=== PATIENT | male | born 1995 | race Hispanic/Latino ===

== ENCOUNTER 2019-10-29 19:19 | Observation (INO) | payer OTHER, SELFPAY ==
[~2019-10-29] VITALS: Ht 167.6 cm; Wt 90.4 kg
[2019-10-29] MEDS ORDERED: SODIUM CHLORIDE 0.9% 1000ML 1,000 ML IV ONE ×2 (19:45→22:30)
[2019-10-29] MEDS ORDERED: ACETAMINOPHEN 325 MG TAB PO ONE (19:45)
[2019-10-29] MEDS ORDERED: CEFEPIME 2 GM/NS 0.9% 100 ML 100 ML IV ONE (19:45)
[2019-10-29 20:07] LABS: BASOPHILS % 0.2 % (0.0-1.0); HEMATOCRIT 47.8 % (38.2-49.6); HEMOGLOBIN 16.1 g/dL (14.0-18.0); LYMPHOCYTES # (AUTO) 1.2 (1.0-3.2); MEAN CORPUSCULAR HEMOGLOBIN 27.9 pg (28-32); MEAN CORPUSCULAR HGB CONC 33.7 g/dL (31-35); MEAN CORPUSCULAR VOLUME 82.7 fL (81-99); MONOCYTES # (AUTO) 0.5 (0.2-0.8); MONOCYTES % 10.4 % (4.4-11.3); NEUTROPHILS # (AUTO) 3.2 (2.1-6.9); PLATELET COUNT 190 x10e3/uL (140-360); RED BLOOD COUNT 5.78 x10e6/uL (4.3-5.7); RED CELL DISTRIBUTION WIDTH 12.3 % (11.7-14.4)
[2019-10-29 20:12] LABS: INR 0.96; PROTHROMBIN TIME 13.3 seconds (11.9-14.5)
[2019-10-29 20:13] LABS: PARTIAL THROMBOPLASTIN TIME 28.5 seconds (23.8-35.5)
[2019-10-29 20:18] LABS: CLARITY,URINE SL CLOUDY (CLEAR); COLOR,URINE STRAW (YELLOW); KETONES,URINE NEGATIVE (NEGATIVE); LEUKOCYTE ESTERASE ,URINE NEGATIVE (NEGATIVE); NITRITE,URINE NEGATIVE (NEGATIVE); PROTEIN,URINE DIPSTICK 1+ (NEGATIVE); URINE UROBILINOGEN 1 mg/dL (0.2 - 1)
[2019-10-29 20:19] LABS: BILIRUBIN,URINE SMALL (NEGATIVE)
[2019-10-29 20:20] LABS: ALANINE AMINOTRANSFERASE 76 IU/L (0-55); ALBUMIN 3.9 g/dL (3.5-5.0); ALBUMIN/GLOBULIN RATIO 0.9 (0.8-2.0); ALKALINE PHOSPHATASE 23 IU/L (40-150); ANION GAP 16.6 mmol/L (8-16); BLOOD UREA NITROGEN 10 mg/dL (7-26); BUN/CREATININE RATIO 8 (6-25); CALCIUM 9.4 mg/dL (8.4-10.2); CARBON DIOXIDE 23 mmol/L (22-29); CHLORIDE 103 mmol/L (98-107); CREATININE, SERUM 1.31 mg/dL (0.72-1.25); EST GLOMERULAR FILTRATION RATE > 60 ML/MIN (60-); GLUCOSE 96 mg/dL (74-118); POTASSIUM 3.6 mmol/L (3.5-5.1); SODIUM 139 mmol/L (136-145)
--- NOTE | 2019-10-29 20:25 | Emergency Department Note ---
History of Present Illnes History of Present Illness Chief Complaint: COVID PUI History of Present Illness This is a 24 year old male FEVER, MUSCLE ACHES, CHILLS, SOB AT NIGHT X 1 WEEK WENT TO [facility] YESTERDAY AND SWABBED FOR COVID RESULTS PENDING. Patient also complaining of lower abdominal pain as well for the past several days. He is also had nausea vomiting.. Historian: Patient Arrival Mode: Car Onset (how long ago): day(s) (7) Location: abd, chest Quality: sob,lower abd pain, n/v Radiation: Reports non-radiation Severity: moderate Duration (how long): day(s) (7) Timing of current episode: constant Progression: worsening Context: Denies recent illness, Denies recent surgery Relieving factors: none Exacerbating factors: none Associated symptoms: Reports cough, Reports fever/chills, Reports headaches, Reports loss of appetite, Reports nausea/vomiting, Reports shortness of breath, Reports other (abd pain) Treatments prior to arrival: none Past Medical/Family History Physician Review I have reviewed the patient's past medical and family history. Any updates have been documented here. Past Medical History Recent Fever: Yes Clinical Suspicion of Infectio: Yes New/Unexplained Change in Ment: No Past Medical History: None Past Surgical History: None Social History Smoking Cessation: Never Smoker Alcohol Use: None Any Illegal Drug Use: No Other Last Tetanus: UTD Review of Systems Review of Systems Constitutional: Reports as per HPI EENTM: Reports no symptoms Cardiovascular: Reports no symptoms Respiratory: Reports as per HPI Gastrointestinal: Reports as per HPI Genitourinary: Reports no symptoms Musculoskeletal: Reports no symptoms Integumentary: Reports no symptoms Neurological: Reports no symptoms Psychological: Reports no symptoms Endocrine: Reports no symptoms Hematological/Lymphatic: Reports no symptoms Physical Exam Related Data Allergies: Coded Allergies: No Known Allergies (Unverified , 10/29/19) Triage Vital Signs Vital Signs Date Time Temp Pulse Resp B/P (MAP) Pulse Ox O2 Delivery O2 Flow Rate FiO2 10/29/19 19:42 102.4 118 26 126/91 100 Vital signs reviewed: Yes Physical Exam CONSTITUTIONAL Constitutional: Present well-developed, Present well-nourished HENT HENT: Present normocephalic, Present atraumatic, Present oropharynx clear/moist, Present nose normal HENT L/R: Present left ext ear normal, Present right ext ear normal EYES Eyes: Reports PERRL, Reports conjunctivae normal NECK Neck: Present ROM normal PULMONARY Pulmonary: Present effort normal, Present breath sounds normal CARDIOVASCULAR Cardiovascular: Present regular rhythm, Present heart sounds normal, Present capillary refill normal, Present tachycardia (120) GASTROINTESTINAL Abdominal: Present soft, Present bowel sounds normal, Present tender (moderate tenderness to rlq, suprapubic, and llq) GENITOURINARY Genitourinary: Present exam deferred SKIN Skin: Present warm, Present dry MUSCULOSKELETAL Musculoskeletal: Present ROM normal NEUROLOGICAL Neurological: Present alert, Present oriented x 3, Present no gross motor or sensory deficits PSYCHOLOGICAL Psychological: Present mood/affect normal, Present judgement normal Results Laboratory Result Diagram: 10/29/191948 Laboratory Laboratory Tests Test 10/29/19 19:49 White Blood Count 4.92 x10e3/uL (4.8-10.8) Red Blood Count 5.78 x10e6/uL (4.3-5.7) Hemoglobin 16.1 g/dL (14.0-18.0) Hematocrit 47.8 % (38.2-49.6) Mean Corpuscular Volume 82.7 fL (81-99) Mean Corpuscular Hemoglobin 27.9 pg (28-32) Mean Corpuscular Hemoglobin Concent 33.7 g/dL (31-35) Red Cell Distribution Width 12.3 % (11.7-14.4) Platelet Count 190 x10e3/uL (140-360) Neutrophils (%) (Auto) 65.0 % (38.7-80.0) Lymphocytes (%) (Auto) 24.0 % (18.0-39.1) Monocytes (%) (Auto) 10.4 % (4.4-11.3) Eosinophils (%) (Auto) 0.0 % (0.0-6.0) Basophils (%) (Auto) 0.2 % (0.0-1.0) Neutrophils # (Auto) 3.2 (2.1-6.9) Lymphocytes # (Auto) 1.2 (1.0-3.2) Monocytes # (Auto) 0.5 (0.2-0.8) Eosinophils # (Auto) 0.0 (0.0-0.4) Basophils # (Auto) 0.0 (0.0-0.1) Absolute Immature Granulocyte (auto 0.02 x10e3/uL (0-0.1) Prothrombin Time 13.3 seconds (11.9-14.5) Prothromb Time International Ratio 0.96 Activated Partial Thromboplast Time 28.5 seconds (23.8-35.5) Lactic Acid Level 1.7 mmol/L (0.5-2.0) Lab results reviewed: Yes Imaging Imaging results reviewed: Yes Impressions Procedure: [id number] CT/CT ABDOMEN/PELVIS W Exam Date: Exam Time: REPORT STATUS: Signed EXAM: CT Abdomen and Pelvis WITH contrast INDICATION: Abdominal pain, fever PARISON: None. TECHNIQUE: Abdomen and pelvis were scanned utilizing a multidetector helical scanner from the lung base to the pubic symphysis after administration of IV contrast. Coronal and sagittal reformations were obtained. Routine protocol was performed. Scan was performed when during portal venous phase. IV CONTRAST: 100 mL of Isovue 370 ORAL CONTRAST: None COMPLICATIONS: None RADIATION DOSE: Total DLP: 760 mGy*cm Estimated effective dose: (DLP x 0.015 x size factor) mSv CTDIvol has been reviewed. It is below the limits set by the Radiation Protocol Committee (RPC). Dose modulation, iterative reconstruction, and/or weight based adjustment of the mA/kV was utilized to reduce the radiation dose to as low as reasonably achievable. FINDINGS: LINES and TUBES: None. LOWER THORAX: Multifocal ground glass opacities in the lower lungs. HEPATOBILIARY: No focal hepatic lesions. No biliary ductal dilation. GALLBLADDER: A 2.7 cm calcified gallstone in the gallbladder fundus. No wall thickening or hydrops. SPLEEN: No splenomegaly. PANCREAS: No focal masses or ductal dilatation. ADRENALS: No adrenal nodules KIDNEYS/URETERS: Kidneys enhance symmetrically. No hydronephrosis. No cystic or solid mass lesions. No stones. GI TRACT: No abnormal distention or evidence of bowel obstruction. Small sliding gastric hiatal hernia with mild distal esophageal wall thickening. Appendix is normal. PELVIC ORGANS/BLADDER: Unremarkable. LYMPH NODES: No lymphadenopathy. VESSELS: Unremarkable. PERITONEUM / RETROPERITONEUM: No free air or fluid. BONES: Bilateral L5 inferior pars defects. SOFT TISSUES: Unremarkable. IMPRESSION: 1. Multifocal pneumonia seen in the included lower lungs. 2. Cholelithiasis without evidence of obstructive cholecystitis. 3. Small sliding gastric hiatal hernia with probable mild distal esophagitis. Signed by: Guero Kaminski DO on 10/29/2019 9:47 PM Dictated By: GUERO KAMINSKI DO 46 Transcribed By: DANIELA on 10/29/192146 COPY TO: RENY ALEXANDER MD~ Procedure: [id number] DX/CHEST SINGLE (PORTABLE) Exam Date: 10/29/19 Exam Time: 2117 REPORT STATUS: Signed EXAMINATION: CHEST SINGLE (PORTABLE) INDICATION: Fever, short of breath COMPARISON: Same day abdominal CT FINDINGS: TUBES and LINES: None. LUNGS: Normal lung volumes. Subtle patchy haziness in the lower lungs. PLEURA: No pleural effusion or pneumothorax. HEART AND MEDIASTINUM: The cardiomediastinal silhouette is unremarkable. BONES AND SOFT TISSUES: No acute osseous lesion. Soft tissues are unremarkable. UPPER ABDOMEN: No free air under the diaphragm. IMPRESSION: Subtle patchy haziness in the lower lungs corresponds to multifocal groundglass opacities as seen on concurrent abdominal CT, consistent with multifocal pneumonia. Signed by: Guero Kaminski DO on 10/29/2019 9:51 PM Dictated By: GUERO KAMINSKI DO 50 Transcribed By: DANIELA on 10/29/192150 Procedures 12 Lead ECG Interpretation ECG Interpretation : ECG: ECG 1 Customer Support Agent: Interpreted by ED physician Date: Oct 29, 2019 Time: 19:42 Rhythm: sinus tachycardia Rate: tachycardia BPM: 120 QRS axis: right ST segments normal: Yes T waves normal: Yes Other findings: no other findings Clinical Impression: abnormal ECG Assessment & Plan Medical Decision Making MDM Patient fever chills shortness of breath 1 week also complains of lower abdominal pain with vomiting. SIRS criteria as follows temp greater than 100.9, respiratory rate greater than 20, heart rate greater than 90 CBC, CMP, cardiac enzymes, EKG, chest x-ray, CT abdomen and pelvis, lactic acid, blood cultures,covid 19, urine, urine culture ordered to eval for sepsis, appendicitis, Covid 19, pneumonia, electrolyte abnormality, elevated LFTs, Tylenol on a recent 5 mg by mouth ordered, cefepime 2 g IV ordered, normal saline 1 L IV ordered Patient found to have multifocal pneumonia on imaging. There is very viral in nature. She presumptively Covid 19 at this point. Be admitted to Covid unit. I spoke with Dr. Villalta and Dr. MOOSE Peng also found to have gallstones on imaging. Assessment & Plan Final Impression: (1) Viral pneumonia (2) Fever (3) Gallstones Depart Disposition: ADMITTED Last Vital Signs Date Time Temp Pulse Resp B/P (MAP) Pulse Ox O2 Delivery O2 Flow Rate FiO2 10/29/19 19:42 102.4 118 26 126/91 100 Medications in the ED Acetaminophen 975 mg ONCE ONCE PO Last administered on 10/29/19at 20:09; Admin Dose 975 MG; Start 10/29/19 at 19:45; Stop 10/29/19 at 19:51; Status DC Sodium Chloride 1,000 ml @ 999 mls/hr Q1H1M ONCE IV Last administered on 10/29/19at 20:09; Admin Dose 999 MLS/HR; Start 10/29/19 at 19:45; Stop 10/29/19 at 20:45 Cefepime HCl 100 ml @ 200 mls/hr ONCE ONCE IV Last administered on 10/29/19at 20:09; Admin Dose 200 MLS/HR; Start 10/29/19 at 19:45; Stop 10/29/19 at 20:14; Status DC RENY LAEXANDER MD Oct 29, 2019 20:25
[2019-10-29 20:30] LABS: RBC,URINE 0-5 /HPF (0-5); WBC,URINE (MAN) 0-5 /HPF (0-5)
[2019-10-29 20:31] LABS: BACTERIA,URINE FEW /HPF
[2019-10-29 20:32] LABS: EPITHELIAL CELLS,URINE FEW /LPF
--- NOTE | 2019-10-29 21:50 | Diagnostic Imaging Report ---
EXAM: CT Abdomen and Pelvis WITH contrast INDICATION: Abdominal pain, fever PARISON: None. TECHNIQUE: Abdomen and pelvis were scanned utilizing a multidetector helical scanner from the lung base to the pubic symphysis after administration of IV contrast. Coronal and sagittal reformations were obtained. Routine protocol was performed. Scan was performed when during portal venous phase. IV CONTRAST: 100 mL of Isovue 370 ORAL CONTRAST: None COMPLICATIONS: None RADIATION DOSE: Total DLP: 760 mGy*cm Estimated effective dose: (DLP x 0.015 x size factor) mSv CTDIvol has been reviewed. It is below the limits set by the Radiation Protocol Committee (RPC). Dose modulation, iterative reconstruction, and/or weight based adjustment of the mA/kV was utilized to reduce the radiation dose to as low as reasonably achievable. FINDINGS: LINES and TUBES: None. LOWER THORAX: Multifocal ground glass opacities in the lower lungs. HEPATOBILIARY: No focal hepatic lesions. No biliary ductal dilation. GALLBLADDER: A 2.7 cm calcified gallstone in the gallbladder fundus. No wall thickening or hydrops. SPLEEN: No splenomegaly. PANCREAS: No focal masses or ductal dilatation. ADRENALS: No adrenal nodules KIDNEYS/URETERS: Kidneys enhance symmetrically. No hydronephrosis. No cystic or solid mass lesions. No stones. GI TRACT: No abnormal distention or evidence of bowel obstruction. Small sliding gastric hiatal hernia with mild distal esophageal wall thickening. Appendix is normal. PELVIC ORGANS/BLADDER: Unremarkable. LYMPH NODES: No lymphadenopathy. VESSELS: Unremarkable. PERITONEUM / RETROPERITONEUM: No free air or fluid. BONES: Bilateral L5 inferior pars defects. SOFT TISSUES: Unremarkable. IMPRESSION: 1. Multifocal pneumonia seen in the included lower lungs. 2. Cholelithiasis without evidence of obstructive cholecystitis. 3. Small sliding gastric hiatal hernia with probable mild distal esophagitis. Signed by: Guero Kaminski DO on 10/29/2019 9:47 PM
--- NOTE | 2019-10-29 21:54 | Diagnostic Imaging Report ---
EXAMINATION: CHEST SINGLE (PORTABLE) INDICATION: Fever, short of breath COMPARISON: Same day abdominal CT FINDINGS: TUBES and LINES: None. LUNGS: Normal lung volumes. Subtle patchy haziness in the lower lungs. PLEURA: No pleural effusion or pneumothorax. HEART AND MEDIASTINUM: The cardiomediastinal silhouette is unremarkable. BONES AND SOFT TISSUES: No acute osseous lesion. Soft tissues are unremarkable. UPPER ABDOMEN: No free air under the diaphragm. IMPRESSION: Subtle patchy haziness in the lower lungs corresponds to multifocal groundglass opacities as seen on concurrent abdominal CT, consistent with multifocal pneumonia. Signed by: Guero Kaminski DO on 10/29/2019 9:51 PM
[2019-10-29] MEDS ORDERED: IOPAMIDOL 370 MG/ML 200 ML INFUS..BTL INJ ONE (22:37)
[2019-10-29] MEDS ORDERED: SODIUM CHLORIDE 0.9% 50ML 50 ML ONE (22:37)
[2019-10-29] MEDS ORDERED: AZITHROMYCIN 500MG/SOD CHL 0.9% 250ML BAG IV SCH (22:45)
[2019-10-30] VITALS (9 sets, daily range): BP systolic 102–138; BP diastolic 65–98
[2019-10-30] MEDS: ACETAMINOPHEN 325 MG TAB PO PRN ×2 (01:04→09:00)
--- NOTE | 2019-10-30 01:06 | Progress Note ---
DATE: ADDENDUM: The patient has received 2 L of fluid. He seems improved with this. His heart rate has returned to 80s to 90. His saturation is 100% and he feels improved. The patient is stable for discharge home. He should return to the ER if he has worsening dyspnea. He should follow up with his PCP after he is symptom-free. He should remain in self quarantine. MD JOSE Ivory/JOSE /[id number]
[2019-10-30] MEDS: SODIUM CHLORIDE 0.9% 1000ML 1,000 ML IV SCH ×3 (01:12→14:45)
--- NOTE | 2019-10-30 02:01 | Consultation ---
DATE OF CONSULTATION: Pulmonary Critical Care Consultation CHIEF COMPLAINT: Vomiting, fever, and malaise HISTORY OF PRESENT ILLNESS: The patient is a 24-year-old man. He reports some fevers and malaise for about 2 weeks. He also notes some nausea and vomiting. He reports some mild dyspnea. He went to the [facility] yesterday and received some fluids and was tested for COVID, but has not received his results. He returns today because he is feeling worse. PAST SURGICAL HISTORY: Noncontributory. PAST MEDICAL HISTORY: 1. No prior history of asthma. 2. No prior history of heart disease. 3. No prior history of diabetes. ALLERGIES: NO KNOWN DRUG ALLERGIES. SOCIAL HISTORY: The patient is not a smoker. He is not a drinker. He does not vape. FAMILY HISTORY: Family history is noncontributory. REVIEW OF SYSTEMS: The patient is afebrile. He was febrile earlier. He has some headache. He reports malaise. He has no neck pain. He reports mild dyspnea. He does not complain of cough. There is no chest pain. He has some nausea and vomiting. There is no leg edema. He has no neurological abnormalities. PHYSICAL EXAMINATION: VITAL SIGNS: The blood pressure is 126/91, pulse is 118, and the respiratory rate is 26. Saturation is 100% and his temperature is 102.4. HEENT: Shows no facial swelling or erythema. CARDIAC: Reveals regular rate and rhythm with normal S1, S2. LUNGS: Auscultation of lungs reveals clear breath sounds bilaterally. There is no wheezing. ABDOMEN: Soft and nontender. There is no rebound or guarding. EXTREMITIES: Shows no leg edema or calf tenderness. There is no cyanosis or clubbing. SKIN: Shows no rashes. NEUROLOGICAL: Shows no focal abnormalities. LABORATORY DATA: White blood cell count is 4.9, hemoglobin is 16.1. The platelet count is 190. BUN to creatinine ratio is 10 to 1.31. Potassium is 3.6. AST is 49, ALT is 76. RADIOGRAPHIC DATA: Chest x-ray shows patchy haziness in the lower lungs suggestive of viral pneumonia. CT scan of the abdomen and pelvis shows multifocal pneumonia as well as cholelithiasis. IMPRESSION: 1. Viral pneumonia and COVID-19 infection. 2. Acute kidney injury. 3. Cholelithiasis. PLAN: 1. The patient should receive IV fluids. 2. Zithromax. 3. Tylenol. 4. Oxygen as needed. 5. Observation in hospital until kidney function and tachycardia have improved. MD JOSE Ivory/JOSE /[id number]
[2019-10-30] MEDS ORDERED: CEFEPIME HCL 2 GM/SOD CHL 0.9% 100 ML BAG IV SCH (06:00)
[2019-10-30 06:25] LABS: BASOPHILS % 0.3 % (0.0-1.0); HEMATOCRIT 47.1 % (38.2-49.6); HEMOGLOBIN 15.6 g/dL (14.0-18.0); LYMPHOCYTES # (AUTO) 1.1 (1.0-3.2); LYMPHOCYTES % 28.3 % (18.0-39.1); MEAN CORPUSCULAR HEMOGLOBIN 27.9 pg (28-32); MEAN CORPUSCULAR HGB CONC 33.1 g/dL (31-35); MEAN CORPUSCULAR VOLUME 84.1 fL (81-99); MONOCYTES # (AUTO) 0.4 (0.2-0.8); MONOCYTES % 10.5 % (4.4-11.3); NEUTROPHILS # (AUTO) 2.3 (2.1-6.9); NEUTROPHILS % 60.6 % (38.7-80.0); PLATELET COUNT 162 x10e3/uL (140-360); RED CELL DISTRIBUTION WIDTH 12.3 % (11.7-14.4)
[2019-10-30] MEDS: CEFEPIME 2 GM/NS 0.9% 100 ML 100 ML IV SCH ×2 (06:36→14:02)
[2019-10-30 06:52] LABS: ALANINE AMINOTRANSFERASE 68 IU/L (0-55); ALBUMIN 3.5 g/dL (3.5-5.0); ALBUMIN/GLOBULIN RATIO 0.9 (0.8-2.0); ALKALINE PHOSPHATASE 24 IU/L (40-150); BLOOD UREA NITROGEN 9 mg/dL (7-26); BUN/CREATININE RATIO 9 (6-25); CALCIUM 8.4 mg/dL (8.4-10.2); CARBON DIOXIDE 23 mmol/L (22-29); CHLORIDE 108 mmol/L (98-107); CREATININE, SERUM 0.99 mg/dL (0.72-1.25); EST GLOMERULAR FILTRATION RATE > 60 ML/MIN (60-); GLUCOSE 87 mg/dL (74-118); SODIUM 139 mmol/L (136-145)
[2019-10-30 07:08] LABS: CREATINE KINASE 67 IU/L (30-200)
--- NOTE | 2019-10-30 11:14 | NUR ---
GAVE PACKET OF INFORMATION WITH [facility] [employer] FOR ASSISTANCE WITH LOW TO NO INCOME TO PATIENT. RESOURCES THAT PATIENT MAY BE ABLE TO FOLLOW UP UPON DISCHARGE. PT EDUCATED ON EACH RESOURCE AND UNDERSTANDING HOW TO FOLLOW UP TO SEE IF QUALIFIED FOR EACH RESOURCE.
--- NOTE | 2019-10-30 14:55 | Progress Note ---
DATE: SUBJECTIVE: the patient has received fluids yesterday. He feels better. He has less fever and less tachycardia. PHYSICAL EXAMINATION: VITAL SIGNS: The blood pressure is 102/65, saturation is 100%, and pulse is 87. The patient is afebrile. HEENT: No facial swelling or erythema. CARDIAC: Regular rate and rhythm with normal S1, S2. LUNGS: Auscultation of lungs reveals clear breath sounds bilaterally. There is no wheezing. ABDOMEN: Soft, nontender. There is no rebound or guarding. EXTREMITIES: No leg edema or calf tenderness. There is no cyanosis or clubbing. SKIN: No rashes. NEUROLOGICAL: No focal abnormalities. LABORATORY DATA: BUN to creatinine ratio is 9 to 0.99 and the other electrolytes are within normal limits. AST is 41 and the ALT is 68. White blood cell count is 3.7 and hemoglobin is 15.6. The platelet count is 162. IMPRESSION: 1. Viral pneumonia and coronavirus disease infection. 2. Vague history of asthma. 3. Acute kidney injury. 4. Cholelithiasis. PLAN: 1. The patient is safe for discharge home. He should continue Tylenol and fluids at home. 2. The patient should continue self quarantine until he is symptom-free. MD JOSE Ivory/JOSE /[id number]
[2019-10-30 15:24] LABS: CREATINE KINASE MB 0.4 ng/mL (0-5.0)
--- NOTE | 2019-10-30 18:20 | Consultation ---
DATE OF CONSULTATION: HISTORY OF PRESENT ILLNESS: Mr. Fernandez is 24-year-old male comes in with one day of fever and malaise, not feeling well, sore throat. No shortness of breath. He was tested for COVID-19, but he does not have the result. He came here because he was not feeling well. PAST MEDICAL HISTORY: Denies. PAST SURGICAL HISTORY: Denies. ALLERGIES: NKA. SOCIAL HISTORY: There is no smoking, drug abuse, or alcohol abuse. FAMILY HISTORY: Unremarkable. REVIEW OF SYSTEMS: Mainly sore throat and fever and not feeling well. LABORATORY DATA: White count 3.7, hemoglobin 15, hematocrit 47. His COVID-19 was positive. Sodium 139, potassium 4.0, creatinine 0.99. IMPRESSION: Upper respiratory infection with COVID-19. The patient is clinically stable. Could be discharged home with [facility]. Supportive care. Push p.o. fluid. Tylenol p.r.n. push p.o. fluid. See me in 3 weeks. Follow up with me in 3 weeks. MD JULIA Boswell/JOSE /[id number]
[2019-10-30] MEDS ORDERED: AZITHROMYCIN250 MG PO (20:00)
[2019-10-30] MEDS ORDERED: TYLENOL325 M2 PO (20:02)
--- NOTE | 2019-10-30 22:32 | History and Physical ---
DATE OF DISCHARGE: 10/30/2019. No primary care physician listed. CONSULTING PHYSICIANS: 1. Dr. Yuko Luis. 2. Dr. Jelani Villalta. CHIEF COMPLAINT: Fever. HISTORY OF PRESENT ILLNESS: The patient is a 24-year-old male, admitted via the emergency department with complaints of malaise, sore throat, vomiting, weakness, and shortness of breath, who had a fever of 102.0 on Tuesday. The patient had gone to [facility] and got tested for COVID, but there was no results. At that point, he was seen and evaluated by the emergency department physician. He was admitted to the coronavirus unit of this facility under investigation for COVID. The test did come back positive. PAST MEDICAL HISTORY: He denies any past medical history. PAST SURGICAL HISTORY: Denies. SOCIAL HISTORY: Denies any history of smoking, alcohol, or illicit drug use. FAMILY HISTORY: Unremarkable. ALLERGIES: NO KNOWN ALLERGIES. MEDICATIONS: He does not take any medications at home. REVIEW OF SYSTEMS: As per History of Present Illness upon 14-point review of systems. PHYSICAL EXAMINATION: VITAL SIGNS: Temperature 98.8, heart rate 88, blood pressure 137/85, respirations 18, and oxygen saturation 100% on room air. Weight 199 pounds, BMI 32.11. GENERAL: Supine in bed, awake, alert. LUNG: Sounds clear. No wheezing. HEENT: EOMI. NECK: Supple. CARDIOVASCULAR: Regular rate and rhythm. No murmur. ABDOMEN: Bowel sounds positive. Soft and nontender. EXTREMITIES: No pitting edema. No clubbing, cyanosis, or marked swelling. NEUROLOGICAL: GCS 15. Nonfocal. LABORATORY DATA: On admission, WBC is 4.92, hemoglobin 16.1, hematocrit 47.8, and platelets 190. Sodium 139, potassium 3.6, chloride 103, CO2 23, anion gap 16.6, BUN 10, creatinine 1.31, estimated GFR greater than 60, glucose 96, lactic acid 1.7, and calcium 9.4. Total bilirubin 0.7, AST 49, ALT 76, and alkaline phosphatase 23. Total protein 8.2 and albumin 3.9. The anion gap subsequently closed and was 12 today. LFTs slightly improved. Creatine kinase today was 67 and 77, CK-MB 0.3 and 0.4, troponin I less than 0.001 and then 0.006. Urinalysis showed slightly cloudy urine, specific gravity 1.025, urine protein 1+, small amount of bilirubin, negative for leukocyte esterases, and negative for nitrites. Coronavirus PCR collected on 10/28, was detected. No results on urine culture or blood cultures x2 collected on 10/28. DIAGNOSTIC STUDIES: A 12-lead EKG showed sinus tachycardia with a heart rate of 120 on 10/28. Chest x-ray, subtle patchy haziness in the lower lungs corresponding to multifocal ground-glass opacities, as seen on concurrent abdominal CT consistent with multifocal pneumonia. CT of the abdomen and pelvis showed multifocal pneumonia seen in the included lower lungs, cholelithiasis without evidence of obstructive cholecystitis. Small sliding gastric hiatal hernia with probable mild distal esophagitis. ADMITTING AND DISCHARGE DIAGNOSES: 1. Viral multifocal community-acquired pneumonia due to COVID-19. 2. Acute kidney injury. 3. Cholelithiasis. 4. Transaminitis. The patient can discharge home on a cardiac diet. Activity level as tolerated. He needs to self-quarantine for 3 weeks. Follow up with Dr. Luis after that 3 weeks. Prescription for Z-Silver was written by Dr. Lusi. Advised Tylenol and fluids. Prescription for Tylenol provided. He can follow up with his PCP in 1 to 2 weeks. The patient was given IV azithromycin and cefepime during his stay. Time spent 60 minutes. Billing code [id number]. Dictated by Carlos Zaragoza NP MD PERRI Dill/YAZMINL /[id number]
[2019-10-31] MEDS ORDERED: AZITHROMYCIN 500MG/NS 250 ML 250 ML IV SCH
== END 2019-10-30 21:45 | disposition home or self-care (01) ==
LOC: ER 19:19 → ERHOLD 22:42 → IMCU 10-30 01:30
PROVIDERS: ADMIT Internal Medicine; ATTEND Internal Medicine
DX: U07.1 COVID-19 (principal); J12.89 Other viral pneumonia; N17.9 Acute kidney failure, unspecified; K80.20 Calculus of gallbladder without cholecystitis without obstruction; R74.0 Nonspecific elevation of levels of transaminase and lactic acid dehydrogenase [LDH]; K44.9 Diaphragmatic hernia without obstruction or gangrene
CPT/HCPCS: 36415; 71045; 74177; 80053; 81001; 82550; 82553; 83605; 84484; 85025; 85610; 85730; 87040; 87086; 87635; 93005; 96361; 99284; G0378; J0456; J7030; Q9967

== ENCOUNTER 2019-11-01 04:52 | Emergency (ER) | payer OTHER ==
[~2019-11-01] VITALS: Ht 167.6 cm; Wt 90.3 kg
[~2019-11-01 04:52] MED LIST: AZITHROMYCIN250 MG PO; TYLENOL325 M2 PO
--- NOTE | 2019-11-01 04:55 | Emergency Department Note ---
History of Present Illnes History of Present Illness Chief Complaint: General Medicine Complaints History of Present Illness This is a 24 year old male returns to the ED for dyspnea. Tested positive for COVID-19 infection earlier this week and was discharged from [facility] COVID-19 unit Onset (how long ago): week(s) Severity: moderate Onset quality: sudden Duration (how long): week(s) (1) Progression: worsening Chronicity: recurrent Context: Reports recent illness Relieving factors: none Exacerbating factors: none Associated symptoms: Reports fever/chills, Reports shortness of breath Treatments prior to arrival: none Previous service: medications given Past Medical/Family History Physician Review I have reviewed the patient's past medical and family history. Any updates have been documented here. Past Medical History Clinical Suspicion of Infectio: Yes New/Unexplained Change in Ment: No Past Medical History: None Past Surgical History: None Social History Smoking Cessation: Never Smoker Alcohol Use: None Any Illegal Drug Use: No Other Last Tetanus: UTD Review of Systems Review of Systems Constitutional: Reports fever EENTM: Reports no symptoms Cardiovascular: Reports no symptoms Respiratory: Reports dyspnea Gastrointestinal: Reports no symptoms Genitourinary: Reports no symptoms Musculoskeletal: Reports no symptoms Integumentary: Reports no symptoms Neurological: Reports no symptoms Psychological: Reports no symptoms Endocrine: Reports no symptoms Hematological/Lymphatic: Reports no symptoms Physical Exam Related Data Allergies: Coded Allergies: No Known Allergies (Unverified , 10/29/19) Triage Vital Signs Vital Signs Date Time Temp Pulse Resp B/P (MAP) Pulse Ox O2 Delivery O2 Flow Rate FiO2 11/01/19 04:53 100.8 103 20 129/88 97 Vital signs reviewed: Yes Physical Exam CONSTITUTIONAL Constitutional: Present well-developed, Present well-nourished HENT HENT: Present normocephalic, Present atraumatic, Present oropharynx clear/moist, Present nose normal HENT L/R: Present left ext ear normal, Present right ext ear normal EYES Eyes: Reports PERRL, Reports conjunctivae normal NECK Neck: Present ROM normal PULMONARY Pulmonary: Present breath sounds normal, Present respiratory distress (mild ), Present other (tachypnea) CARDIOVASCULAR Cardiovascular: Present heart sounds normal, Present capillary refill normal, Present normal rate, Present tachycardia GASTROINTESTINAL Abdominal: Present soft, Present nontender, Present bowel sounds normal GENITOURINARY Genitourinary: Present exam deferred SKIN Skin: Present warm, Present dry MUSCULOSKELETAL Musculoskeletal: Present ROM normal NEUROLOGICAL Neurological: Present alert, Present oriented x 3, Present no gross motor or sensory deficits PSYCHOLOGICAL Psychological: Present mood/affect normal, Present judgement normal Results Laboratory Lab results reviewed: Yes Laboratory comments Laboratory Tests Test 11/01/19 05:00 White Blood Count 4.76 x10e3/uL (4.8-10.8) Red Blood Count 5.77 x10e6/uL (4.3-5.7) Hemoglobin 16.0 g/dL (14.0-18.0) Hematocrit 47.1 % (38.2-49.6) Mean Corpuscular Volume 81.6 fL (81-99) Mean Corpuscular Hemoglobin 27.7 pg (28-32) Mean Corpuscular Hemoglobin Concent 34.0 g/dL (31-35) Red Cell Distribution Width 12.0 % (11.7-14.4) Platelet Count 156 x10e3/uL (140-360) Neutrophils (%) (Auto) 73.5 % (38.7-80.0) Lymphocytes (%) (Auto) 20.0 % (18.0-39.1) Monocytes (%) (Auto) 6.1 % (4.4-11.3) Eosinophils (%) (Auto) 0.0 % (0.0-6.0) Basophils (%) (Auto) 0.2 % (0.0-1.0) Neutrophils # (Auto) 3.5 (2.1-6.9) Lymphocytes # (Auto) 1.0 (1.0-3.2) Monocytes # (Auto) 0.3 (0.2-0.8) Eosinophils # (Auto) 0.0 (0.0-0.4) Basophils # (Auto) 0.0 (0.0-0.1) Absolute Immature Granulocyte (auto 0.01 x10e3/uL (0-0.1) Sodium Level 134 mmol/L (136-145) Potassium Level 3.5 mmol/L (3.5-5.1) Chloride Level 102 mmol/L (98-107) Carbon Dioxide Level 19 mmol/L (22-29) Anion Gap 16.5 mmol/L (8-16) Blood Urea Nitrogen 10 mg/dL (7-26) Creatinine 1.07 mg/dL (0.72-1.25) Estimat Glomerular Filtration Rate > 60 ML/MIN (60-) BUN/Creatinine Ratio 9 (6-25) Glucose Level 131 mg/dL (74-118) Calcium Level 8.4 mg/dL (8.4-10.2) Imaging Imaging results reviewed: Yes Impressions [place] [address] Patient Name: MAYO CA MR #: [id number] : 1995 Age/Sex: 24/M Req #: [id number] Adm Physician: Ordered by: BELLA SAMSON DO Report #: [id number] Location: ER Room/Bed: Procedure: [id number] DX/CHEST SINGLE (PORTABLE) Exam Date: 11/01/19 Exam Time: 0515 REPORT STATUS: Signed EXAMINATION: CHEST SINGLE (PORTABLE) INDICATION: Shortness of breath COMPARISON: Chest radiograph 10/29/2019 FINDINGS: LINES/TUBES:EKG leads overlie the chest. LUNGS:The lungs are moderately inflated. Unchanged minimal patchy left basilar opacities. PLEURA:No pleural effusion or pneumothorax. MEDIASTINUM:The cardiomediastinal silhouette appears normal in size and shape. BONES/SOFT TISSUES:No acute osseous injury. ABDOMEN:No free air under the diaphragm. IMPRESSION: No significant interval change. Signed by: Silvino Bernal MD on 11/01/2019 8:33 AM Dictated By: SILVINO BERNAL MD 2 Transcribed By: DANIELA on 11/01/19832 COPY TO: BELLA SAMSON DO~ Assessment & Plan Medical Decision Making MDM patient with respiratory distress . Previously diagnosed with COVID-19. Noted to be having oxygen desaturation on continuous pulse oximetry. Concern for respiratory decompensation. Patient to be transferred to [facility] for admission to COVID-unit Assessment & Plan Final Impression: (1) Upper respiratory tract infection due to COVID-19 virus (2) Hypoxia Depart Disposition: TRANS TO OTHER [facility] Home Meds Active Scripts Acetaminophen (Tylenol) 325 Mg Capsule, 650 MG PO Q6H for 21 Days, #90 CAP 0 Refills Prov:AURELIA LING MOTOR VEHICLE DISPATCHER 10/30/19 Azithromycin (Z-GENNY) 250 Mg Tablet, 250 MG PO UD for 3 Days, #1 UDPKT 0 Refills Z-Pack Prov:AURELIA LING W MOTOR VEHICLE DISPATCHER 10/30/19 Medications in the ED Methylprednisolone Sodium Succinate 125 mg ONCE ONCE IV Last administered on 11/01/19at 05:05; Admin Dose 125 MG; Start 11/01/19 at 05:00; Stop 11/01/19 at 05:01; Status DC Acetaminophen 975 mg ONCE ONCE PO ; Start 11/01/19 at 05:15; Stop 11/01/19 at 05:16; Status DC Ketorolac Tromethamine 30 mg STK-MED ONCE .ROUTE ; Start 11/01/19 at 05:13; Stop 11/01/19 at 05:08; Status DC Albuterol INH RQ4H STAT INH ; Start 11/01/19 at 05:50; Stop 11/01/19 at 05:51; Status DC Sodium Chloride 500 ml @ 0 mls/hr Q0M STAT IV ; Start 11/01/19 at 06:22; Stop 11/01/19 at 06:23; Status DC Ondansetron HCl 4 mg NOW STAT IV ; Start 11/01/19 at 06:22; Stop 11/01/19 at 0 6:40; Status DC Albuterol 2 PUFFS RQ4H INH ; Start 11/01/19 at 08:00; Stop 11/01/19 at 09:20; Status DC BELLA SAMSON DO Nov 01, 2019 04:55
[2019-11-01] MEDS ORDERED: METHYLPREDNISOLONE SOD SUCC 125 MG/2ML VIAL IV ONE (05:00)
[2019-11-01] MEDS ORDERED: KETOROLAC TROMETHAMINE 30 MG/ML VIAL ONE (05:13)
[2019-11-01] MEDS ORDERED: ACETAMINOPHEN 325 MG TAB PO ONE (05:15)
[2019-11-01 05:50] LABS: BASOPHILS % 0.2 % (0.0-1.0); HEMATOCRIT 47.1 % (38.2-49.6); MEAN CORPUSCULAR HEMOGLOBIN 27.7 pg (28-32); MEAN CORPUSCULAR VOLUME 81.6 fL (81-99); MONOCYTES # (AUTO) 0.3 (0.2-0.8); MONOCYTES % 6.1 % (4.4-11.3); NEUTROPHILS # (AUTO) 3.5 (2.1-6.9); NEUTROPHILS % 73.5 % (38.7-80.0); PLATELET COUNT 156 x10e3/uL (140-360); RED BLOOD COUNT 5.77 x10e6/uL (4.3-5.7)
[2019-11-01] MEDS ORDERED: ALBUTEROL SULFATE HFA 8GM INHALATION AEROSOL INH STA (05:50)
[2019-11-01 06:06] LABS: ANION GAP 16.5 mmol/L (8-16); BLOOD UREA NITROGEN 10 mg/dL (7-26); BUN/CREATININE RATIO 9 (6-25); CALCIUM 8.4 mg/dL (8.4-10.2); CARBON DIOXIDE 19 mmol/L (22-29); CHLORIDE 102 mmol/L (98-107); CREATININE, SERUM 1.07 mg/dL (0.72-1.25); EST GLOMERULAR FILTRATION RATE > 60 ML/MIN (60-); GLUCOSE 131 mg/dL (74-118); POTASSIUM 3.5 mmol/L (3.5-5.1); SODIUM 134 mmol/L (136-145)
--- NOTE | 2019-11-01 06:16 | NUR ---
PT UPDATED ON POC BY ED MD AT THIS TIME, INFORMED OF CURRENT BED STATUS PER [facility]; INFORMED OF NEED TO TRANSFER FOR CARE, PT VERBALIZES UNDERSTANDING.
[2019-11-01] MEDS ORDERED: ONDANSETRON HCL INJ 2MG/ML 2ML 2 MG/ML VIAL IV STA (06:22)
[2019-11-01] MEDS ORDERED: SODIUM CHLORIDE 0.9% 500ML 500 ML IV STA (06:22)
--- NOTE | 2019-11-01 06:27 | NUR ---
[facility] STATES ALL FACILITIES CURRENTLY ON SATURATION FOR COVID, PT DENIED AT THIS TIME.
--- NOTE | 2019-11-01 06:36 | NUR ---
CALLED RADIOLOGY FOR DISC
--- NOTE | 2019-11-01 06:46 | NUR ---
ATTEMPTING TRANSFER TO [facility], PENDING RESPONSE.
--- NOTE | 2019-11-01 07:02 | NUR ---
REPORT GIVEN TO SHANNAN HARDING
--- NOTE | 2019-11-01 07:08 | NUR ---
RCD ACCEPTANCE FOR TRANSFER TO [facility]
[2019-11-01] MEDS ORDERED: ALBUTEROL SULFATE HFA 8GM INHALATION AEROSOL INH SCH (08:00)
--- NOTE | 2019-11-01 08:28 | NUR ---
rcd bed assignment for client to [facility] floor 11A 1112, Yareli primary RN calling report to receiving facility at this time. [facility] called for transport.
[2019-11-01 08:30] VITALS: BP 106/62
--- NOTE | 2019-11-01 08:36 | Diagnostic Imaging Report ---
EXAMINATION: CHEST SINGLE (PORTABLE) INDICATION: Shortness of breath COMPARISON: Chest radiograph 10/29/2019 FINDINGS: LINES/TUBES:EKG leads overlie the chest. LUNGS:The lungs are moderately inflated. Unchanged minimal patchy left basilar opacities. PLEURA:No pleural effusion or pneumothorax. MEDIASTINUM:The cardiomediastinal silhouette appears normal in size and shape. BONES/SOFT TISSUES:No acute osseous injury. ABDOMEN:No free air under the diaphragm. IMPRESSION: No significant interval change. Signed by: Amparo Brooke MD on 11/01/2019 8:33 AM
== END 2019-11-01 09:19 | disposition other institution (70) ==
LOC: ER 04:52
DX: R09.02 Hypoxemia (principal); R50.9 Fever, unspecified; U07.1 COVID-19; J98.8 Other specified respiratory disorders
CPT/HCPCS: 36415; 71045; 80048; 85025; 99284; J1885; J2930

== ENCOUNTER 2019-12-11 08:22 | Emergency (ER) | payer SELFPAY ==
[~2019-12-11] VITALS: Ht 167.6 cm; Wt 95.3 kg
[2019-12-11] MEDS ORDERED: ONDANSETRON HCL INJ 2MG/ML 2ML 2 MG/ML VIAL IV STA (08:34)
[2019-12-11] MEDS ORDERED: SODIUM CHLORIDE 0.9% 1000ML 1,000 ML IV STA (08:34)
[2019-12-11] MEDS ORDERED: DICYCLOMINE HCL 20 MG/2 ML VIAL IM ONE (08:45)
[2019-12-11 08:55] LABS: BASOPHILS % 0.5 % (0.0-1.0); EOSINOPHILS # (AUTO) 0.1 (0.0-0.4); EOSINOPHILS % 1.8 % (0.0-6.0); HEMOGLOBIN 14.8 g/dL (14.0-18.0); LYMPHOCYTES # (AUTO) 2.8 (1.0-3.2); LYMPHOCYTES % 35.4 % (18.0-39.1); MEAN CORPUSCULAR HEMOGLOBIN 27.9 pg (28-32); MEAN CORPUSCULAR HGB CONC 32.9 g/dL (31-35); MEAN CORPUSCULAR VOLUME 84.7 fL (81-99); MONOCYTES # (AUTO) 0.5 (0.2-0.8); MONOCYTES % 6.9 % (4.4-11.3); NEUTROPHILS # (AUTO) 4.3 (2.1-6.9); NEUTROPHILS % 54.8 % (38.7-80.0); PLATELET COUNT 297 x10e3/uL (140-360); RED BLOOD COUNT 5.31 x10e6/uL (4.3-5.7); RED CELL DISTRIBUTION WIDTH 13.7 % (11.7-14.4)
[2019-12-11] MEDS ORDERED: PANTOPRAZOLE 40 MG 10ML VIAL IV ONE (09:00)
[2019-12-11 09:06] LABS: AMPHETAMINES SCREEN,URINE NEGATIVE (NEGATIVE); BENZODIAZEPINES SCREEN,URINE NEGATIVE (NEGATIVE); CLARITY,URINE CLEAR (CLEAR); COLOR,URINE YELLOW (YELLOW); PHENCYCLIDINE SCREEN,URINE NEGATIVE (NEGATIVE)
[2019-12-11 09:07] LABS: BILIRUBIN,URINE NEGATIVE (NEGATIVE); KETONES,URINE NEGATIVE (NEGATIVE); LEUKOCYTE ESTERASE ,URINE NEGATIVE (NEGATIVE); NITRITE,URINE NEGATIVE (NEGATIVE); PROTEIN,URINE DIPSTICK NEGATIVE (NEGATIVE); URINE UROBILINOGEN 0.2 mg/dL (0.2 - 1)
[2019-12-11 09:16] LABS: ALANINE AMINOTRANSFERASE 86 IU/L (0-55); ALBUMIN 3.8 g/dL (3.5-5.0); ALKALINE PHOSPHATASE 23 IU/L (40-150); AMYLASE 62 U/L (25-125); ANION GAP 11.7 mmol/L (8-16); BLOOD UREA NITROGEN 15 mg/dL (7-26); BUN/CREATININE RATIO 18 (6-25); CALCIUM 9.1 mg/dL (8.4-10.2); CARBON DIOXIDE 24 mmol/L (22-29); CHLORIDE 107 mmol/L (98-107); CREATININE, SERUM 0.82 mg/dL (0.72-1.25); EST GLOMERULAR FILTRATION RATE > 60 ML/MIN (60-); GLUCOSE 88 mg/dL (74-118); LIPASE 31 U/L (8-78); POTASSIUM 3.7 mmol/L (3.5-5.1); SODIUM 139 mmol/L (136-145)
[2019-12-11 09:20] LABS: BACTERIA,URINE FEW /HPF; EPITHELIAL CELLS,URINE RARE /LPF; WBC,URINE (MAN) 0-5 /HPF (0-5)
[2019-12-11 09:27] LABS: INR 0.87; PROTHROMBIN TIME 12.3 seconds (11.9-14.5)
[2019-12-11 09:28] LABS: PARTIAL THROMBOPLASTIN TIME 26.4 seconds (23.8-35.5)
[2019-12-11 09:40] VITALS: BP 121/83
--- NOTE | 2019-12-11 09:43 | Emergency Department Note ---
History of Present Illnes History of Present Illness Chief Complaint: COVID PUI History of Present Illness This is a 24 year old male STATES UPPER ABD PAIN INTERMITTENTLY X 1 MONTH, WORSE SINCE YESTERDAY, DX'D WITH GALLSTONES BY CT HERE ON 10/29/19. STATES COVID POSITIVE. NO FOLLOW UP SWAB DONE. PT HAS BEEN TO [facility], [facility], [facility], [facility] AND BACK TO [facility] ALL FOR SAME CHIEF COMPLAINT. PT APPEARS COMFORTABLE IN NO ACUTE DISTRESS. PT AAOX4. AMBULATORY. Historian: Patient Arrival Mode: Car Audit Machine Operator Required: No Onset (how long ago): month(s) (1) Location: RUQ Quality: PAIN Radiation: Reports non-radiation Severity: moderate Onset quality: gradual Timing of current episode: intermittent Progression: waxing and waning Chronicity: recurrent Context: Reports recent illness Relieving factors: none Exacerbating factors: eating Associated symptoms: Reports denies other symptoms Treatments prior to arrival: none Past Medical/Family History Physician Review I have reviewed the patient's past medical and family history. Any updates have been documented here. Past Medical History Recent Fever: No Clinical Suspicion of Infectio: No New/Unexplained Change in Ment: No Other Medical History: GALLSTONES Past Surgical History: None Social History Smoking Cessation: Current some day smoker Counseling Performed: No Alcohol Use: Social Any Illegal Drug Use: No TB Exposure/Symptoms: No Physically hurt or threatened: No Family History Family history of heart diseas: No Other Last Tetanus: UTD Any Pre-Existing Lines (PICC,: No Review of Systems Review of Systems Constitutional: Reports no symptoms EENTM: Reports no symptoms Cardiovascular: Reports no symptoms Respiratory: Reports no symptoms Gastrointestinal: Reports as per HPI Genitourinary: Reports no symptoms Musculoskeletal: Reports no symptoms Integumentary: Reports no symptoms Neurological: Reports no symptoms Psychological: Reports no symptoms Endocrine: Reports no symptoms Hematological/Lymphatic: Reports no symptoms Physical Exam Related Data Allergies: Coded Allergies: No Known Allergies (Unverified , 10/29/19) Triage Vital Signs Vital Signs Date Time Temp Pulse Resp B/P (MAP) Pulse Ox O2 Delivery O2 Flow Rate FiO2 12/11/19 08:42 98.1 74 16 124/97 100 Room Air Vital signs reviewed: Yes Physical Exam CONSTITUTIONAL Constitutional: Present well-developed, Present well-nourished HENT HENT: Present normocephalic, Present atraumatic, Present oropharynx clear/moist, Present nose normal HENT L/R: Present left ext ear normal, Present right ext ear normal EYES Eyes: Reports PERRL, Reports conjunctivae normal NECK Neck: Present ROM normal PULMONARY Pulmonary: Present effort normal, Present breath sounds normal CARDIOVASCULAR Cardiovascular: Present regular rhythm, Present heart sounds normal, Present capillary refill normal, Present normal rate GASTROINTESTINAL Abdominal: Present soft, Present bowel sounds normal, Present tender (MILD MALCOLM TENDERNESS WITHOUT R/G); Absent guarding, Absent rebound GENITOURINARY Genitourinary: Present exam deferred SKIN Skin: Present warm, Present dry MUSCULOSKELETAL Musculoskeletal: Present ROM normal NEUROLOGICAL Neurological: Present alert, Present oriented x 3, Present no gross motor or sensory deficits PSYCHOLOGICAL Psychological: Present mood/affect normal, Present judgement normal Results Laboratory Result Diagram: 12/11/19 0837 12/11/19 0837 Laboratory Laboratory Tests Test 12/11/19 08:37 White Blood Count 7.82 x10e3/uL (4.8-10.8) Red Blood Count 5.31 x10e6/uL (4.3-5.7) Hemoglobin 14.8 g/dL (14.0-18.0) Hematocrit 45.0 % (38.2-49.6) Mean Corpuscular Volume 84.7 fL (81-99) Mean Corpuscular Hemoglobin 27.9 pg (28-32) Mean Corpuscular Hemoglobin Concent 32.9 g/dL (31-35) Red Cell Distribution Width 13.7 % (11.7-14.4) Platelet Count 297 x10e3/uL (140-360) Neutrophils (%) (Auto) 54.8 % (38.7-80.0) Lymphocytes (%) (Auto) 35.4 % (18.0-39.1) Monocytes (%) (Auto) 6.9 % (4.4-11.3) Eosinophils (%) (Auto) 1.8 % (0.0-6.0) Basophils (%) (Auto) 0.5 % (0.0-1.0) Neutrophils # (Auto) 4.3 (2.1-6.9) Lymphocytes # (Auto) 2.8 (1.0-3.2) Monocytes # (Auto) 0.5 (0.2-0.8) Eosinophils # (Auto) 0.1 (0.0-0.4) Basophils # (Auto) 0.0 (0.0-0.1) Absolute Immature Granulocyte (auto 0.05 x10e3/uL (0-0.1) Prothrombin Time 12.3 seconds (11.9-14.5) Prothromb Time International Ratio 0.87 Activated Partial Thromboplast Time 26.4 seconds (23.8-35.5) Urine Color Yellow (YELLOW) Urine Clarity Clear (CLEAR) Urine pH 5.5 (5 - 7) Urine Specific [place] >=1.030 (1.010-1.025) Urine Protein Negative (NEGATIVE) Urine Glucose (UA) Negative (NEGATIVE) Urine Ketones Negative (NEGATIVE) Urine Blood Negative (NEGATIVE) Urine Nitrite Negative (NEGATIVE) Urine Bilirubin Negative (NEGATIVE) Urine Urobilinogen 0.2 mg/dL (0.2 - 1) Urine Leukocyte Esterase Negative (NEGATIVE) Urine RBC None /HPF (0-5) Urine WBC 0-5 /HPF (0-5) Urine Epithelial Cells Rare /LPF (NONE) Urine Bacteria Few /HPF (NONE) Sodium Level 139 mmol/L (136-145) Potassium Level 3.7 mmol/L (3.5-5.1) Chloride Level 107 mmol/L (98-107) Carbon Dioxide Level 24 mmol/L (22-29) Anion Gap 11.7 mmol/L (8-16) Blood Urea Nitrogen 15 mg/dL (7-26) Creatinine 0.82 mg/dL (0.72-1.25) Estimat Glomerular Filtration Rate > 60 ML/MIN (60-) BUN/Creatinine Ratio 18 (6-25) Glucose Level 88 mg/dL (74-118) Calcium Level 9.1 mg/dL (8.4-10.2) Total Bilirubin 0.4 mg/dL (0.2-1.2) Aspartate Amino Transf (AST/SGOT) 29 IU/L (5-34) Alanine Aminotransferase (ALT/SGPT) 86 IU/L (0-55) Alkaline Phosphatase 23 IU/L (40-150) Total Protein 7.5 g/dL (6.5-8.1) Albumin 3.8 g/dL (3.5-5.0) Globulin 3.7 g/dL (2.3-3.5) Albumin/Globulin Ratio 1.0 (0.8-2.0) Amylase Level 62 U/L (25-125) Lipase 31 U/L (8-78) Urine Opiates Screen Negative (NEGATIVE) Urine Methadone Screen Negative (NEGATIVE) Urine Barbiturates Screen Negative (NEGATIVE) Urine Phencyclidine Screen Negative (NEGATIVE) Urine Amphetamines Screen Negative (NEGATIVE) Urine Methamphetamines Screen Negative (NEGATIVE) Urine Benzodiazepines Screen Negative (NEGATIVE) Urine Cocaine Screen Negative (NEGATIVE) Urine Cannabinoids Screen Negative (NEGATIVE) Lab results reviewed: Yes Assessment & Plan Medical Decision Making MDM KNOWN GALLSTONES - CHECK CBC, CHEM'S, AMYLASE/LIPASE - R/O EVID OF CHOLECYSTITIS, PANCREATITIS, CHOLEDOCHOLITHIASIS, ELECTROLYTE ABNL Assessment & Plan Final Impression: (1) Gallstones Depart Disposition: HOME, SELF-CARE Last Vital Signs Date Time Temp Pulse Resp B/P (MAP) Pulse Ox O2 Delivery O2 Flow Rate FiO2 12/11/19 08:51 68 16 132/93 100 Room Air 12/11/19 08:42 98.1 Home Meds Active Scripts Acetaminophen (Tylenol) 325 Mg Capsule, 650 MG PO Q6H for 21 Days, #90 CAP 0 Refills Prov:AURELIA LING NP 10/30/19 Azithromycin (Z-GENNY) 250 Mg Tablet, 250 MG PO UD for 3 Days, #1 UDPKT 0 Refills Z-Pack Prov:AURELIA LING NP 10/30/19 Medications in the ED Pantoprazole Sodium 40 mg ONCE ONCE IV Last administered on 12/11/19at 09:13; Admin Dose 40 MG; Start 12/11/19 at 09:00; Stop 12/11/19 at 09:01 Ondansetron HCl 4 mg ONCE STAT IV Last administered on 12/11/19at 09:13; Admin Dose 4 MG; Start 12/11/19 at 08:34; Stop 12/11/19 at 08:35 Sodium Chloride 1,000 ml @ 0 mls/hr Q0M STAT IV Last administered on 12/11/19at 09:13; Admin Dose 1,000 MLS/HR; Start 12/11/19 at 08:34; Stop 12/11/19 at 08:35 Dicyclomine HCl 20 mg ONCE ONCE IM Last administered on 12/11/19at 09:13; Admin Dose 20 MG; Start 12/11/19 at 08:45; Stop 12/11/19 at 08:46 KIM ZAMBRANO MD Dec 11, 2019 09:43
--- OUTSIDE RECORDS SUMMARY | 2019-12-14 19:09 | XMS REPORT | Summary of Care ---
Author Author [facility] - Health Organization [facility] - Health Address Unknown Phone Unavailable Care Team Providers Care Rubber Cutting Machine Tender Name Role Phone Pcp, Patient Does Not Have A PCP [phone] Reason for Visit * Reason Comments Transition Of Care Encounter Details Care Team Description Date Type Department Anju Ortiz [address] [place] [id number] Transition Of Care 11/06/2019 Transition of [facility] Allergies No Known Allergiesdocumented as of this encounter (statuses as of 11/06/2019) Medications End Date Status Medication Sig Dispensed Refills Start Date Active acetaminophen (TYLENOL) Take 650 mg 0 325 mg tablet by mouth every 6 (six) hours as needed. Active albuterol 90 Inhale 2 8.5 g 0 mcg/actuation Puffs every 6 0 inhalerIndications: (six) hours COVID-19 virus infection, as needed for Epigastric pain Wheezing, Shortness of Breath, Bronchospasm or Chest tightness. Active dicyclomine 10 mg Take 1 90 capsule 0 11/03/19 2 capsuleIndications: capsule by 0 COVID-19 virus infection, mouth 3 Epigastric pain (three) times daily with meals. Active benzonatate 100 mg Take 1 30 capsule 0 02 capsuleIndications: capsule by 0 COVID-19 virus infection, mouth 3 Epigastric pain (three) times daily as needed for Cough. documented as of this encounter (statuses as of 11/06/2019) Active Problems Problem Noted Date COVID-19 virus infection 11/01/2019 Epigastric pain 11/01/2019 Nausea 11/01/2019 documented as of this encounter (statuses as of 11/06/2019) Social History Date Tobacco Use Types Packs/Day Years Used Never Smoker Smokeless Tobacco: Never Used Drinks/Week oz/Week Comments Alcohol Use Drinks liquor social ly Yes Financial Resource Strain Answer Date Recorde d How hard is it for you to pay for the very basics Not hard at all 11/01/2019 like food, housing, medical care, and h eating? Food Insecurity Answer Date Recorded Within the past 12 months, you worried that your Never laurel e 11/01/2019 food would run out before you got money to buy more. Within the past 12 months, the food you bought Never true 11/01/2019 just didn't last and you didn't have mo christi to get more. Transportation Needs Answer Date Recorded In the past 12 months, has lack of transportation No 11/01/2019 kept you from medical appointments or f rom getting medications? In the past 12 months, has lack of transportation No 11/01/2019 kept you from meetings, work, or gettin g things needed for daily living? Sex Assigned at Date Recorded Not on file Industry Job Start Date Occupation Not on file Not on file Not on file Travel End Travel History Travel Start No recent travel history available. Date Recorded COVID-19 Exposure Response 11/01/2019 3:10 PM CDT In the last month, have you been in contact with No / Unsure someone who was confirmed or suspected to have Coronavirus / COVID-19? documented as of this encounter Last Filed Vital Signs Not on filedocumented in this encounter Plan of Treatment Health Maintenance Due Date Last Done Comments VARICELLA VACCINES (1 of 1995 2 - 2-dose childhood series) DTaP,Tdap,and Td Vaccines 2005 (1 - Tdap) Depression Screening 2006 INFLUENZA VACCINE (Season 01/15/2020 Ended) HPV VACCINES Aged Out No longer eligible based on patient's age to complete this topic PNEUMOCOCCAL 0-64 YEARS Aged Out No longer elig ible based COMBINED SERIES on patient's age to complete this topic documented as of this encounter Results Not on filedocumented in this encounter Additional Health Concerns Last Indicated Resolved Time Infection Onset Date 11/01/2019 COVID-19 Confirmed 11/01/2019 documented as of this encounter
--- OUTSIDE RECORDS SUMMARY | 2019-12-14 19:09 | XMS REPORT | Summary of Care ---
Author Author [facility] - [facility] Organization [facility] - [facility] Address Unknown Phone Unavailable Care Team Providers Care Cash Applications Specialist Name Role Phone Pcp, Patient Does Not Have A PCP [phone] Reason for Referral * (Routine) Referred By Contact Referred To Contact Status Reason Specialty Diagnoses / Procedures Deniz Hooks, [address] [address] Syst, Referring/Pcp Prov Not In New Request Diagnoses COVID-19 virus infection Epigastric pain P rocedures Discharge Follow-up: PCP REFERRING/PCP PROV NOT IN SYST; 2 Weeks Reason for Visit * Auth/Cert Referred By Contact Referred To Contact Status Reason Specialty Diagnoses / Procedures Miriam [address] [place] [address] Surgery Diagnoses sob; covid+ Encounter Details Care Team Description Date Type Department Deniz Hooks, DO [address] [id number] COVID-19 virus infection 11/01/2019 Hospital Ortho/ Trauma (MIRIAM 11A) - Encounter 712 [facility] 11/03/2019 [place], [place] [id number] Allergies No Known Allergiesdocumented as of this encounter (statuses as of 11/03/2019) Medications End Date Status Medication Sig Dispensed [...] (three) times daily as needed for Cough. 11/03/2019 Discontinued azithromycin 250 mg Take 250 mg 0 tablet by mouth daily. Take 500 mg day 1, then 250 mg days 2 to 5. documented as of this encounter (statuses as of 11/03/2019) Active Problems Problem Noted Date COVID-19 virus infection 11/01/2019 Epigastric pain 11/01/2019 Nausea 11/01/2019 documented as of this encounter (statuses as of 11/03/2019) Social History Date Tobacco Use Types Packs/Day Years Used Never Smoker Smokeless Tobacco: Never Used Tobacco Cessation: Counseling Given: No Drinks/Week oz/Week Comments Alcohol Use Drinks liquor [...] of this encounter Last Filed Vital Signs Reading Time Taken Comments Vital Sign 113/68 11/03/2019 10:02 AM CDT standing up. Blood Pressure 88 11/03/2019 10:02 AM CDT Pulse 36.6 C (97.9 F) 11/03/2019 10:02 AM CDT Temperature 18 11/03/2019 10:02 AM CDT Respiratory Rate 97% 11/03/2019 10:02 AM CDT Oxygen Saturation - - Inhaled Oxygen Concentration 85 kg (187 lb 4.8 oz) 11/01/2019 11:00 AM CDT Weight - - Height - - Body Mass Index documented in this encounter Discharge Instructions * Attachments The following attachments cannot be sent through Care Everywhere.* Albuterol inhalation aerosol (Uruguayan) * Benzonatate capsules (Uruguayan) * Dicyclomine tablets or capsules (Uruguayan) documented in this encounter Progress Notes * Kayla Nova RN - 11/03/2019 2:24 PM CDT Care Management Note For public safety reasons we need to advise your Family/Friends you live with or Person/Service providing transportation of your status COVID+ or PUI. DISCHARGE CHECKLIST FOR PATIENTS WITH CONFIRMED COVID-19 INFECTION Patient Name: Jerzy Fernandez Patient Address: [address] [place] [address] [place] [address] Patient (home) [phone] (work) PCP: No primary care provider on file. Discharge Location to Private Residence Contact number for patient (preferred): [phone] Name and contact number for primary community support person:Melvin Fernandez (da d) [phone] Name and contact for secondary community support person: n/a Does patient have adequate support and resources at home (who are low risk for C OVID): Yes Is there a separate bedroom where the patient can recover without sharing immedi ate space with others? Yes ADL Considerations Can patient manage ADLs independently or with support system in their home? Yes Name and contact for available support system: Melvin Fernandez (celso) Home Health (if applicable): n/a Has HH accepted patient not applicable Name and contact information of HH agency. n/a Date of first scheduled HH visit: n/a Address of alternate housing arrangement, if applicable: n/a Is patient capable of adhering to precautions recommended as part of home care o r isolation? yes Does patient have resources/social support to receive 1-2 weeks of food and othe r necessary supplies while undergoing quarantine? Yes Community resources to assist with food insecurity for 1-2 weeks: n/a DME Needs (consider hospital to provide DME if items are unavailable to be deliv ered): n/a DME delivered to hospital, if applicable: not applicable Discharge Medications If confirmed positive, does patient have at least 14-day supply of medications a t home? yes What is the name and contact information of pharmacy: [facility] Is patients pharmacy able to fill prescription? Yes Does patient have transportation to obtain prescription medication? Yes CM Medication Request completed (if appropriate): not applicable JESE You, RN [email or web address] O: [phone] C: [phone] (not for patient use) * Kayla Nova RN - 11/03/2019 2:12 PM CDT Care Management Discharge Disposition Note (DCDN) 5-2-1 Interventions: Disease specific education;Intensive medication reconciliat ion/management;Teach back;Clear discharge plan;Follow-up appointments 5-2-1 Providers: Physician;Rat Exterminator/Truck Driver;Nurse 5-2-1 Patient Capacity Improvements: Avoidance of adverse events/readmission Discharge Plan for ongoing care and services: Home/Caregiver Home Discharge location(s): Home/Caregiver address: [address] [place] [id number] Discussed with patient/patients family involved in decision making: Yes Patient or family caregiver understands, and agrees with discharge plan. Community resources/referrals made or provided to patient: Yes Resources/Referrals: Transportation: Private Vehicle Melvin Fernandez (community health) [phone] Mental Status: Alert & Oriented to Person,Place & Time Living Arrangement: Apartment Other living arrangement: Address of living arrangement: [address] [place] [address]. [address], [facility] [address] Funding Resources: Self Pay Nursing informed of discharge plan: Yes Name of RN informed: Ruby Expected discharge date: 11/02/2019 Time: 1400 Additional Information: COVID d/c checklist completed and fax[facility] department. PPE supplied. CM/SW Name & Contact number: Kayla Nova RN Ph. [phone] The following information has been provided to the facility noted above: reason for the patient discharge or transfer; patients physical and psychosocial sta tus; summary of care, treatment, services provided to patient; and the patient p rogress toward goals. * Josi Carrasco RN - 11/01/2019 2:48 PM CDT Care Management Social Functional Assessment Patient Name: Jerzy Fernandez Age: [age] year old Sex: male A Previous admit date: N/A Due to the current COVID-19 pandemic this form/assessment was completed telephon ically. Copies of required forms will be emailed or mailed. CM spoke with patient via telephone to complete SFA. Role of Care Management ex plained. Initial CM screening and initial discharge plan established. CM anticip ates patient to discharge to prior living situation and to be provided informati on on after care, medication management, and follow-ups prior to discharge. No discharge barriers identified. Current diagnosis and co-morbidities: sob; covid+ Readmission Questions: Was patient discharged from any acute care hospital within the last 30 days: Yes Were all questions regarding previous illness/diagnosis answered prior to discha rge: Yes Did you have any difficulties with your discharge instructions: No Were you able to go to your follow-up discharge appointments: Yes Any difficulties after discharge with medications: No Any difficulties after discharge with transportation: No Any difficulties after discharge with physical conditions, support, or other barroso itations?: No Did patient refuse services that were recommended on the previous admission: No Was patient non-compliant with the previously recommended treatment: No If admitted from the ED did you call your primary MD or place a sick call/reques t with your provider?: N/A Social Functional Assessment: Primary language spoken/preferred: Uruguayan Mental Status: Alert & Oriented to Person,Place & Time Information given by: Self Patient's support system: Parent Name and number of support system: Melvin Jim (community health) [phone] Primary Corporate Ethics Officer: Self Living Arrangement: Apartment [address] [facility] [address] Persons living in home: Self;Same as support system Barriers to returning home: None Baseline functional status- ambulation: Independent Functional status-baseline personal care: Independent Baseline functional status- driving: Independent Baseline functional status- grocery shopping: Independent Functional status-baseline housekeeping: Independent Functional status-baseline meal prep: Independent Current functional status same as prior: Yes Do you have a PCP?: No Refered to: [facility], [facility], [facility] Health Care Agency: No Provider Services: No DME Company: No Equipment: None Hemodialysis: No Community resources utilized: [facility] [employer] Fact [employer];[facility] Funding Resources: Self Pay Prescription coverage plan: Self Pay Pharmacy where meds are filled: Other Other pharmacy: [facility] Anticipated services prior to disharge: Continue Medical Eval;Lab Values;Reasses s prior to discharge Expected mode of discharge transportation: Personal vehicle;Same as support syst em Additional info required for discharge planning: Pending medical evaluation Recommended discharge plan: Home Any issues or concerns with obtaining/affording your medications at home: no. Are you or your support system able to strip picker medications at discharge: yes. Han forde: dad. HAMMOND Complete: Social Functional Assessment complete: Yes Alcohol Use Screening (AUDIT-C) How often do you have a drink containing alcohol?: 2 to 4 times a month SCORE: 2 How many drinks containing alcohol do you have on a typical day when you are dri nking?: 5 or 6 drinks How often do you have six or more drinks on one occasion?: Monthly Total Score (AUDIT-C): 6 Did patient elect to have resources provided: No Actions taken: Discussed availability of resources Josi Carrasco RN, BSN Small Battery Plate Assembler [facility]-Care Management [email or web address] Office: [phone] (not for patient use) documented in this encounter Plan of Treatment Order Schedule Name Type Priority Associated Diag noses EVERY MORNING AT 0400 for 3 Occurrences starting 11/02/2019 until 11/04/2019, 2 completed CBC WITH DIFF LAB Routine EVERY MORNING AT 0400 for 3 Days startin g 11/02/2019 until 11/04/2019, 2 completed BASIC METABOLIC PANEL LAB Routine (NA, K, CL, CO2, GLUCOSE, BUN, CREATININE, CA) Health Maintenance Due Date Last Done Comments [...] this topic documented as of this encounter Procedures Comments Procedure Name Priority Date/Time Associated Diag nosis CBC WITH DIFFERENTIAL Routine 11/03/2019 4:51 AM CDT CBC WITH DIFFERENTIAL Routine 11/03/2019 4:51 AM CDT BASIC METABOLIC PANEL Routine 11/03/2019 (NA, K, CL, CO2, GLUCOSE, 4:51 AM CDT BUN, CREATININE, CA) CBC WITH DIFFERENTIAL Routine 11/02/2019 4:13 AM CDT CBC WITH DIFFERENTIAL Routine 11/02/2019 4:13 AM CDT BASIC METABOLIC PANEL Routine 11/02/2019 (NA, K, CL, CO2, GLUCOSE, 4:13 AM CDT BUN, CREATININE, CA) COVID-19 (ID NOW RAPID Routine 11/01/2019 TESTING) 3:06 PM CDT PNEUMOCOCCAL ANTIGEN Routine 11/01/2019 3:03 PM CDT LEGIONE[facility]A URINARY Routine 11/01/2019 ANTIGEN TST 3:03 PM CDT URINALYSIS Routine 11/01/2019 3:03 PM CDT CBC WITH DIFFERENTIAL JUDY 11/01/2019 3:02 PM CDT CBC WITH DIFFERENTIAL JUDY 11/01/2019 3:02 PM CDT C-REACTIVE PROTEIN Routine 11/01/2019 3:02 PM CDT PROCALCITONIN Routine 11/01/2019 3:01 PM CDT ACTIVATED PARTIAL JUDY 11/01/2019 THRMPLAS ROMARIO 3:01 PM CDT D-DIMER Routine 11/01/2019 3:01 PM CDT PROTHROMBIN TIME / INR JUDY 11/01/2019 3:01 PM CDT BASIC METABOLIC PANEL JUDY 11/01/2019 (NA, K, CL, CO2, GLUCOSE, 3:01 PM CDT BUN, CREATININE, CA) HEPATIC FUNCTION PANEL JUDY 11/01/2019 ([address]) (ALB,T.PRO,BILI 3:01 PM CDT T,BU/BC,ALT,AST,ALK PHOS) FERRITIN SERUM Routine 11/01/2019 3:01 PM CDT LIPASE Routine 11/01/2019 3:01 PM CDT LACTATE DEHYDROGENASE Routine 11/01/2019 3:01 PM CDT documented in this encounter Results * CBC WITH DIFFERENTIAL (11/03/2019 4:51 AM CDT) WBC 5.00 4.20 - 10.70 [facility] 10*3/L SERVICES RBC 5.13 4.26 - 5.52 10*6/L [facility] HGB 14.6 12.2 - 16.4 g/dL [facility] RY SERVICES HCT 43.1 38.4 - 49.3 % [facility] SERVICES MCV 84.0 81.7 - 95.6 fL [facility] SERVICES MCH 28.5 26.1 - 32.7 pg [facility] SERVICES MCHC 33.9 31.2 - 35.0 g/dL [facility] R[facility] SERVICES RDW-SD 35.8 (L) 38.5 - 51.6 fL [facility] RDW-CV 11.8 (L) 12.1 - 15.4 % [facility] PLT 186 150 - 328 10*3/L [facility] MPV 11.1 9.8 - 13.0 fL [facility] NRBC/100 WBC 0.0 0.0 - 10.0 /100 WBCs [facility] NRBC x10^3 <0.01 10*3/L [facility] GRAN MAT (NEUT) 54.8 % [facility] SERVICES IMM GRAN % 0.40 % [facility] LYMPH % 34.6 % [facility] MONO % 10.0 % [facility] EOS % 0.0 % [facility] BASO % 0.2 % [facility] GRAN MAT 2.74 1.99 - 6.95 10*3/uL [facility] x10^3(ANC) SERVICES IMM GRAN x10^3 <0.03 0.00 - 0.06 10*3/uL [facility] LYMPH x10^3 1.73 1.09 - 3.23 10*3/uL [facility] MONO x10^3 0.50 0.36 - 1.02 10*3/uL [facility] EOS x10^3 <0.03 (L) 0.06 - 0.53 10*3/uL [facility] BASO x10^3 <0.03 0.01 - 0.09 10*3/uL [facility] BANDS Increased (A) [facility] Specimen Blood - ARM, LEFT Performing Organization Address City/State/Zipcode Ph one Number [facility] CLIA: [id number], [address] [place] [address] [facility] * BASIC METABOLIC PANEL (NA, K, CL, CO2, GLUCOSE, BUN, CREATININE, CA) (11/03/2019 4:51 AM CDT) NA 137 135 - 145 mmol/L [facility] K 4.2 3.5 - 5.0 mmol/L [facility] CL 101 98 - 108 mmol/L [facility] CO2 TOTAL 30 23 - 31 mmol/L [facility] AGAP 6 2 - 16 [facility] BUN 15 7 - 23 mg/dL [facility] GLUCOSE 98 70 - 110 mg/dL [facility] CREATININE 0.85 0.60 - 1.25 mg/dL [facility] SERVICES CALCIUM 8.8 8.6 - 10.6 mg/dL [facility] SERVICES eGFR 109.8 mL/min/1.73m2 [facility] Calculation SERVICES (Non-) eGFR 133.1 mL/min/1.73m2 [facility] Calculation SERVICES () Specimen Blood - ARM, LEFT Narrative Performed At Association of Glomerular Filtration Rate (GFR) and S taging of Kidney Disease* [facility] + + +------ + SERVICES | GFR (mL/min/1.73 m2) | With Kidney Damage | Without Kidney Damage + + -------+ + | >90 | S tage one | Normal + + -------+ + | 60-89 | St age two | Decreased GFR + + -------+ + | 30-59 | St age three | Stage three + + -------+ + | 15-29 | St age four | Stage four + + -------+ + | <15 (or dialysis) | Stage fi ve | Stage five + + -------+ + *Each stage assumes the associated GFR level has been in effect for at least three months. Stages 1 to 5, with or without kidney disease, indicate chronic kidney disease. Notes: Determination of stages one and two (with eGFR >59mL/min/1.73 m2) requires estimation of kidney damage fo r at least three months as defined by structural or functional abnormalities of the kidney, manifested by either: Pathological abnormalities or Markers o f kidney damage (including abnormalities in the composition of the blood or urin e or abnormalities in imaging tests). Performing Organization Address City/State/Zipcode Ph one Number [facility] CLIA: [id number], [address] [place] [address] [facility] * CBC WITH DIFFERENTIAL (11/02/2019 4:13 AM CDT) WBC 8.03 4.20 - 10.70 [facility] 10*3/L SERVICES RBC 5.36 4.26 - 5.52 10*6/L [facility] HGB 15.2 12.2 - 16.4 g/dL [facility] HCT 43.9 38.4 - 49.3 % [facility] MCV 81.9 81.7 - 95.6 fL [facility] MCH 28.4 26.1 - 32.7 pg [facility] MCHC 34.6 31.2 - 35.0 g/dL [facility] RDW-SD 35.0 (L) 38.5 - 51.6 fL [facility] RDW-CV 11.8 (L) 12.1 - 15.4 % [facility] PLT 183 150 - 328 10*3/L [facility] MPV 11.0 9.8 - 13.0 fL [facility] NRBC/100 WBC 0.0 0.0 - 10.0 /100 WBCs [facility] NRBC x10^3 <0.01 10*3/L [facility] GRAN MAT (NEUT) 82.3 % [facility] SERVICES IMM GRAN % 0.10 % [facility] LYMPH % 11.1 % [facility] MONO % 6.4 % [facility] EOS % 0.0 % [facility] BASO % 0.1 % [facility] GRAN MAT 6.61 1.99 - 6.95 10*3/uL [facility] x10^3(ANC) SERVICES IMM GRAN x10^3 <0.03 0.00 - 0.06 10*3/uL [facility] LYMPH x10^3 0.89 (L) 1.09 - 3.23 10*3/uL [facility] MONO x10^3 0.51 0.36 - 1.02 10*3/uL [facility] EOS x10^3 <0.03 (L) 0.06 - 0.53 10*3/uL [facility] BASO x10^3 <0.03 0.01 - 0.09 10*3/uL [facility] Specimen Blood - ARM, LEFT Performing Organization Address City/State/Zipcode Ph one Number [facility] CLIA: [id number], [address] [place] [address] [facility] * BASIC METABOLIC PANEL (NA, K, CL, CO2, GLUCOSE, BUN, CREATININE, CA) (11/02/2019 4:13 AM CDT) NA 137 135 - 145 mmol/L [facility] K 4.4 3.5 - 5.0 mmol/L [facility] CL 102 98 - 108 mmol/L [facility] CO2 TOTAL 25 23 - 31 mmol/L [facility] AGAP 10 2 - 16 [facility] BUN 19 7 - 23 mg/dL [facility] GLUCOSE 120 (H) 70 - 110 mg/dL [facility] CREATININE 0.82 0.60 - 1.25 mg/dL [facility] CALCIUM 8.9 8.6 - 10.6 mg/dL [facility] SERVICES eGFR 114.5 mL/min/1.73m2 [facility] Calculation SERVICES (Non-) eGFR 138.7 mL/min/1.73m2 [facility] Calculation SERVICES () Specimen Blood - ARM, LEFT Narrative Performed At Association of Glomerular Filtration Rate (GFR) and S taging of Kidney Disease* [facility] + + +------ + SERVICES | GFR (mL/min/1.73 m2) | With Kidney Damage | Without Kidney Damage + + -------+ + | >90 | S tage one | Normal + + -------+ + | 60-89 | St age two | Decreased GFR + + -------+ + | 30-59 | St age three | Stage three + + -------+ + | 15-29 | St age four | Stage four + + -------+ + | <15 (or dialysis) | Stage fi ve | Stage five + + -------+ + *Each stage assumes the associated GFR level has been in effect for at least three months. Stages 1 to 5, with or without kidney disease, indicate chronic kidney disease. Notes: Determination of stages one and two (with eGFR >59mL/min/1.73 m2) requires estimation of kidney damage fo r at least three months as defined by structural or functional abnormalities of the kidney, manifested by either: Pathological abnormalities or Markers o f kidney damage (including abnormalities in the composition of the blood or urin e or abnormalities in imaging tests). Performing Organization Address City/State/Zipcode Ph one Number [facility] CLIA: [id number], [address] [place] [address] * COVID-19 (ID NOW RAPID TESTING) (11/01/2019 3:06 PM CDT) SARS-CoV-2 Positive (A) Not Detected [facility] Rapid ID NOW SERVICES Specimen Swab - NASOPHARYNGEAL SWAB Narrative Performed At ID NOW COVID-19 Assay is an isothermal nucleic acid amplification test intended [facility] for the qualitative detection of nucleic acid from SA RS-CoV-2 viral RNA in SERVICES nasopharyngeal (MANAGER [employer]) specimens. It is us ed under Emergency Use Authorization (EUA) by FDA. The limit of detection (L OD) of the assay is 125 Genome Equivalents/mL. A positive result is indicative of the presence of SARS-CoV-2 RNA. Clinical correlation with patient history and ot her diagnostic information is necessary to determine patient infection status. A negative (Not Detected) result does n ot preclude SARS-CoV-2 infection. In patients with clinical symptoms and oth er tests that are consistent with SARS-CoV-2 infection, negative results should be treated as presumptive negative and a new specimen should be tested wit h alternative PCR molecular test. Invalid: Please collect a new specimen for repeat patient testing if clinically indicated. Performing Organization Address City/State/Zipcode Ph one Number [facility] CLIA: [id number], [address] [place] [address] [facility] * URINALYSIS (11/01/2019 3:03 PM CDT) APPEARANCE Clear Clear [facility] COLOR Cindi (A) Yellow [facility] PH 5.0 4.8 - 8.0 [facility] SP GRAVITY 1.033 (H) 1.003 - 1.030 [facility] GLU U QUAL Normal Normal [facility] BLOOD NegativeComment: Interference Negative [facility] from ascorbic acid may cause SERVICES false negative results. KETONES 20 mg/dL (A) Negative [facility] PROTEIN 30 mg/dL (A) Negative [facility] UROBILIN 4.0 mg/dL (A) Normal [facility] BILIRUBIN Negative Negative [facility] NITRITE Negative Negative [facility] LEUK ANAND Negative Negative [facility] RBC/HPF 1 0 - 3 HPF [facility] WBC/HPF 3 0 - 5 HPF [facility] BACTERIA Negative Negative [facility] MUCOUS Marked (A) Negative LPF [facility] SQ EPITH <1 <=2 HPF [facility] HYAL CAST 3 (H) <=2 LPF [facility] ASCORBIC ACID 40 mg/dL [facility] SERVICES Specimen Urine - URINE, CLEAN CATCH Performing Organization Address [facility] one Number [facility] CLIA: [id number], [address] [place] [address] [facility] * LEGIONELLA URINARY ANTIGEN TST (11/01/2019 3:03 PM CDT) Legionella Negative Negative [facility] Urinary Antigen SERVICES Specimen Urine - URINE, CLEAN CATCH Narrative Performed At Negative for L. pneumophilia serogroup I antigen in u rine suggesting no recent [facility] or current infection. Infection due to Legionella can not be ruled out since SERVICES other serogroups and species may cause disease. Furthermore, antigens may not be present in urine during early stage of infection, or the level of antigen present in urine may be below the detec tion limit of the test. Performing Organization Address [facility] one Number [facility] CLIA: [id number], [address] [place] [id number] [facility] * PNEUMOCOCCAL ANTIGEN (11/01/2019 3:03 PM CDT) S. pneumoniae Negative Negative [facility] antigen SERVICES Specimen Urine - URINE, CLEAN CATCH Performing Organization Address [facility] [place]/[facility] one Number [facility] CLIA: [id number], [address] [place] [id number] [facility] * CBC WITH DIFFERENTIAL (11/01/2019 3:02 PM CDT) WBC 2.10 (L) 4.20 - 10.70 [facility] 10*3/L SERVICES RBC 5.68 (H) 4.26 - 5.52 10*6/L [facility] HGB 16.2 12.2 - 16.4 g/dL [facility] HCT 46.8 38.4 - 49.3 % [facility] MCV 82.4 81.7 - 95.6 fL [facility] MCH 28.5 26.1 - 32.7 pg [facility] MCHC 34.6 31.2 - 35.0 g/dL [facility] RDW-SD 36.1 (L) 38.5 - 51.6 fL [facility] RDW-CV 11.9 (L) 12.1 - 15.4 % [facility] PLT 162 150 - 328 10*3/L [facility] MPV 10.5 9.8 - 13.0 fL [facility] NRBC/100 WBC 0.0 0.0 - 10.0 /100 WBCs [facility] NRBC x10^3 <0.01 10*3/L [facility] GRAN MAT (NEUT) 75.7 % [facility] SERVICES IMM GRAN % 0.50 % [facility] LYMPH % 21.9 % [facility] MONO % 1.9 % [facility] EOS % 0.0 % [facility] BASO % 0.0 % [facility] GRAN MAT 1.59 (L) 1.99 - 6.95 10*3/uL [facility] x10^3(ANC) SERVICES IMM GRAN x10^3 <0.03 0.00 - 0.06 10*3/uL [facility] LYMPH x10^3 0.46 (L) 1.09 - 3.23 10*3/uL [facility] MONO x10^3 0.04 (L) 0.36 - 1.02 10*3/uL [facility] EOS x10^3 <0.03 (L) 0.06 - 0.53 10*3/uL [facility] BASO x10^3 <0.03 0.01 - 0.09 10*3/uL [facility] BANDS Increased (A) [facility] REACT LYMPHS Rare [facility] Specimen Blood - VENOUS Performing Organization Address City/[facility] [place]/Zipcode Ph one Number [facility] CLIA: [id number], [address] [place] [address] [facility] * C-REACTIVE PROTEIN (11/01/2019 3:02 PM CDT) CRP 2.1 (H) <0.8 mg/dL [facility] Specimen Blood - VENOUS Performing Organization Address City/[facility] [place] CLIA: [id number], [address] [place] [id number] [facility] * LIPASE (11/01/2019 3:01 PM CDT) LIPASE 80 0 - 220 U/L [facility] Specimen Blood - VENOUS Performing Organization Address City/State/[facility] one Number [facility] CLIA: [id number], [address] [place] [address] [facility] * PROCALCITONIN (11/01/2019 3:01 PM CDT) Procalcitonin 0.04 <0.07 ng/mL [facility] Specimen Blood - VENOUS Narrative Performed At INTERPRETATION OF PROCALCITONIN RESULTS IN ADULTS >= 18 YEARS OF AGE [facility] Initiation and discontinuation of antibiotics on chantal ents with suspected or SERVICES confirmed Lower Respiratory Tract Infec tion in Adults >= 18 years of age. + + +------ ---------+ + |Procalcitonin |Interpretation |Antib iotic |Considerations |ng/mL | |recommendation | + + +------ ---------+ + | <0.1 | Bacterial | Strongly | | | infection very | discouraged | Overruling: | | unlikely | | Clinically unstable + + +------ ---------+ High risk for adverse | <0.25 | Bacterial | Discouraged | outcome | | infection | | SEE IMPORTANT NOTE | | unlikely | | + + +------ ---------+ + | >=0.25 | Bacterial | Encouraged | | | infection | | | | likely | | Consider treatment failure + + +------ ---------+ if levels does not decrease | >0.5 | Bacterial | Strongly | appropriately | | infection very | encouraged | | | likely | | + + +------ ---------+ + Discontinuation of antibiotics in high- acuity patients with suspected or confirmed sepsis in Adults >= 18 years of age. + + +------ ---------+ + |Procalcitonin |Interpretation |Antib iotic |Considerations |ng/mL | |recommendation | + + +------ ---------+ + | <0.25 | Bacterial | Strongly | | | infection very | discouraged | Overruling: | | unlikely | | Clinically unstable + + +------ ---------+ High risk for adverse | <0.5 or drop | Bacterial | Disc ouraged | outcome | >80% from | infection | | SEE IMPORTANT NOTE | highest PCT | unlikely | | | level | | | + + +------ ---------+ + | >=0.5 | Bacterial | Encouraged | | | infection | | | | likely | | Consider treatment failure + + +------ ---------+ if levels does not decrease | >1.0 | Bacterial | Strongly | appropriately | | infection very | encouraged | | | likely | | + + +------ ---------+ + Percentage of drop of Procalcitonin juliet culation for Discontinuation of antibiotics in high-acuity patients wit h suspected or confirmed sepsis in Adults >= 18 years of age. Procal citonin highest{}-Procalcitonin current{} Delta Procalcitonin = x100% Procalcitonin current {} IMPORTANT NOTE: Procalcitonin may be el evated without bacterial infection by physiologic stress related to trauma, b urns, chronic dialysis, metastatic cancer, surgery in the past seven days, malaria, some fungal infections, and some forms of vasculitis. The interpret ation algorithm may not apply to patients with immunosuppression (equivalent of > 10 mg of prednisone daily), HIV with CD4 cell count < 350 cells/mm3, active m alignancy on systemic chemotherapy, solid organ transplant or hematopoietic stem cell transplantation, or hospital acquired pneumonia. Additionally, some clinical trials of procalcitonin have excluded patients with shock requiring vasopressor use, acute respiratory failure requiring mechanical ventilatio n, or those with known lung abscess/empyema. For further information please refer to : [email or web address] Performing Organization Address [facility] [place]/[facility] one Number [facility] CLIA: [id number], [address] [place] [address] [facility] * FERRITIN SERUM (11/01/2019 3:01 PM CDT) FERRITIN 409.0 18.0 - 464.0 ng/mL [facility] Specimen Blood - VENOUS Narrative Performed At Biotin has been reported to cause a neg ative bias, interpret results relative to [facility] patient's use of biotin. SERVICES Performing Organization Address [facility] [place]/[facility] one Number [facility] CLIA: [id number], [address] [place] [address] [facility] * LACTATE DEHYDROGENASE (11/01/2019 3:01 PM CDT) LDH 677 (H) 300 - 600 U/L [facility] Specimen Blood - VENOUS Performing Organization Address [facility] [place]/[facility] one Number [facility] CLIA: [id number], [address] [place] [address] [facility] * D-DIMER (11/01/2019 3:01 PM CDT) D-DIMER 0.60 (H) <0.50 g/mL (FEU) [facility] Specimen Blood - VENOUS Narrative Performed At This test may be used in conjunction with a clinical pretest probability (PTP) [facility] assessment model to exclude venous thromboembolism (V TE) in patients suspected SERVICES of deep venous thrombosis (DVT) and pul monary embolism (PE) A D-Dimer value less than 0.50 g/ml ( FEU) has a negative predicative value of 96 to 100% (95% CI)and 97 to 100% (95% CI) as an aid in the diagnosis of deep vein thrombosis (DVT) and pulmonary emb olism when there is low or moderate pretest probability of PE or DVT. D-Dimer values are expressed in initial fibrinogen equivalent units (FEU)" The assay results should be used with o ther information, including the clinical context, in forming a diagnosis. Performing Organization Address [facility] [place]/[facility] one Number [facility] CLIA: [id number], [address] [place] [address] * aPTT (11/01/2019 3:01 PM CDT) APTT Patient 30 26 - 36 Seconds [facility] Specimen Blood - VENOUS Performing Organization Address [facility] one [facility] CLIA: [id number], [address] [place], [place] [address] * Prothrombin Time / INR (11/01/2019 3:01 PM CDT) Pathologist [facility] PROTIME PATIENT 12.0 10.1 - 12.6 Seconds [facility] INR 1.1Comment: Normal INR <1.1; [facility] Warfarin Therapeutic range 2.0 SERVICES to 3.0 or 2.5 to 3.5, depending upon the indications. Specimen Blood - VENOUS Performing Organization Address [facility] CLIA: [id number], [address] [place], [place] [id number] [place] [address] * BASIC METABOLIC PANEL (NA, K, CL, CO2, GLUCOSE, BUN, CREATININE, CA) (11/01/2019 3:01 PM CDT) NA 139 135 - 145 mmol/L [facility] K 4.9 3.5 - 5.0 mmol/L [facility] CL 102 98 - 108 mmol/L [facility] CO2 TOTAL 26 23 - 31 mmol/L [facility] AGAP 11 2 - 16 [facility] BUN 19 7 - 23 mg/dL [facility] GLUCOSE 146 (H) 70 - 110 mg/dL [facility] CREATININE 0.93 0.60 - 1.25 mg/dL [facility] SERVICES CALCIUM 9.2 8.6 - 10.6 mg/dL [facility] eGFR 99.0 mL/min/1.73m2 [facility] Calculation SERVICES (Non-) eGFR 120.0 mL/min/1.73m2 [facility] Calculation SERVICES () Specimen Blood - VENOUS Narrative Performed At [facility] of Glomerular Filtration Rate (GFR) and S taging of Kidney Disease* [facility] + + +------ + SERVICES | GFR (mL/min/1.73 m2) | With Kidney Damage | Without Kidney Damage + + -------+ + | >90 | S tage one | Normal + + -------+ + | 60-89 | St age two | Decreased GFR + + -------+ + | 30-59 | St age three | Stage three + + -------+ + | 15-29 | St age four | Stage four + + -------+ + | <15 (or dialysis) | Stage fi ve | Stage five + + -------+ + *Each stage assumes the associated GFR level has been in effect for at least three months. Stages 1 to 5, with or without kidney disease, indicate chronic kidney disease. Notes: Determination of stages one and two (with eGFR >59mL/min/1.73 m2) requires estimation of kidney damage fo r at least three months as defined by structural or functional abnormalities of the kidney, manifested by either: Pathological abnormalities or Markers o f kidney damage (including abnormalities in the composition of the blood or urin e or abnormalities in imaging tests). Performing Organization Address City/State/Zipcode Ph one Number [facility] CLIA: [id number], [address] [place] [address] [facility] * HEPATIC FUNCTION PANEL (94167) (ALB,T.PRO,BILI T,BU/BC,ALT,AST,ALK PHOS) (11/01/2019 3:01 PM CDT) TOTAL BILI 0.7 0.1 - 1.1 mg/dL [facility] BILI UNCON 0.7 0.1 - 1.1 mg/dL [facility] BILI CONJ 0.0 0.0 - 0.3 mg/dL [facility] T PROTEIN 7.9 6.3 - 8.2 g/dL [facility] ALBUMIN 4.1 3.5 - 5.0 g/dL [facility] ALK PHOS 28 (L) 34 - 122 U/L [facility] ALTv 69 (H) 5 - 50 U/L [facility] AST(SGOT) 60 (H) 13 - 40 U/L [facility] Specimen Blood - VENOUS Performing Organization Address City/State/Zipcode Ph one Number [facility] CLIA: [id number], [address] [place] [address] [facility] documented in this encounter Visit Diagnoses Diagnosis COVID-19 virus infection - Primary Epigastric pain Abdominal pain, epigastric Nausea Nausea alone documented in this encounter Administered Medications Action Date Dose Rate Site Medication Order MAR Action 11/02/2019 8:13 PM CDT 650 mg acetaminophen (TYLENOL) tablet 650 mg Given 650 mg, Oral, Q6HPRN, Starting Tue11/01/19 at 1119, Until Discontinued, Routine, Pain (scale 1-3), Temp > 38.5 C 650 mg Given 11/02/2019 9:21 AM CDT 650 mg Given 11/02/2019 12:01 AM CDT 11/03/2019 1:34 PM CDT 10 mg dicyclomine (BENTYL) capsule 10 mg Given 10 mg, Oral, TID MEALS, First dose on Tue11/02/19 at 1700, Until Discontinued , Routine 10 mg Given 11/03/2019 8:26 AM CDT 10 mg Given 11/02/2019 5:32 PM CDT 11/03/2019 8:26 AM CDT 40 mg Abdomen- SC enoxaparin (LOVENOX) injection 40 mg Given 40 mg, Subcutaneous, DAILY, First dose on Tue11/02/19 at 0900, Until Discontinued, Routine 40 mg Abdomen-SC Given 11/02/2019 9:00 AM CDT 11/03/2019 8:27 AM CDT 20 mg famotidine (PEPCID AC) tablet 20 mg Given 20 mg, Oral, BID, First dose on Tue11/02/19 at 1045, Until Discontinued, Routine 20 mg Given 11/02/2019 8:10 PM CDT 11/02/2019 12:05 AM CDT 2 Puffs ipratropium (ATROVENT HFA) inhaler 2 Given Puff 2 Puff, Inhalation, Q6HPRN, Starting Th u 11/01/19 at 1119, Until Discontinued, Routine, Shortness of Breath, Wheezing, Bronchospasm, Chest tightness, Is this order for a patient with suspected or confirmed COVID-19 infection? Yes maalox:diphenhydrAMINE:lidocaine 2 % viscous 1:1:1 (FIRST-MOUTHWASH BLM) ora l suspension 15 mL 15 mL, Oral, QDAILYPRN, Starting Renea 11/01/19 at 1144, Until Discontinued, Routine, Oral mucositis, GERD ondansetron (ZOFRAN (PF)) injection 4 m g 4 mg, Slow IV Push, Q6HPRN, Starting Th u 11/01/19 at 1124, Until Discontinued, Routine, Nausea and Vomiting (N/V) 11/03/2019 8:26 AM CDT 40 mg pantoprazole (PROTONIX) EC tablet 40 mg Given 40 mg, Oral, DAILY, First dose on Renea 11/01/19 at 1145, Until Discontinued, Routine 40 mg Given 11/02/2019 9:21 AM CDT 40 mg Given 11/01/2019 5:26 PM CDT Action Date Dose Rate Site Medication Order MAR Action 11/02/2019 3:25 PM CDT 500 mL 999 mL/hr lactated ringers IV infusion 500 mL New Bag at 999 mL/hr, 500 mL, IV Infusion, ONCE , 1 dose, Tue11/02/19 at 1400, STAT 11/02/2019 5:32 PM CDT 1 Patch Back lidocaine (LIDODERM) 5 % (700 mg/patch) Given patch 1 Patch 1 Patch, Topical, Administer over 12 Hours, ONCE, 1 dose, Tue11/02/19 at 1545, Routine documented in this encounter Additional Health Concerns Last Indicated Resolved Time Infection Onset Date 11/01/2019 11/01/2019 3:56 PM CDT COVID-19 Rule Out 11/01/2019 11/01/2019 COVID-19 Confirmed 11/01/2019 documented as of this encounter
--- OUTSIDE RECORDS SUMMARY | 2019-12-14 19:09 | XMS REPORT | Summary of Care ---
Author Author [facility] - Health Organization [facility] - Health Address Unknown Phone Unavailable Care Team Providers Care Grid Inspector Name Role Phone Pcp, Patient Does Not Have A PCP [phone] Encounter Details Care Team Description Date Type Department Doctor Unassigned, [place] [address] [place] [id number] 11/21/2019 Orders Only [facility] [address] [place] [address] Allergies No Known Allergiesdocumented as of this encounter (statuses as of 11/21/2019) Medications End Date Status Medication Sig Dispensed [...] 100 mg Take 1 30 capsule 0 11/02/2 02 capsuleIndications: capsule by 0 COVID-19 virus infection, mouth 3 Epigastric pain (three) times daily as needed for Cough. documented as of this encounter (statuses as of 11/21/2019) Active Problems Problem Noted Date COVID-19 virus infection 11/01/2019 Epigastric pain 11/01/2019 Nausea 11/01/2019 documented as of this encounter (statuses as of 11/21/2019) Social History Date Tobacco Use Types Packs/Day [...] Procedure Name Priority Date/Time Associated Diag nosis EXTERNAL PROVIDER RECORDS Routine 11/21/2019 12:01 AM CDT documented in this encounter Results Not on filedocumented in this encounter Additional Health Concerns Last Indicated Resolved Time Infection Onset Date 11/01/2019 COVID-19 Confirmed 11/01/2019 documented as of this encounter
--- OUTSIDE RECORDS SUMMARY | 2019-12-14 19:09 | XMS REPORT | Continuity of Care Document ---
Author Author [facility] t Organization [facility] Address [address] [place] [address] Phone Unavailable Care Team Providers [employer] Sales Associate Name Role Phone NO, PCP PCP Unavailable Doctor Unassigned, Name No Attphys Unavailable Anju Ortiz Attphys Zaki Hooks DO Attphys BELLA SAMSON Attphys Unavailable KALE VIRK Attphys Unavailable Zaki Hooks DO Admphys KALE VIRK Admphys Unavailable Payers Payer Name Policy Type Policy Number Effective Date Expiration Date S ource Problems Condition Name Condition Details Condition Category Status Onset Date Resolution Date Last Treatment Date Treating Clinician Comments Source Viral pneumonia Problem Active [facility] Fever Problem Active [facility] Multiple gallstones Problem Active [facility] Upper respiratory tract infection due to severe acute respiratory syndrome coronavirus 2 (SARS-CoV-2) Problem Active [facility] Hypoxia Problem Active [facility] Allergies, Adverse Reactions, Alerts Allergy Name Allergy Type Status Severity Reaction(s) Onset Date Inacti ve Date Treating Clinician Comments Source No Known Allergies DA Active U 2019-11-10 00:00:00 [facility] No Known Allergies DA Active U 2019-10-28 00:00:00 [facility] Social History Social Habit Start Date Stop Date Quantity Comments Source Sex Assigned At 1995 00:00:00 1995 00:00:[address] [facility] Medications Ordered Medication Name Filled Medication Name Start Date Stop Da te Current Medication? Ordering Clinician Indication Dosage Frequency Signature (SIG) Comments Components Source Acetaminophen (Tylenol) 325 Mg CAPSULE Acetaminophen (Tyleno l) 325 Mg CAPSULE 2019-10-30 20:02:[address] [facility] Azithromycin (Z-Silver) 250 Mg TABLET Azithromycin (Z-Silver) 250 Mg TABLET 2019-10-30 20:00:00 Yes [address] [facility] Vital Signs Vital Name Observation Time Observation Value Comments Source Body Temperature 2019-12-11 09:40:00 97.5 [degF] [facility] Weight 2019-12-11 08:42:00 210 [lb_av] [facility] BMI (Body Mass Index) 2019-12-11 08:42:00 33.9 kg/m2 [facility] Body Temperature 2019-11-01 08:30:00 99.0 [degF] [facility] Weight 2019-11-01 04:53:00 199 [lb_av] [facility] BMI (Body Mass Index) 2019-11-01 04:53:00 32.1 kg/m2 [facility] Body Temperature 2019-10-30 20:00:00 100.9 [degF] [facility] BMI (Body Mass Index) 2019-10-30 05:12:00 32.2 kg/m2 [facility] Weight 2019-10-30 01:30:00 199.25 [lb_av] [facility] Procedures Procedure Date / Time Performed Performing Clinician [facility] e EMERGENCY DEPT VISIT 2019-11-01 00:00:00 [facility] Computed tomography of abdomen and pelvis with contrast 00:00:00 [facility] Plan of Care Planned Activity Planned Date Details Comments Source Instructions Cholelithiasis [facility] Encounters Start Date/Time End Date/Time Encounter Type Admission Type [facility] Care Department Encounter ID Source 2019-12-11 08:27:00 2019-12-11 09:52:00 Departed Emergency Room [facility] [id number] [facility] 2019-11-21 00:00:00 2019-11-21 00:00:00 Orders Only D octor Unassigned, [place] [facility] [id number] 2019-11-06 00:00:00 2019-11-06 00:00:00 Transition of Care Anju Ortiz [id number] 2019-11-01 10:35:00 2019-11-03 16:54:00 Hospital Encounter Deniz Hooks [facility] [id number] 2019-11-01 04:52:00 2019-11-01 09:19:00 Departed Emergency Room 1 BELLA SAMSON [facility] [id number] [facility] 2019-10-29 22:42:00 2019-10-30 21:45:00 Discharged Inpatient (obs) 1 KALE VIRK [facility] [id number] [facility] 2019-08-03 23:33:00 2019-08-03 23:33:00 Emergency E [facility] [id number] [facility] 2018-07-31 21:15:00 2018-07-31 21:15:00 Emergency E [facility] [id number] [facility] 2018-05-05 08:08:00 2018-05-05 08:08:00 Emergency E [facility] [address] [facility] Results Test Description Test Time Test Comments Results Result Comments Source Blood leukocytes automated count (number/volume) 2019-12-11 08:37:00 Test Item White Blood Count (test code = 6690-2) 7.82 4.8-10.8 [facility] erythrocytes automated count (number/volume)2019-12-11 08:37:00* Test Item Value Reference Range Interpretation Comments Red Blood Count (test code = 789-8) 5.31 4.3-5.7 [facility] hemoglobin measurement (moles/volume)2019-12-11 08:37:00* Test Item Value Reference Range Interpretation Comments Hemoglobin (test code = 52539-4) 14.8 14.0-18.0 [facility] HospitalAutom[facility] blood hematocrit (volume fraction)2019-12-11 08:37:00* Test Item Value Reference Range Interpretation Comments Hematocrit (test code = 4544-3) 45.0 38.2-49.6 [facility] HospitalAutom[facility] erythrocyte mean corpuscular kdwerr1596-65-14 08:37:00* Test Item Value Reference Range Interpretation Comments Mean Corpuscular Volume (test code = 787-2) 84.7 81-99 [facility]Autom[facility] erythrocyte mean corpuscular hemoglobin (mass per erythrocyte)2019-12-11 08:37:00* Test Item Value Reference Range Interpretation Comments Mean Corpuscular Hemoglobin (test code = 785-6) 27.9 28-32 [facility] HospitalAutom[facility] erythrocyte mean corpuscular hemoglobin concentration measurement (mass/volume)2019-12-11 08:37:00* Test Item Value Reference Range Interpretation Comments Mean Corpuscular Hemoglobin Concent (test code = 786-4) 32.9 31-35 [facility] HospitalRDW VieWu-Jkh3698-50-28 08:37:00* Test Item Value Reference Range Interpretation Comments Red Cell Distribution Width (test code = 10864-7) 13.7 11.7 -14.4 [facility] HospitalAutom[facility] blood platelet count (count/volume)2019-12-11 08:37:00* Test Item Value Reference Range Interpretation Comments Platelet Count (test code = 777-3) 297 140-360 [facility] HospitalAutom[facility] blood segmented neutrophil count as percentage of total witmaafotz6357-78-76 08:37:00* Test Item Value Reference Range Interpretation Comments Neutrophils (%) (Auto) (test code = 81516-5) 54.8 38.7-80.0 [facility] HospitalAutom[facility] blood lymphocyte count as percentage ot total flmbjfdwpu5589-15-82 08:37:00* Test Item Value Reference Range Interpretation Comments Lymphocytes (%) (Auto) (test code = 736-9) 35.4 18.0-39.1 [facility] HospitalAutom[facility] blood monocyte count as percentage of total bjxdvhykfw6390-49-85 08:37:00* Test Item Value Reference Range Interpretation Comments Monocytes (%) (Auto) (test code = 5905-5) 6.9 4.4-11.3 [facility] HospitalAutomated blood eosinophil count as percentage of total exhvcytmoo8729-11-61 08:37:00* Test Item Value Reference Range Interpretation Comments Eosinophils (%) (Auto) (test code = 713-8) 1.8 0.0-6.0 [facility] HospitalAutomated blood basophil count as percentage of total mwysjpbdbr3131-64-62 08:37:00* Test Item Value Reference Range Interpretation Comments Basophils (%) (Auto) (test code = 706-2) 0.5 0.0-1.0 [facility] HospitalFluoroscopic procedure less than one hour lvxzkicf6312-07-74 08:37:00* Test Item Value Reference Range Interpretation Comments IM GRANULOCYTES % (test code = IM GRANULOCYTES %) 0.6 0.0- 1.0 [facility] HospitalAutom[facility] blood neutrophil count 2019-12-11 08:37:00* Test Item Value Reference Range Interpretation Comments Neutrophils # (Auto) (test code = 751-8) 4.3 2.1-6.9 [facility] HospitalBlood lymphocytes count (number/volume) 2019-12-11 08:37:00* Test Item Value Reference Range Interpretation Comments Lymphocytes # (Auto) (test code = 58717-9) 2.8 1.0-3.2 [facility] HospitalBlood monocytes automated count (number/volume)2019-12-11 08:37:00* Test Item Value Reference Range Interpretation Comments Monocytes # (Auto) (test code = 742-7) 0.5 0.2-0.8 [facility] HospitalAutomated blood eosinophil count 2019-12-11 08:37:00* Test Item Value Reference Range Interpretation Comments Eosinophils # (Auto) (test code = 711-2) 0.1 0.0-0.4 [facility] HospitalAutomated blood basophil count (count/volume)2019-12-11 08:37:00* Test Item Value Reference Range Interpretation Comments Basophils # (Auto) (test code = 704-7) 0.0 0.0-0.1 [facility] HospitalFluoroscopic procedure less than one hour swjlwtbv3954-61-59 08:37:00* Test Item Value Reference Range Interpretation Comments Absolute Immature Granulocyte (auto (anne t code = Absolute Immature Granulocyte (auto) 0.05 0-0.1 [facility] HospitalProthrombin time (PT) in platelet poor plasma by coagulation jnylo0703-23-05 08:37:00* Test Item Value Reference Range Interpretation Comments Prothrombin Time (test code = 5902-2) 12.3 11.9-14.5 [facility] HospitalINR in Platelet poor plasma by Coagulation xuvrp3578-38-13 08:37:00* Test Item Value Reference Range Interpretation Comments Prothromb Time International Ratio (test code = 6301-6) 0.87 Oral Anticoagulant Therapy INR Values:1. Low Intensity Therapy 1.5 - 2.02 . Moderate Intensity Therapy 2.0 - 3.03. High Intensity Therapy(1) 2.5 - 3. 54. High Intensity Therapy(2) 3.0 - 4.05. Panic Value INR > 5.0 [facility] HospitalActivated partial thromboplastin time (aPTT) in platelet poor plasma by coagulation gxsrv0023-36-96 08:37:00* Test Item Value Reference Range Interpretation Comments Activated Partial Thromboplast Time (test code = 57582-9) 26.4 23.8-35.5 [facility] HospitalUrine color yhaievmoyunuv6070-76-53 08:37:00* Test Item Value Reference Range Interpretation Comments Urine Color (test code = 5778-6) YELLOW YELLOW [facility] HospitalUrine zwcwkym1506-48-80 08:37:00* Test Item Value Reference Range Interpretation Comments Urine Clarity (test code = 97121-1) CLEAR CLEAR [facility]pecific gravity of Urine by Test strip 2019-12-11 08:37:00* Test Item Value Reference Range Interpretation Comments Urine Specific [place] (test code = 5811-5) >=1.030 1.010-1.[address] [facility] HospitalUrine pH measurement by automated test wgbaz1621-59-89 08:37:00* Test Item Value Reference Range Interpretation Comments Urine pH (test code = 20474-8) 5.5 5-7 [facility] HospitalUrine leukocyte esterase detection by dswldxlo2409-94-01 08:37:00* Test Item Value Reference Range Interpretation Comments Urine Leukocyte Esterase (test code = 5799-2) NEGATIVE NEGATIVE [facility] HospitalUrine nitrite uveskhmqc4674-54-59 08:37:00* Test Item Value Reference Range Interpretation Comments Urine Nitrite (test code = 74850-2) NEGATIVE NEGATIVE [facility] HospitalUrine protein measurement by test strip (mass/volume)2019-12-11 08:37:00* Test Item Value Reference Range Interpretation Comments Urine Protein (test code = 5804-0) NEGATIVE NEGATIVE [facility] HospitalUrine glucose acooyujky1623-51-72 08:37:00* Test Item Value Reference Range Interpretation Comments Urine Glucose (UA) (test code = 2349-9) NEGATIVE NEGATIVE [facility] HospitalUrine ketones detection by automated test ghqmq5596-78-79 08:37:00* Test Item Value Reference Range Interpretation Comments Urine Ketones (test code = 04988-5) NEGATIVE NEGATIVE [facility] HospitalUrine opiates screening mhkr2629-39-73 08:37:00* Test Item Value Reference Range Interpretation Comments Urine Opiates Screen (test code = 33506-8) NEGATIVE NEGATIVE ALL TESTS PERFORMED MANUALLY ON BIORAD TOX/SEE TESTSt. Luke's Health [facility]lands HospitalBarbiturates screen, hdixw2267-85-54 08:37:00* Test Item Value Reference Range Interpretation Comments Urine Barbiturates Screen (test code = 047585575) NEGATIVE NEGA TIVE [facility] HospitalUrine phencyclidine detection by screening pctxgl4121-72-73 08:37:00* Test Item Value Reference Range Interpretation Comments Urine Phencyclidine Screen (test code = 62199-9) NEGATIVE NEGAT JUANIS [facility] HospitalUrine amphetamines detection by screen method > 1000 ng/jC5371-34-61 08:37:00* Test Item Value Reference Range Interpretation Comments Urine Amphetamines Screen (test code = 06794-9) NEGATIVE NEGATI VE [facility] HospitalFluoroscopic procedure less than one hour slgwkxks5053-59-78 08:37:00* Test Item Value Reference Range Interpretation Comments Urine Methamphetamines Screen (test code = Urine Metha mphetamines Screen) NEGATIVE NEGATIVE [facility] HospitalUrine benzodiazepines detection by screening ihllir4376-23-45 08:37:00* Test Item Value Reference Range Interpretation Comments Urine Benzodiazepines Screen (test code = 81213-6) NEGATIVE NEG ATIVE [facility] HospitalUrine cocaine measurement (mass/volume) 2019-12-11 08:37:00* Test Item Value Reference Range Interpretation Comments Urine Cocaine Screen (test code = 3398-5) NEGATIVE NEGATIVE [facility] HospitalUrine cannabinoids detection by screening oyqqjn7186-17-07 08:37:00* Test Item Value Reference Range Interpretation Comments Urine Cannabinoids Screen (test code = 04147-5) NEGATIVE NEGATI VE THESE RESULTS ARE FOR MEDICAL TREATMENT ONLYTHIS REPORT CONTAINS UNCONFIR MED SCREENING RESULTS*POSITIVE RESULTS WILL BE CONFIRMED BY REFERENCE LAB UPON R EQUEST CUT-OFFDRUG CLASS CONCENTRATION ng/mLAmphetamines 1000Methamphetamines 1000Cocaine 300Opiate 300Phencyc lidine 25Cannabinoid 50Barbiturates 300Benzodiazepine 300Methadone 300[facility] CenterUrine methadone ostkib3258-39-26 08:37:00* Test Item Value Reference Range Interpretation Comments Urine Methadone Screen (test code = 65046-7) NEGATIVE NEGATIVE THESE RESULTS ARE FOR MEDICAL TREATMENT ONLYTHIS REPORT CONTAINS UNCONFIR MED SCREENING RESULTS*POSITIVE RESULTS WILL BE CONFIRMED BY REFERENCE LAB UPON R EQUEST CUT-OFFDRUG CLASS CONCENTRATION ng/mLAmphetamines 1000Methamphetamines 1000Cocaine Metabolite 300Opiate 300Phencyc lidine 25Cannabinoid 50Barbiturates 300Benzodiazepine 300Methadone 300[facility] HospitalUrine urobilinogen measurement by test strip (mass/volume)2019-12-11 08:37:00* Test Item Value Reference Range Interpretation Comments Urine Urobilinogen (test code = 86882-1) 0.2 0.2-1 [facility] HospitalUrine total bilirubin measurement (mass/volume)2019-12-11 08:37:00* Test Item Value Reference Range Interpretation Comments Urine Bilirubin (test code = 1978-6) NEGATIVE NEGATIVE [facility] HospitalUrine erythrocytes dpcxrknnc5842-30-05 08:37:00* Test Item Value Reference Range Interpretation Comments Urine Blood (test code = 16026-6) NEGATIVE NEGATIVE [facility] HospitalAutomated urine sediment leukocyte count by microscopy (number/high power field)2019-12-11 08:37:00* Test Item Value Reference Range Interpretation Comments Urine WBC (test code = 5821-4) 0-5 0-5 [facility] HospitalErythrocytes detection in urine sediment by light dwxaafzhth3042-55-48 08:37:00* Test Item Value Reference Range Interpretation Comments Urine RBC (test code = 92667-0) NONE 0-5 [facility] HospitalBacteria detection in urine sediment by light iiumepmnwd5222-35-32 08:37:00* Test Item Value Reference Range Interpretation Comments Urine Bacteria (test code = 10384-7) FEW NONE [facility] HospitalEpithelial cells detection in urine sediment by light mgwlaynrpi1854-80-00 08:37:00* Test Item Value Reference Range Interpretation Comments Urine Epithelial Cells (test code = 31408-1) RARE NONE [facility] Campuserum or plasma sodium measurement (moles/volume)2019-12-11 08:37:00* Test Item Value Reference Range Interpretation Comments Sodium Level (test code = 2951-2) 139 136-145 [facility] Campuserum or plasma potassium measurement (moles/volume)2019-12-11 08:37:00* Test Item Value Reference Range Interpretation Comments Potassium Level (test code = 2823-3) 3.7 3.5-5.1 [facility] Campuserum or plasma chloride measurement (moles/volume)2019-12-11 08:37:00* Test Item Value Reference Range Interpretation Comments Chloride Level (test code = 2075-0) 107 98-107 [facility] Campuserum or plasma carbon dioxide, total measurement (moles/volume)2019-12-11 08:37:00* Test Item Value Reference Range Interpretation Comments Carbon Dioxide Level (test code = 2028-9) 24 22-29 [facility] Campuserum or plasma anion kyc6222-25-12 08:37:00* Test Item Value Reference Range Interpretation Comments Anion Gap (test code = 44075-3) 11.7 8-16 [facility] Campuserum or plasma urea nitrogen measurement (mass/volume)2019-12-11 08:37:00* Test Item Value Reference Range Interpretation Comments Blood Urea Nitrogen (test code = 3094-0) 15 7-26 [facility] Campuserum or plasma creatinine measurement (mass/volume)2019-12-11 08:37:00* Test Item Value Reference Range Interpretation Comments Creatinine (test code = 2160-0) 0.82 0.72-1.25 [facility] Campuserum or plasma urea nitrogen/creatinine mass qgdit5739-58-81 08:37:00* Test Item Value Reference Range Interpretation Comments BUN/Creatinine Ratio (test code = 3097-3) 18 6-25 [facility] HospitalEstimated glomerular filtration rate (GFR) ilckkpyzkurrf5029-08-07 08:37:00* Test Item Value Reference Range Interpretation Comments Estimat Glomerular Filtration Rate (test code = 227342486) > 60 >60 Ranges were taken from the National Kidney Disease Education Program and the [facility] literature.Reference ranges:60 or greater: Gkxycv04-13 ( for 3 consecutive months): Chronic kidney disease 15 or less: Kidney failureSt. Luke's Health – The Woodlands HospitalGlucose qddfoxewdyq0689-84-24 08:37:00* Test Item Value Reference Range Interpretation Comments Glucose Level (test code = VBD8262) 88 74-118 [facility]um or plasma calcium measurement (mass/volume)2019-12-11 08:37:00* Test Item Value Reference Range Interpretation Comments Calcium Level (test code = 52126-9) 9.1 8.4-10.2 [facility] Campuserum or plasma total bilirubin measurement (mass/volume)2019-12-11 08:37:00* Test Item Value Reference Range Interpretation Comments Total Bilirubin (test code = 1975-2) 0.4 0.2-1.2 [facility] HospitalFluoroscopic procedure less than one hour brtmlbwm8904-97-69 08:37:00* Test Item Value Reference Range Interpretation Comments Aspartate Amino Transf (AST/SGOT) (test code = Aspartate Amino Transf (AST/SGOT)) 29 5-34 [facility] Campuserum or plasma alanine aminotransferase measurement (enzymatic activity/volume)2019-12-11 08:37:00* Test Item Value Reference Range Interpretation Comments Alanine Aminotransferase (ALT/SGPT) (test code = 1742-6) 86 0-55 [facility] Camp[facility]um or plasma protein measurement (mass/volume)2019-12-11 08:37:00* Test Item Value Reference Range Interpretation Comments Total Protein (test code = 2885-2) 7.5 6.5-8.1 [facility] Camp[facility]um or plasma albumin measurement (mass/volume)2019-12-11 08:37:00* Test Item Value Reference Range Interpretation Comments Albumin (test code = 1751-7) 3.8 3.5-5.0 [facility] HospitalPlasma globulin measurement (mass/volume) 2019-12-11 08:37:00* Test Item Value Reference Range Interpretation Comments Globulin (test code = 92260-3) 3.7 2.3-3.5 [facility] Camp[facility]um or plasma albumin/globulin mass wltpi6801-48-78 08:37:00* Test Item Value Reference Range Interpretation Comments Albumin/Globulin Ratio (test code = 1759-0) 1.0 0.8-2.0 [facility]um or plasma alkaline phosphatase measurement (enzymatic activity/volume)2019-12-11 08:37:00* Test Item Value Reference Range Interpretation Comments Alkaline Phosphatase (test code = 6768-6) 23 40-150 [facility] Campuserum or plasma amylase measurement (enzymatic activity/volume)2019-12-11 08:37:00* Test Item Value Reference Range Interpretation Comments Amylase Level (test code = 1798-8) 62 25-125 [facility] Camp[facility]um or plasma lipase measurement (enzymatic activity/volume)2019-12-11 08:37:00* Test Item Value Reference Range Interpretation Comments Lipase (test code = 3040-3) 31 8-78 [facility]- US ABDOMEN [id number] 21:58:00 Name: MAYO CA [facility] : 1995 Age/S: 24 / M [address] [facility] Unit #: [id number] Loc: [place] [address] Phys: Tj Mejias MD Acct: [id number] Di s Date: Status: REG ER PHONE #: Exam Date: 11/10/20192135 FAX #: Reason: RUQ PAIN EXAMS: CPT CODE: [id number] [place] [address] HISTORY: Right upper quad rant pain. COMPARISON: None available. Location: [facility]. The liver is hyperechogenic suggesting diffuse fibrofatty infiltr ation which limited evaluation for intrahepatic mass however no discrete lesions. The liver measured 14.6 cm in length. No intra or e xtrahepatic biliary ductal dilatation. CBD is normal at 3.8 mm. Main por mana vein is patent with hepatopedal flow and normal spectral waveform. Gallbladder demonstrated multiple shadowing gallstones. No per icholecystic fluid. No wall thickening. No ascites. Right kidney is free from hydronephrosis and calyceal stones. Normal echogenicity and texture. Right kidney measured 11 cm in length. Visualized portions of the IVC, aorta and pancreas are normal however these are imaged incomplete ly. IMPRESSION: Large mobile gallstone without pericholecystic fluid or wall thickening. Fibrofatty infiltrated liver . No ascites. Electronically Signed by Kisha Yao on 020 at 2157 Reported and signed by: Aristides Yao M.D. CC: Marilin gist: Elizabeth Dallas RDTN Trnscb Date/Time: 0 11/10/2019 (2157) [email or web address] Orig Print D/T: S: 11/10/2019 (2200) Probe: PAGE 1 Signed Rep ort - US ABDOMEN [id number] 21:58:00 Name: MAYO CA [facility] : 1995 Age/S: 24 / M [address] [facility] Unit #: [id number] Loc: [place], [place] [address] Phys: Tj Mejias MD Acct: [id number] Di s Date: Status: DEP ER PHONE #: Exam Date: 11/10/20192135 FAX #: [phone] Reason: RUQ PAIN EXAMS: CPT CODE: [id number] [place] [address] HISTORY: Right upper quad rant pain. COMPARISON: None available. Location: TH. The liver is hyperechogenic suggesting diffuse fibrofatty infiltr ation which limited evaluation for intrahepatic mass however no discrete lesions. The liver measured 14.6 cm in length. No intra or e xtrahepatic biliary ductal dilatation. CBD is normal at 3.8 mm. Main por mana vein is patent with hepatopedal flow and normal spectral waveform. Gallbladder demonstrated multiple shadowing gallstones. No per icholecystic fluid. No wall thickening. No ascites. Right kidney is free from hydronephrosis and calyceal stones. Normal echogenicity and texture. Right kidney measured 11 cm in length. Visualized portions of the IVC, aorta and pancreas are normal however these are imaged incomplete ly. IMPRESSION: Large mobile gallstone without pericholecystic fluid or wall thickening. Fibrofatty infiltrated liver . No ascites. Electronically Signed by Kisha Yao on 020 at 2158 Reported and signed by: Aristides Yao M.D. CC: Marilin gist: Elizabeth [facility] Trnscb Date/Time: 0 11/10/2019 (2157) [email or web address] Orig Print D/T: S: 11/10/2019 (2200) Probe: PAGE 1 Signed Rep ort URINALYSIS [id number] 21:04:00* Test Item Value Reference Range Interpretation Comments UA COLOR (test code = COLU) YELLOW YELLOW UA APPEARANCE (test code = APPU) CLEAR CLEAR UA GLUCOSE DIPSTICK (test code = DGLUU) norm mg/dL NEGATIVE UA BILIRUBIN DIPSTICK (test code = BILU) NEGATIVE mg/dL NEGATIVE UA KETONE DIPSTICK (test code = KETU) neg mg/dL NEGATIVE UA SPECIFIC GRAVITY (test code = SGU) 1.005 1.001-1.035 UA BLOOD DIPSTICK (test code = KYLE) neg Antonio/uL NEGATIVE UA PH DIPSTICK (test code = KOBE) 5.0 5.0-8.0 UA PROTEIN DIPSTICK (test code = PROU) neg mg/dL Neg-15 UA UROBILINIOGEN DIPSTICK (test code = URO) norm mg/dL 0.0-0.2 UA NITRITE DIPSTICK (test code = RICCI) NEGATIVE NEGATIVE UA LEUKOCYTE ESTERASE DIPSTICK (test code = LEUU) neg uL NEGA TIVE UA WBC (test code = WBCU) NONE SEEN per HPF 0-5 UA RBC (test code = RBCU) NONE SEEN per HPF 0-5 UA EPITHELIAL CELLS (test code = EPIU) Few (2-5/hpf) per HPF Few UA BACTERIA (test code = BACU) TRACE per HPF NONE Urine Source? Clean CatchDRUGS OF ABUSE SCREEN [id number] 21:04:00* Test Item Value Reference Range Interpretation Comments URN COCAINE (test code = COCAURN) NEGATIVE NEGATIVE URN CANNABINOIDS (test code = CANNABURN) NEGATIVE NEGATIVE URN AMPHETAMINE (test code = AMPHETURN) NEGATIVE NEGATIVE URN BARBITURATE (test code = BARBITURN) NEGATIVE NEGATIVE URN BENZODIAZEPINE (test code = BENZOURN) NEGATIVE NEGATIVE URN OPIATES (test code = OPIATURN) POSITIVE NEGATIVE A URN PHENCYCLIDINE (PCP) (test code = PHENCURN) NEGATIVE NEGATIV E Urine Source? Clean CatchURINALYSIS [id number] 20:57:00* Test Item Value Reference Range Interpretation Comments UA COLOR (test code = COLU) YELLOW YELLOW UA APPEARANCE (test code = APPU) CLEAR CLEAR UA GLUCOSE DIPSTICK (test code = DGLUU) norm mg/dL NEGATIVE UA BILIRUBIN DIPSTICK (test code = BILU) NEGATIVE mg/dL NEGATIVE UA KETONE DIPSTICK (test code = KETU) neg mg/dL NEGATIVE UA SPECIFIC GRAVITY (test code = SGU) 1.005 1.001-1.035 UA BLOOD DIPSTICK (test code = KYLE) neg Antonio/uL NEGATIVE UA PH DIPSTICK (test code = KOBE) 5.0 5.0-8.0 UA PROTEIN DIPSTICK (test code = PROU) neg mg/dL Neg-15 UA UROBILINIOGEN DIPSTICK (test code = URO) norm mg/dL 0.0-0.2 UA NITRITE DIPSTICK (test code = RICCI) NEGATIVE NEGATIVE UA LEUKOCYTE ESTERASE DIPSTICK (test code = LEUU) neg uL NEGA TIVE UA WBC (test code = WBCU) NONE SEEN per HPF 0-5 UA RBC (test code = RBCU) NONE SEEN per HPF 0-5 UA EPITHELIAL CELLS (test code = EPIU) Few (2-5/hpf) per HPF Few UA BACTERIA (test code = BACU) TRACE per HPF NONE Urine Source? Clean CatchDRUGS OF ABUSE SCREEN [id number] 20:57:00* Test Item Value Reference Range Interpretation Comments URN COCAINE (test code = COCAURN) NEGATIVE URN CANNABINOIDS (test code = CANNABURN) NEGATIVE URN AMPHETAMINE (test code = AMPHETURN) NEGATIVE URN BARBITURATE (test code = BARBITURN) NEGATIVE URN BENZODIAZEPINE (test code = BENZOURN) NEGATIVE URN OPIATES (test code = OPIATURN) NEGATIVE URN PHENCYCLIDINE (PCP) (test code = PHENCURN) NEGATIV E Urine Source? Clean CatchBASIC METABOLIC [id number] 20:51:00* Test Item Value Reference Range Interpretation Comments SODIUM (test code = NA) 140 mmol/L 136-145 N POTASSIUM (test code = K) 3.8 mmol/L 3.5-5.1 N CHLORIDE (test code = CL) 103 mmol/L 101-109 N CARBON DIOXIDE (test code = CO2) 31.3 mmol/L 21-32 N ANION GAP (test code = GAP) 10 mmol/L 10-20 N GLUCOSE (test code = GLU) 87 mg/dL 74-106 N BLOOD UREA NITROGEN (test code = BUN) 15 mg/dL 3-21 N GLOMERULAR FILTRATION RATE (test code = GFR) > 60 mL/min >=60 Estimated GFR by using Modified MDRD formula.Chronic kidney disease is defined as either kidney damageor GFR <60 mL/min/1.73 m2 for >3 months. CREATININE (test code = CREAT) 1.00 mg/dL 0.55-1.3 N BUN/CREATININE RATIO (test code = BUN/CREA) 15.0 10-20 N CALCIUM (test code = CA) 8.3 mg/dL 8.4-10.2 L HEPATIC FUNCTION [id number] 20:51:00* Test Item Value Reference Range Interpretation Comments TOTAL PROTEIN (test code = PROT) 7.5 g/dL 6.5-8.4 N ALBUMIN (test code = ALB) 3.7 g/dL 3.4-4.8 N GLOBULIN (test code = GLOB) 3.8 G/DL 1-10 N ALBUMIN/GLOBULIN RATIO (test code = A/G) 0.97 RATIO 0.75-1.50 N BILIRUBIN TOTAL (test code = BILT) 0.20 mg/dL 0.0-1.0 N BILIRUBIN DIRECT (test code = BILD) 0.00 mg/dL 0.0-0.30 N SGOT/AST (test code = AST) 23 U/L 6-32 N SGPT/ALT (test code = ALT) 139 U/L 12-78 H N ote: Change in REFERENCE RANGE due to new reagent method. ALKALINE PHOSPHATASE TOTAL (test code = ALKP) 22 U/L 38-126 L [id number] 20:51:00* Test Item Value Reference Range Interpretation Comments LIPASE (test code = LIP) 218 U/L 128-270 N BASIC METABOLIC [id number] 20:47:00* Test Item Value Reference Range Interpretation Comments SODIUM (test code = NA) 140 mmol/L 136-145 N POTASSIUM (test code = K) 3.8 mmol/L 3.5-5.1 N CHLORIDE (test code = CL) 103 mmol/L 101-109 N CARBON DIOXIDE (test code = CO2) 31.3 mmol/L 21-32 N ANION GAP (test code = GAP) 10 mmol/L 10-20 N GLUCOSE (test code = GLU) 87 mg/dL 74-106 N BLOOD UREA NITROGEN (test code = BUN) 15 mg/dL 3-21 N GLOMERULAR FILTRATION RATE (test code = GFR) > 60 mL/min >=60 Estimated GFR by using Modified MDRD formula.Chronic kidney disease is defined as either kidney damageor GFR <60 mL/min/1.73 m2 for >3 months. CREATININE (test code = CREAT) 1.00 mg/dL 0.55-1.3 N BUN/CREATININE RATIO (test code = BUN/CREA) 15.0 10-20 N CALCIUM (test code = CA) 8.3 mg/dL 8.4-10.2 L HEPATIC FUNCTION [id number] 20:47:00* Test Item Value Reference Range Interpretation Comments TOTAL PROTEIN (test code = PROT) gram/dL 6.4-8.2 ALBUMIN (test code = ALB) g/dL 3.4-5.0 GLOBULIN (test code = GLOB) g/dL 2.7-4.2 ALBUMIN/GLOBULIN RATIO (test code = A/G) 0.75-1.50 BILIRUBIN TOTAL (test code = BILT) mg/dL 0.2-1.2 BILIRUBIN DIRECT (test code = BILD) mg/dL 0.0-0.20 SGOT/AST (test code = AST) IUnit/L 15-37 SGPT/ALT (test code = ALT) U/L 10-69 ALKALINE PHOSPHATASE TOTAL (test code = ALKP) IUnit/L 45-117 [id number] 20:47:00* Test Item Value Reference Range Interpretation Comments LIPASE (test code = LIP) Unit/L 144-286 CBC W/O [id number] 20:45:00* Test Item Value Reference Range Interpretation Comments WHITE BLOOD CELL (test code = WBC) 6.5 K/mm3 4.5-12.5 N RED BLOOD CELL (test code = RBC) 4.76 mill/mm3 4.0-5.8 N HEMOGLOBIN (test code = HGB) 13.6 gram/dL 13.0-17.5 N HEMATOCRIT (test code = HCT) 39.9 % 42.0-52.0 L MEAN CELL VOLUME (test code = MCV) 83.8 fL 80-98 N MEAN CELL HGB (test code = MCH) 28.6 picogram 27.0-33.0 N MEAN CELL HGB CONCETRATION (test code = MCHC) 34.1 gram/dL 33.0-36. 0 N RED CELL DISTRIBUTION WIDTH (test code = RDW) 11.8 % 11.6-16. 2 N RED CELL DISTRIBUTION WIDTH SD (test code = RDW-SD) 36.7 fL 37 .0-51.0 L PLATELET COUNT (test code = PLT) 465 K/mm3 150-450 H MEAN PLATELET VOLUME (test code = MPV) 9.6 fL 6.7-11.0 N CHEST SINGLE (PORTABLE)2019-11-01 08:31:00 [place] [address] Patient Name: MAYO CA MR #: [id number] : 1995 Age/Sex: 24/M Req #: [id number] Adm Physician: Ordered by: BELLA SAMSON DO Report #: [id number] Location: ER Room/Bed: Procedure: [id number] DX/CHEST SINGLE (PORTABLE) Exam Date: 11/01/19 Exam Time: 05 REPORT STATUS: Signed EXAMINATION: CHEST SINGLE (PORTABLE) INDICATION: Shortness of breath COMPARISON : Chest radiograph 10/29/2019 FINDINGS: LINES/TUBES:EKG leads over lie the chest. LUNGS:The lungs are moderately inflated. Unchanged minimal p atchy left basilar opacities. PLEURA:No pleural effusion or pneumothorax. MEDIASTINUM:The cardiomediastinal silhouette appears normal in size and sh ape. BONES/SOFT TISSUES:No acute osseous injury. ABDOMEN:No free air u nder the diaphragm. IMPRESSION: No significant interval change. Signed by: Silvino Bernal MD on 11/01/2019 8:33 AM Dictated By: SILVINO BERNAL MD 2 Transcribed By: KAILA RAN on 11/01/19832 COPY TO: BELLA SAMSON DO Blood leukocytes automated count (number/volume)2019-11-01 05:00:00* Test Item Value Reference Range Interpretation Comments White Blood Count (test code = 6690-2) 4.76 4.8-10.8 [facility] erythrocytes automated count (number/volume)2019-11-01 05:00:00* Test Item Value Reference Range Interpretation Comments Red Blood Count (test code = 789-8) 5.77 4.3-5.7 [facility]Blood hemoglobin measurement (moles/volume)2019-11-01 05:00:00* Test Item Value Reference Range Interpretation Comments Hemoglobin (test code = 52492-9) 16.0 14.0-18.0 [facility] HospitalAutomated blood hematocrit (volume fraction)2019-11-01 05:00:00* Test Item Value Reference Range Interpretation Comments Hematocrit (test code = 4544-3) 47.1 38.2-49.6 [facility] HospitalAutomated erythrocyte mean corpuscular [id number] 05:00:00* Test Item Value Reference Range Interpretation Comments Mean Corpuscular Volume (test code = 787-2) 81.6 81-99 [facility] HospitalAutomated erythrocyte mean corpuscular hemoglobin (mass per erythrocyte)2019-11-01 05:00:00* Test Item Value Reference Range Interpretation Comments Mean Corpuscular Hemoglobin (test code = 785-6) 27.7 28-32 [facility] HospitalAutomated erythrocyte mean corpuscular hemoglobin concentration measurement (mass/volume)2019-11-01 05:00:00* Test Item Value Reference Range Interpretation Comments Mean Corpuscular Hemoglobin Concent (test code = 786-4) 34.0 31-35 [facility] HospitalRDW [id number]-[id number] 05:00:00* Test Item Value Reference Range Interpretation Comments Red Cell Distribution Width (test code = 29616-0) 12.0 11.7 -14.4 [facility] HospitalAutomated blood platelet count (count/volume)2019-11-01 05:00:00* Test Item Value Reference Range Interpretation Comments Platelet Count (test code = 777-3) 156 140-360 [facility] HospitalAutomated blood segmented neutrophil count as percentage of total wrvftgsgga1383-41-23 05:00:00* Test Item Value Reference Range Interpretation Comments Neutrophils (%) (Auto) (test code = 73677-4) 73.5 38.7-80.0 [facility] HospitalAutomated blood lymphocyte count as percentage ot total [id number] 05:00:00* Test Item Value Reference Range Interpretation Comments Lymphocytes (%) (Auto) (test code = 736-9) 20.0 18.0-39.1 [facility] HospitalAutomated blood monocyte count as percentage of total egdhbjytvf9303-09-07 05:00:00* Test Item Value Reference Range Interpretation Comments Monocytes (%) (Auto) (test code = 5905-5) 6.1 4.4-11.3 [facility] HospitalAutomated blood eosinophil count as percentage of total [id number] 05:00:00* Test Item Value Reference Range Interpretation Comments Eosinophils (%) (Auto) (test code = 713-8) 0.0 0.0-6.0 [facility] HospitalAutomated blood basophil count as percentage of total itudfwyzgr9797-77-77 05:00:00* Test Item Value Reference Range Interpretation Comments Basophils (%) (Auto) (test code = 706-2) 0.2 0.0-1.0 [facility] HospitalFluoroscopic procedure less than one hour lqmwsdwm0094-95-87 05:00:00* Test Item Value Reference Range Interpretation Comments IM GRANULOCYTES % (test code = IM GRANULOCYTES %) 0.2 0.0- 1.0 [facility] HospitalAutomated blood neutrophil count 2019-11-01 05:00:00* Test Item Value Reference Range Interpretation Comments Neutrophils # (Auto) (test code = 751-8) 3.5 2.1-6.9 [facility] HospitalBlood lymphocytes count (number/volume) 2019-11-01 05:00:00* Test Item Value Reference Range Interpretation Comments Lymphocytes # (Auto) (test code = 29277-3) 1.0 1.0-3.2 [facility] HospitalBlood monocytes automated count (number/volume)2019-11-01 05:00:00* Test Item Value Reference Range Interpretation Comments Monocytes # (Auto) (test code = 742-7) 0.3 0.2-0.8 [facility] HospitalAutomated blood eosinophil count 2019-11-01 05:00:00* Test Item Value Reference Range Interpretation Comments Eosinophils # (Auto) (test code = 711-2) 0.0 0.0-0.4 [facility] HospitalAutomated blood basophil count (count/volume)2019-11-01 05:00:00* Test Item Value Reference Range Interpretation Comments Basophils # (Auto) (test code = 704-7) 0.0 0.0-0.1 [facility] HospitalFluoroscopic procedure less than one hour [id number] 05:00:00* Test Item Value Reference Range Interpretation Comments Absolute Immature Granulocyte (auto (anne t code = Absolute Immature Granulocyte (auto) 0.01 0-0.1 [facility] plasma sodium measurement (moles/volume)2019-11-01 05:00:00* Test Item Value Reference Range Interpretation Comments Sodium Level (test code = 2951-2) 134 136-145 [facility] Campuserum or plasma potassium measurement (moles/volume)2019-11-01 05:00:00* Test Item Value Reference Range Interpretation Comments Potassium Level (test code = 2823-3) 3.5 3.5-5.1 [facility]um or plasma chloride measurement (moles/volume)2019-11-01 05:00:00* Test Item Value Reference Range Interpretation Comments Chloride Level (test code = 2075-0) 102 98-107 [facility] Campuserum or plasma carbon dioxide, total measurement (moles/volume)2019-11-01 05:00:00* Test Item Value Reference Range Interpretation Comments Carbon Dioxide Level (test code = 2028-9) 19 22-29 [facility] Camp[facility]um or plasma anion [id number] 05:00:00* Test Item Value Reference Range Interpretation Comments Anion Gap (test code = 15363-3) 16.5 8-16 [facility]um or plasma urea nitrogen measurement (mass/volume)2019-11-01 05:00:00* Test Item Value Reference Range Interpretation Comments Blood Urea Nitrogen (test code = 3094-0) 10 7-26 [facility]userum or plasma creatinine measurement (mass/volume)2019-11-01 05:00:00* Test Item Value Reference Range Interpretation Comments Creatinine (test code = 2160-0) 1.07 0.72-1.25 [facility]um or plasma urea nitrogen/creatinine mass uwlkv6222-34-06 05:00:00* Test Item Value Reference Range Interpretation Comments BUN/Creatinine Ratio (test code = 3097-3) 9 6-25 [facility] HospitalEstimated glomerular filtration rate (GFR) zsxweoksdchun3180-01-58 05:00:00* Test Item Value Reference Range Interpretation Comments Estimat Glomerular Filtration Rate (test code = 314821614) > 60 >60 Ranges were taken from the National Kidney Disease Education Program and the [facility] Kidney Foundation literature.Reference ranges:60 or greater: Hnusxp17-62 ( for 3 consecutive months): Chronic kidney disease 15 or less: Kidney failureSt. Luke's Health – [facility]lands HospitalGlucose uudclvjojah3211-03-17 05:00:00* Test Item Value Reference Range Interpretation Comments Glucose Level (test code = IHT6007) 131 74-118 [facility]userum or plasma calcium measurement (mass/volume)2019-11-01 05:00:00* Test Item Value Reference Range Interpretation Comments Calcium Level (test code = 36849-7) 8.4 8.4-10.2 [facility] Campuserum or plasma creatine kinase measurement (enzymatic activity/volume)2019-10-30 14:00:00* Test Item Value Reference Range Interpretation Comments Creatine Kinase (test code = 2157-6) 77 30-200 [facility] Campuserum or plasma creatine kinase MB measurement (mass/volume)2019-10-30 14:00:00* Test Item Value Reference Range Interpretation Comments Creatine Kinase MB (test code = 45779-1) 0.40 0-5.0 [facility] HospitalTroponin I measurement by highly sensitive enzyme yksgiffuczn7831-23-73 14:00:00* Test Item Value Reference Range Interpretation Comments Troponin I (test code = 22110-6) 0.006 0-0.300 [facility]um or plasma creatine kinase measurement (enzymatic activity/volume)2019-10-30 14:00:00* Test Item Value Reference Range Interpretation Comments Creatine Kinase (test code = 2157-6) 77 30-200 [facility] Campuserum or plasma creatine kinase MB measurement (mass/volume)2019-10-30 14:00:00* Test Item Value Reference Range Interpretation Comments Creatine Kinase MB (test code = 92356-7) 0.40 0-5.0 [facility] HospitalTroponin I measurement by highly sensitive enzyme vprqkjqxyrd3843-97-99 14:00:00* Test Item Value Reference Range Interpretation Comments Troponin I (test code = 84167-8) 0.006 0-0.300 [facility]um or plasma creatine kinase measurement (enzymatic activity/volume)2019-10-30 14:00:00* Test Item Value Reference Range Interpretation Comments Creatine Kinase (test code = 2157-6) 77 30-200 [facility] Campuserum or plasma creatine kinase MB measurement (mass/volume)2019-10-30 14:00:00* Test Item Value Reference Range Interpretation Comments Creatine Kinase MB (test code = 57737-4) 0.40 0-5.0 [facility] HospitalTroponin I measurement by highly sensitive enzyme rpdmrsdzhwr5168-88-18 14:00:00* Test Item Value Reference Range Interpretation Comments Troponin I (test code = 16224-2) 0.006 0-0.300 [facility] HospitalBlood leukocytes automated count (number/volume)2019-10-30 06:11:00* Test Item Value Reference Range Interpretation Comments White Blood Count (test code = 6690-2) 3.71 4.8-10.8 [facility] HospitalBlood erythrocytes automated count (number/volume)2019-10-30 06:11:00* Test Item Value Reference Range Interpretation Comments Red Blood Count (test code = 789-8) 5.60 4.3-5.7 [facility] HospitalBlood hemoglobin measurement (moles/volume)2019-10-30 06:11:00* Test Item Value Reference Range Interpretation Comments Hemoglobin (test code = 98290-8) 15.6 14.0-18.0 [facility] HospitalAutomated blood hematocrit (volume fraction)2019-10-30 06:11:00* Test Item Value Reference Range Interpretation Comments Hematocrit (test code = 4544-3) 47.1 38.2-49.6 [facility] HospitalAutomated erythrocyte mean corpuscular yjnvij6295-01-05 06:11:00* Test Item Value Reference Range Interpretation Comments Mean Corpuscular Volume (test code = 787-2) 84.1 81-99 [facility] HospitalAutomated erythrocyte mean corpuscular hemoglobin (mass per erythrocyte)2019-10-30 06:11:00* Test Item Value Reference Range Interpretation Comments Mean Corpuscular Hemoglobin (test code = 785-6) 27.9 28-32 [facility] HospitalAutomated erythrocyte mean corpuscular hemoglobin concentration measurement (mass/volume)2019-10-30 06:11:00* Test Item Value Reference Range Interpretation Comments Mean Corpuscular Hemoglobin Concent (test code = 786-4) 33.1 31-35 [facility] HospitalRDW PnbJs-Mab1726-16-16 06:11:00* Test Item Value Reference Range Interpretation Comments Red Cell Distribution Width (test code = 99964-4) 12.3 11.7 -14.4 [facility] HospitalAutomated blood platelet count (count/volume)2019-10-30 06:11:00* Test Item Value Reference Range Interpretation Comments Platelet Count (test code = 777-3) 162 140-360 [facility] HospitalAutomated blood segmented neutrophil count as percentage of total mmogjulqdg4560-44-69 06:11:00* Test Item Value Reference Range Interpretation Comments Neutrophils (%) (Auto) (test code = 27788-7) 60.6 38.7-80.0 [facility] HospitalAutomated blood lymphocyte count as percentage ot total kzmveezyhl3504-07-76 06:11:00* Test Item Value Reference Range Interpretation Comments Lymphocytes (%) (Auto) (test code = 736-9) 28.3 18.0-39.1 [facility] HospitalAutomated blood monocyte count as percentage of total zayndvwqov8011-87-81 06:11:00* Test Item Value Reference Range Interpretation Comments Monocytes (%) (Auto) (test code = 5905-5) 10.5 4.4-11.3 [facility] HospitalAutomated blood eosinophil count as percentage of total culluyktld4464-83-72 06:11:00* Test Item Value Reference Range Interpretation Comments Eosinophils (%) (Auto) (test code = 713-8) 0.0 0.0-6.0 [facility] HospitalAutomated blood basophil count as percentage of total fatjvzhleb8735-10-06 06:11:00* Test Item Value Reference Range Interpretation Comments Basophils (%) (Auto) (test code = 706-2) 0.3 0.0-1.0 [facility] HospitalFluoroscopic procedure less than one hour uahhxoor4571-52-75 06:11:00* Test Item Value Reference Range Interpretation Comments IM GRANULOCYTES % (test code = IM GRANULOCYTES %) 0.3 0.0- 1.0 [facility] HospitalAutomated blood neutrophil count 2019-10-30 06:11:00* Test Item Value Reference Range Interpretation Comments Neutrophils # (Auto) (test code = 751-8) 2.3 2.1-6.9 [facility] HospitalBlood lymphocytes count (number/volume) 2019-10-30 06:11:00* Test Item Value Reference Range Interpretation Comments Lymphocytes # (Auto) (test code = 10638-8) 1.1 1.0-3.2 [facility] HospitalBlood monocytes automated count (number/volume)2019-10-30 06:11:00* Test Item Value Reference Range Interpretation Comments Monocytes # (Auto) (test code = 742-7) 0.4 0.2-0.8 [facility] HospitalAutomated blood eosinophil count 2019-10-30 06:11:00* Test Item Value Reference Range Interpretation Comments Eosinophils # (Auto) (test code = 711-2) 0.0 0.0-0.4 [facility] HospitalAutunc health wayneed blood basophil count (count/volume)2019-10-30 06:11:00* Test Item Value Reference Range Interpretation Comments Basophils # (Auto) (test code = 704-7) 0.0 0.0-0.1 [facility] HospitalFluoroscopic procedure less than one hour zzqvxuuu1997-20-71 06:11:00* Test Item Value Reference Range Interpretation Comments Absolute Immature Granulocyte (auto (anne t code = Absolute Immature Granulocyte (auto) 0.01 0-0.1 [facility] or plasma sodium measurement (moles/volume)2019-10-30 06:11:00* Test Item Value Reference Range Interpretation Comments Sodium Level (test code = 2951-2) 139 136-145 [facility]userum or plasma potassium measurement (moles/volume)2019-10-30 06:11:00* Test Item Value Reference Range Interpretation Comments Potassium Level (test code = 2823-3) 4.0 3.5-5.1 [facility]um or plasma chloride measurement (moles/volume)2019-10-30 06:11:00* Test Item Value Reference Range Interpretation Comments Chloride Level (test code = 2075-0) 108 98-107 [facility]userum or plasma carbon dioxide, total measurement (moles/volume)2019-10-30 06:11:00* Test Item Value Reference Range Interpretation Comments Carbon Dioxide Level (test code = 2028-9) 23 22-29 [facility]um or plasma anion moj6742-03-50 06:11:00* Test Item Value Reference Range Interpretation Comments Anion Gap (test code = 00931-0) 12.0 8-16 [facility]um or plasma urea nitrogen measurement (mass/volume)2019-10-30 06:11:00* Test Item Value Reference Range Interpretation Comments Blood Urea Nitrogen (test code = 3094-0) 9 7-26 [facility] or plasma creatinine measurement (mass/volume)2019-10-30 06:11:00* Test Item Value Reference Range Interpretation Comments Creatinine (test code = 2160-0) 0.99 0.72-1.25 [facility] or plasma urea nitrogen/creatinine mass ogxju0127-45-12 06:11:00* Test Item Value Reference Range Interpretation Comments BUN/Creatinine Ratio (test code = 3097-3) 9 6- [facility] HospitalEstimated glomerular filtration rate (GFR) bwoitrmmrsoaj8012-62-75 06:11:00* Test Item Value Reference Range Interpretation Comments Estimat Glomerular Filtration Rate (test code = 955807990) > 60 >60 Ranges were taken from the National Kidney Disease Education Program and the [facility] literature.Reference ranges:60 or greater: Xswqux07-39 ( for 3 consecutive months): Chronic kidney disease 15 or less: Kidney failureSt. Luke's Health – [facility]lands HospitalGlucose pwmzzijhweh0942-87-14 06:11:00* Test Item Value Reference Range Interpretation Comments Glucose Level (test code = OWR2817) 87 74-118 [facility] or plasma calcium measurement (mass/volume)2019-10-30 06:11:00* Test Item Value Reference Range Interpretation Comments Calcium Level (test code = 69904-1) 8.4 8.4-10.2 [facility]um or plasma total bilirubin measurement (mass/volume)2019-10-30 06:11:00* Test Item Value Reference Range Interpretation Comments Total Bilirubin (test code = 1975-2) 0.6 0.2-1.2 [facility] HospitalFluoroscopic procedure less than one hour myuoipnl1867-02-52 06:11:00* Test Item Value Reference Range Interpretation Comments Aspartate Amino Transf (AST/SGOT) (test code = Aspartate Amino Transf (AST/SGOT)) 41 5-34 [facility] or plasma alanine aminotransferase measurement (enzymatic activity/volume)2019-10-30 06:11:00* Test Item Value Reference Range Interpretation Comments Alanine Aminotransferase (ALT/SGPT) (test code = 1742-6) 68 0-55 [facility] or plasma protein measurement (mass/volume)2019-10-30 06:11:00* Test Item Value Reference Range Interpretation Comments Total Protein (test code = 2885-2) 7.5 6.5-8.1 [facility] or plasma albumin measurement (mass/volume)2019-10-30 06:11:00* Test Item Value Reference Range Interpretation Comments Albumin (test code = 1751-7) 3.5 3.5-5.0 [facility] HospitalPlasma globulin measurement (mass/volume) 2019-10-30 06:11:00* Test Item Value Reference Range Interpretation Comments Globulin (test code = 53373-1) 4.0 2.3-3.5 [facility] or plasma albumin/globulin mass cmvut0936-41-75 06:11:00* Test Item Value Reference Range Interpretation Comments Albumin/Globulin Ratio (test code = 1759-0) 0.9 0.8-2.0 [facility] or plasma alkaline phosphatase measurement (enzymatic activity/volume)2019-10-30 06:11:00* Test Item Value Reference Range Interpretation Comments Alkaline Phosphatase (test code = 6768-6) 24 40-150 [facility] or plasma total bilirubin measurement (mass/volume)2019-10-30 06:11:00* Test Item Value Reference Range Interpretation Comments Total Bilirubin (test code = 1975-2) 0.6 0.2-1.2 [facility] HospitalFluoroscopic procedure less than one hour mfdvdtux5227-15-02 06:11:00* Test Item Value Reference Range Interpretation Comments Aspartate Amino Transf (AST/SGOT) (test code = Aspartate Amino Transf (AST/SGOT)) 41 5-34 [facility]um or plasma alanine aminotransferase measurement (enzymatic activity/volume)2019-10-30 06:11:00* Test Item Value Reference Range Interpretation Comments Alanine Aminotransferase (ALT/SGPT) (test code = 1742-6) 68 0-55 [facility] or plasma protein measurement (mass/volume)2019-10-30 06:11:00* Test Item Value Reference Range Interpretation Comments Total Protein (test code = 2885-2) 7.5 6.5-8.1 [facility] or plasma albumin measurement (mass/volume)2019-10-30 06:11:00* Test Item Value Reference Range Interpretation Comments Albumin (test code = 1751-7) 3.5 3.5-5.0 [facility] HospitalPlasma globulin measurement (mass/volume) 2019-10-30 06:11:00* Test Item Value Reference Range Interpretation Comments Globulin (test code = 29855-1) 4.0 2.3-3.5 [facility] or plasma albumin/globulin mass tzvag4492-10-38 06:11:00* Test Item Value Reference Range Interpretation Comments Albumin/Globulin Ratio (test code = 1759-0) 0.9 0.8-2.0 [facility] or plasma alkaline phosphatase measurement (enzymatic activity/volume)2019-10-30 06:11:00* Test Item Value Reference Range Interpretation Comments Alkaline Phosphatase (test code = 6768-6) 24 40-150 [facility] HospitalCHEST SINGLE (PORTABLE)2019-10-29 21:50:00 [place] [address] Patient Name: MAYO CA MR #: [id number] : 1995 Age/Sex: 24/M Req #: [id number] Adm Physician: Ordered by: RENY ALEXANDER MD Report #: [id number] Location: ER Room/Bed: Procedure: [id number] DX/CHES T SINGLE (PORTABLE) Exam Date: 10/29/19 Exam Time: 2 118 REPORT STATUS: Signed EXAMIN ATION: CHEST SINGLE (PORTABLE) INDICATION: Fever, short of breath COMPARISON: Same day abdominal CT FINDINGS: TUBES and LINES: None. LUNGS: Normal lung volumes. Subtle patchy haziness in the lo wer lungs. PLEURA: No pleural effusion or pneumothorax. H EART AND MEDIASTINUM: The cardiomediastinal silhouette is unremarkable. BONES AND SOFT TISSUES: No acute osseous lesion. Soft tissues are unremark able. UPPER ABDOMEN: No free air under the diaphragm. IMPRESSION: Subtle patchy haziness in the lower lungs corresponds to multifocal ground glass opacities as seen on concurrent abdominal CT, consistent with multifocal pneumonia. Signed by: Guero Butcher DO on 10/29/2019 9:51 PM Dic tated By: GUERO BUTCHER DO 50 Transcribed By: DANIELA on 10/29/192150 COPY TO: RENY DIAL MD CT ABDOMEN/PELVIS [id number] 21:42:00 [place] [address] Patient Name: MAYO CA MR #: [id number] : 1995 Age/Sex: 24/M Req #: [id number] Adm Physician: KALE VIRK MD Ordered by: RENY ALEXANDER MD Report #: [id number] Location: [facility] Room/Bed: [place] [address] Procedure: [id number] CT/CT A BDOMEN/PELVIS W Exam Date: 10/29/19 Exam Time: 2055 REPORT STATUS: Signed EXAM: CT A bdomen and Pelvis WITH contrast INDICATION: Abdominal pain, fever PARISON: None. TECHNIQUE: Abdomen and pelvis were scanned utilizing a multide tector helical scanner from the lung base to the pubic symphysis after adminis tration of IV contrast. Coronal and sagittal reformations were obtained. Routi ne protocol was performed. Scan was performed when during portal venous phase. IV CONTRAST: 100 mL of Isovue 370 ORAL CONTRAST: None COMPLICATIONS: None RADIATION DOSE: Total DLP: 760 mGy*cm Estimated effective dose: (DLP x 0.015 x size factor) mSv CTDIvol has been reviewed. It is below the limits set by the Radiation Protocol Commit maggie (RPC). Dose modulation, iterative reconstruction, and/or weight based adjustment of the mA/kV was utilized to reduce the radiation dose to as low a s reasonably achievable. FINDINGS: LINES and TUBES: None. LOWE R THORAX: Multifocal ground glass opacities in the lower lungs. HEPATO BILIARY: No focal hepatic lesions. No biliary ductal dilation. GALLBL ADDER: A 2.7 cm calcified gallstone in the gallbladder fundus. No wall thicke blue or hydrops. SPLEEN: No splenomegaly. PANCREAS: No focal masses o r ductal dilatation. ADRENALS: No adrenal nodules KIDNEYS/URETER S: Kidneys enhance symmetrically. No hydronephrosis. No cystic or solid mass lesions. No stones. GI TRACT: No abnormal distention or evidence of bowel obstruction. Small sliding gastric hiatal hernia with mild distal esophageal wall thickening. Appendix is normal. PELVIC ORGANS/BLADDER: Unremarkabl e. LYMPH NODES: No lymphadenopathy. VESSELS: Unremarkable. PERITO NEUM / RETROPERITONEUM: No free air or fluid. BONES: Bilateral L5 inferior pars defects. SOFT TISSUES: Unremarkable. IMPRESSION: 1. Multifocal pneumonia seen in the included lower lungs. 2. Cris lithiasis without evidence of obstructive cholecystitis. 3. Small sliding gastric hiatal hernia with probable mild distal esophagitis. Signed by: Cody Butcher DO on 10/29/2019 9:47 PM Dictated By: GUERO BUTCHER DO El ectronically Signed By: GUERO BUTCHER DO on 10/29/192146 Transcribed By: RAAD SHAFFER on 10/29/192146 COPY TO: RENY ALEXANDER MD Fluoroscopic procedure less than one hour jacdvjeq3737-59-85 20:07:00* Test Item Value Reference Range Interpretation Comments Coronavirus (PCR) (test code = Coronavirus (PCR)) DETECTED NOTD ETECTED SARS-COV2/RT-PCRResults are for the detection of SARS-COV-2 RNA. The SARS-COV-2 RNA is generally detectable in nasopharyngeal swab specimens during the acute ph ase of infection. Positive results are indicitive of active infection with SARS- COV-2; clinical correlation with patient history and other diagnostic informatio n is necessary to determine patient infection status. Positive results do not ru le out bacterial infection or co-infection with other viruses. The agent detecte d may not be the definite cause of the disease.The limit of detection for this a ssay is 250 copies/mLThe SARS-CoV-2 test is a rapid, real-time RT-PCR test inten ded for the qualitative detection of nucleic acid from SARS-CoV-2 in nasopharyng eal swab specimen collected from individuals suspected of COVID-19 by their [facility] provider. This test has not been Food and Drug Administration (FDA) clear ed or approved and has been authorized by FDA under an Emergency Use Authorizati on (EUA). This EUA will be effective until the declaration that circumstances ex ist justifying the authorization of the emergency use of in vitro diagnostic anne t for detection and or diagnosis of COVID-19 is terminated under section 564(b) of the Act, or the the EUA is revoked under 564(g) of the ACT.Testing performed by [address] [address]PRISt[facility] HospitalFluoroscopic procedure less than one hour ezgzukyl8224-63-39 20:07:00* Test Item Value Reference Range Interpretation Comments Coronavirus (PCR) (test code = Coronavirus (PCR)) DETECTED NOTD ETECTED SARS-COV2/RT-PCRResults are for the detection of SARS-COV-2 RNA. The SARS-COV-2 RNA is generally detectable in nasopharyngeal swab specimens during the acute ph ase of infection. Positive results are indicitive of active infection with SARS- COV-2; clinical correlation with patient history and other diagnostic informatio n is necessary to determine patient infection status. Positive results do not ru le out bacterial infection or co-infection with other viruses. The agent detecte d may not be the definite cause of the disease.The limit of detection for this a ssay is 250 copies/mLThe SARS-CoV-2 test is a rapid, real-time RT-PCR test inten ded for the qualitative detection of nucleic acid from SARS-CoV-2 in nasopharyng eal swab specimen collected from individuals suspected of COVID-19 by their [facility] provider. This test has not been Food and Drug Administration (FDA) clear ed or approved and has been authorized by FDA under an Emergency Use Authorizati on (EUA). This EUA will be effective until the declaration that circumstances ex ist justifying the authorization of the emergency use of in vitro diagnostic anne t for detection and or diagnosis of COVID-19 is terminated under section 564(b) of the Act, or the the EUA is revoked under 564(g) of the ACT.Testing performed by [address] [address]YUPSt[address] [facility] HospitalFluoroscopic procedure less than one hour cbhqzstr1552-57-66 20:07:00* Test Item Value Reference Range Interpretation Comments Coronavirus (PCR) (test code = Coronavirus (PCR)) DETECTED NOTD ETECTED SARS-COV2/RT-PCRResults are for the detection of SARS-COV-2 RNA. The SARS-COV-2 RNA is generally detectable in nasopharyngeal swab specimens during the acute ph ase of infection. Positive results are indicitive of active infection with SARS- COV-2; clinical correlation with patient history and other diagnostic informatio n is necessary to determine patient infection status. Positive results do not ru le out bacterial infection or co-infection with other viruses. The agent detecte d may not be the definite cause of the disease.The limit of detection for this a ssay is 250 copies/mLThe SARS-CoV-2 test is a rapid, real-time RT-PCR test inten ded for the qualitative detection of nucleic acid from SARS-CoV-2 in nasopharyng eal swab specimen collected from individuals suspected of COVID-19 by their [facility] provider. This test has not been Food and Drug Administration (FDA) clear ed or approved and has been authorized by FDA under an Emergency Use Authorizati on (EUA). This EUA will be effective until the declaration that circumstances ex ist justifying the authorization of the emergency use of in vitro diagnostic anne t for detection and or diagnosis of COVID-19 is terminated under section 564(b) of the Act, or the the EUA is revoked under 564(g) of the ACT.Testing performed by [facility] [place] [address] [place], [place] [address]Prothrombin time (PT) in platelet poor plasma by coagulation [id number] 19:49:00* Test Item Value Reference Range Interpretation Comments Prothrombin Time (test code = 5902-2) 13.3 11.9-14.5 [facility] HospitalINR in Platelet poor plasma by Coagulation etgsd5103-85-05 19:49:00* Test Item Value Reference Range Interpretation Comments Prothromb Time International Ratio (test code = 6301-6) 0.96 Oral Anticoagulant Therapy INR Values:1. Low Intensity Therapy 1.5 - 2.02 . Moderate Intensity Therapy 2.0 - 3.03. High Intensity Therapy(1) 2.5 - 3. 54. High Intensity Therapy(2) 3.0 - 4.05. Panic Value INR > 5.0 [facility] HospitalActivated partial thromboplastin time (aPTT) in platelet poor plasma by coagulation aqnao6046-46-15 19:49:00* Test Item Value Reference Range Interpretation Comments Activated Partial Thromboplast Time (test code = 06305-6) 28.5 23.8-35.5 [facility] HospitalUrine color vdqbpjzulkrmh0895-23-88 19:49:00* Test Item Value Reference Range Interpretation Comments Urine Color (test code = 5778-6) STRAW YELLOW [facility] HospitalUrine [id number] 19:49:00* Test Item Value Reference Range Interpretation Comments Urine Clarity (test code = 05931-0) SL CLOUDY CLEAR [facility] Campuspecific gravity of Urine by Test strip 2019-10-29 19:49:00* Test Item Value Reference Range Interpretation Comments Urine Specific [place] (test code = 5811-5) 1.025 1.010-1.[address] [facility] HospitalUrine pH measurement by automated test zotfh9703-54-33 19:49:00* Test Item Value Reference Range Interpretation Comments Urine pH (test code = 88399-3) 7 5-7 [facility] HospitalUrine leukocyte esterase detection by nkbhhyqk6257-76-35 19:49:00* Test Item Value Reference Range Interpretation Comments Urine Leukocyte Esterase (test code = 5799-2) NEGATIVE NEGATIVE [facility] HospitalUrine nitrite dnohhpykg9017-39-40 19:49:00* Test Item Value Reference Range Interpretation Comments Urine Nitrite (test code = 34971-0) NEGATIVE NEGATIVE [facility] HospitalUrine protein measurement by test strip (mass/volume)2019-10-29 19:49:00* Test Item Value Reference Range Interpretation Comments Urine Protein (test code = 5804-0) 1+ NEGATIVE [facility] HospitalUrine glucose zkdppdbnm8981-40-04 19:49:00* Test Item Value Reference Range Interpretation Comments Urine Glucose (UA) (test code = 2349-9) NEGATIVE NEGATIVE [facility] HospitalUrine ketones detection by automated test lfiwf1753-58-29 19:49:00* Test Item Value Reference Range Interpretation Comments Urine Ketones (test code = 60916-7) NEGATIVE NEGATIVE [facility] HospitalUrine urobilinogen measurement by test strip (mass/volume)2019-10-29 19:49:00* Test Item Value Reference Range Interpretation Comments Urine Urobilinogen (test code = 02726-2) 1 0.2-1 [facility] HospitalUrine total bilirubin measurement (mass/volume)2019-10-29 19:49:00* Test Item Value Reference Range Interpretation Comments Urine Bilirubin (test code = 1978-6) SMALL NEGATIVE [facility] HospitalUrine erythrocytes qlnxujjco7367-59-91 19:49:00* Test Item Value Reference Range Interpretation Comments Urine Blood (test code = 09312-4) NEGATIVE NEGATIVE [facility] HospitalAutomated urine sediment leukocyte count by microscopy (number/high power field)2019-10-29 19:49:00* Test Item Value Reference Range Interpretation Comments Urine WBC (test code = 5821-4) 0-5 0-5 [facility] HospitalErythrocytes detection in urine sediment by light hbjarhxkoy1913-50-73 19:49:00* Test Item Value Reference Range Interpretation Comments Urine RBC (test code = 03165-0) 0-5 0-5 [facility] HospitalBacteria detection in urine sediment by light vtqaveqxfx1583-76-18 19:49:00* Test Item Value Reference Range Interpretation Comments Urine Bacteria (test code = 11214-6) FEW NONE [facility] HospitalEpithelial cells detection in urine sediment by light lplfevkmua2334-32-65 19:49:00* Test Item Value Reference Range Interpretation Comments Urine Epithelial Cells (test code = 83920-6) FEW NONE [facility] HospitalFluoroscopic procedure less than one hour gythbkwy5230-51-02 19:49:00* Test Item Value Reference Range Interpretation Comments Lactic Acid Level (test code = Lactic Acid Level) 1.7 0.5- 2.0 [facility] HospitalBlood coyaztn5529-23-64 19:49:00* Test Item Value Reference Range Interpretation Comments Blood Culture (test code = 24065938) NO GROWTH AFTER [address] [facility] HospitalProthrombin time (PT) in platelet poor plasma by coagulation swzoo7279-93-80 19:49:00* Test Item Value Reference Range Interpretation Comments Prothrombin Time (test code = 5902-2) 13.3 11.9-14.5 [facility] HospitalINR in Platelet poor plasma by Coagulation znrbe6042-11-06 19:49:00* Test Item Value Reference Range Interpretation Comments Prothromb Time International Ratio (test code = 6301-6) 0.96 Oral Anticoagulant Therapy INR Values:1. Low Intensity Therapy 1.5 - 2.02 . Moderate Intensity Therapy 2.0 - 3.03. High Intensity Therapy(1) 2.5 - 3. 54. High Intensity Therapy(2) 3.0 - 4.05. Panic Value INR > 5.0 [facility] HospitalActivated partial thromboplastin time (aPTT) in platelet poor plasma by coagulation ulaxb5088-15-28 19:49:00* Test Item Value Reference Range Interpretation Comments Activated Partial Thromboplast Time (test code = 36489-8) 28.5 23.8-35.5 [facility] HospitalUrine color fdqxfttdwqjgl6621-54-15 19:49:00* Test Item Value Reference Range Interpretation Comments Urine Color (test code = 5778-6) STRAW YELLOW [facility] HospitalUrine rvrhyog1538-93-26 19:49:00* Test Item Value Reference Range Interpretation Comments Urine Clarity (test code = 77678-4) SL CLOUDY CLEAR [facility] Campuspecific gravity of Urine by Test strip 2019-10-29 19:49:00* Test Item Value Reference Range Interpretation Comments Urine Specific [place] (test code = 5811-5) 1.025 1.010-1.[address] [facility] HospitalUrine pH measurement by automated test jplla5091-99-61 19:49:00* Test Item Value Reference Range Interpretation Comments Urine pH (test code = 42262-9) 7 5-7 [facility] HospitalUrine leukocyte esterase detection by onjzkhov9058-39-80 19:49:00* Test Item Value Reference Range Interpretation Comments Urine Leukocyte Esterase (test code = 5799-2) NEGATIVE NEGATIVE [facility] HospitalUrine nitrite vwdfahkcm8682-39-82 19:49:00* Test Item Value Reference Range Interpretation Comments Urine Nitrite (test code = 20339-3) NEGATIVE NEGATIVE [facility] HospitalUrine protein measurement by test strip (mass/volume)2019-10-29 19:49:00* Test Item Value Reference Range Interpretation Comments Urine Protein (test code = 5804-0) 1+ NEGATIVE [facility] HospitalUrine glucose xbtsdhqwl1202-33-83 19:49:00* Test Item Value Reference Range Interpretation Comments Urine Glucose (UA) (test code = 2349-9) NEGATIVE NEGATIVE [facility] HospitalUrine ketones detection by automated test miizt2557-15-48 19:49:00* Test Item Value Reference Range Interpretation Comments Urine Ketones (test code = 05761-1) NEGATIVE NEGATIVE [facility] HospitalUrine urobilinogen measurement by test strip (mass/volume)2019-10-29 19:49:00* Test Item Value Reference Range Interpretation Comments Urine Urobilinogen (test code = 18009-5) 1 0.2-1 [facility] HospitalUrine total bilirubin measurement (mass/volume)2019-10-29 19:49:00* Test Item Value Reference Range Interpretation Comments Urine Bilirubin (test code = 1978-6) SMALL NEGATIVE [facility] HospitalUrine erythrocytes lpzibgpiq5068-30-99 19:49:00* Test Item Value Reference Range Interpretation Comments Urine Blood (test code = 49664-8) NEGATIVE NEGATIVE [facility] HospitalAutomated urine sediment leukocyte count by microscopy (number/high power field)2019-10-29 19:49:00* Test Item Value Reference Range Interpretation Comments Urine WBC (test code = 5821-4) 0-5 0-5 [facility] HospitalErythrocytes detection in urine sediment by light rnyqhzyucn6107-22-70 19:49:00* Test Item Value Reference Range Interpretation Comments Urine RBC (test code = 40420-7) 0-5 0-5 [facility] HospitalBacteria detection in urine sediment by light kxxludegoa3279-19-71 19:49:00* Test Item Value Reference Range Interpretation Comments Urine Bacteria (test code = 73136-3) FEW NONE [facility] HospitalEpithelial cells detection in urine sediment by light ezcenqctot8632-14-63 19:49:00* Test Item Value Reference Range Interpretation Comments Urine Epithelial Cells (test code = 20123-9) FEW NONE [facility] HospitalFluoroscopic procedure less than one hour idpbvumi1361-97-07 19:49:00* Test Item Value Reference Range Interpretation Comments Lactic Acid Level (test code = Lactic Acid Level) 1.7 0.5- 2.0 [facility] HospitalBlood fuxrwvy3219-81-49 19:49:00* Test Item Value Reference Range Interpretation Comments Blood Culture (test code = 19850933) NO GROWTH AFTER [address] [facility] HospitalFluoroscopic procedure less than one hour kaoqtjwj5870-83-88 19:49:00* Test Item Value Reference Range Interpretation Comments Lactic Acid Level (test code = Lactic Acid Level) 1.7 0.5- 2.0 [facility] HospitalBlood bnmodbi3732-22-42 19:49:00* Test Item Value Reference Range Interpretation Comments Blood Culture (test code = 83798647) NO GROWTH AFTER 5 DAYS, FINAL REPORT [facility] HospitalURINALYSIS ASVOALDZ4360-77-87 16:28:00* Test Item Value Reference Range Interpretation Comments UA COLOR (test code = COLU) YELLOW YELLOW UA APPEARANCE (test code = APPU) CLEAR CLEAR UA GLUCOSE DIPSTICK (test code = DGLUU) NEGATIVE mg/dL NEGATIVE UA BILIRUBIN DIPSTICK (test code = BILU) NEGATIVE mg/dL NEGATIVE UA KETONE DIPSTICK (test code = KETU) NEGATIVE mg/dL NEGATIVE UA SPECIFIC GRAVITY (test code = SGU) 1.032 1.001-1.035 UA BLOOD DIPSTICK (test code = KYLE) Negative mg/dL NEGATIVE UA PH DIPSTICK (test code = KOBE) 5.5 5.0-8.0 UA PROTEIN DIPSTICK (test code = PROU) 20 (Trace) mg/dL NEGATIVE A UA UROBILINIOGEN DIPSTICK (test code = URO) Normal mg/dL NEGATIVE UA NITRITE DIPSTICK (test code = RICCI) NEGATIVE NEGATIVE UA LEUKOCYTE ESTERASE W REFLEX (test code = LEUUR) NEGATIVE Jodi/uL NEGATIVE UA WBC (test code = WBCU) 0-5 per HPF 0-5 UA RBC (test code = RBCU) 0-3 per HPF 0-5 UA EPITHELIAL CELLS (test code = EPIU) Few (2-5/hpf) per HPF Few UA BACTERIA (test code = BACU) FEW per HPF NONE Urine Source? Clean CatchURINALYSIS [id number] 16:22:00* Test Item Value Reference Range Interpretation Comments UA COLOR (test code = COLU) YELLOW YELLOW UA APPEARANCE (test code = APPU) CLEAR CLEAR UA GLUCOSE DIPSTICK (test code = DGLUU) NEGATIVE mg/dL NEGATIVE UA BILIRUBIN DIPSTICK (test code = BILU) NEGATIVE mg/dL NEGATIVE UA KETONE DIPSTICK (test code = KETU) NEGATIVE mg/dL NEGATIVE UA SPECIFIC GRAVITY (test code = SGU) 1.032 1.001-1.035 UA BLOOD DIPSTICK (test code = KYLE) Negative mg/dL NEGATIVE UA PH DIPSTICK (test code = KOBE) 5.5 5.0-8.0 UA PROTEIN DIPSTICK (test code = PROU) 20 (Trace) mg/dL NEGATIVE A UA UROBILINIOGEN DIPSTICK (test code = URO) Normal mg/dL NEGATIVE UA NITRITE DIPSTICK (test code = RICCI) NEGATIVE NEGATIVE UA LEUKOCYTE ESTERASE W REFLEX (test code = LEUUR) NEGATIVE Jodi/uL NEGATIVE UA WBC (test code = WBCU) per HPF 0-5 UA RBC (test code = RBCU) per HPF 0-5 UA EPITHELIAL CELLS (test code = EPIU) per HPF Few UA BACTERIA (test code = BACU) per HPF NONE Urine Source? Clean CatchBASIC METABOLIC [id number] 16:15:00* Test Item Value Reference Range Interpretation Comments SODIUM (test code = NA) 141 mmol/L 136-145 N POTASSIUM (test code = K) 4.3 mmol/L 3.5-5.1 N CHLORIDE (test code = CL) 108.0 mmol/L 98-107 H CARBON DIOXIDE (test code = CO2) 28.0 mmol/L 21-32 N ANION GAP (test code = GAP) 9.3 10-20 L GLUCOSE (test code = GLU) 85 mg/dL 74-106 N BLOOD UREA NITROGEN (test code = BUN) 12 mg/dL 7-18 N GLOMERULAR FILTRATION RATE (test code = GFR) > 60 mL/min >=60 Estimated GFR by using Modified MDRD formula.Chronic kidney disease is defined as either kidney damageor GFR <60 mL/min/1.73 m2 for >3 months. CREATININE (test code = CREAT) 0.90 mg/dL 0.7-1.3 N BUN/CREATININE RATIO (test code = BUN/CREA) 13.1 10-20 N CALCIUM (test code = CA) 9.2 mg/dL 8.5-10.1 N [id number] 16:15:00* Test Item Value Reference Range Interpretation Comments TROPONIN-I (test code = TROPI) <0.015 ng/mL 0-0.045 N BASIC METABOLIC [id number] 16:06:00* Test Item Value Reference Range Interpretation Comments SODIUM (test code = NA) 141 mmol/L 136-145 N POTASSIUM (test code = K) 4.3 mmol/L 3.5-5.1 N CHLORIDE (test code = CL) 108.0 mmol/L 98-107 H CARBON DIOXIDE (test code = CO2) mmol/L 21-32 ANION GAP (test code = GAP) 10-20 GLUCOSE (test code = GLU) mg/dL 74-106 BLOOD UREA NITROGEN (test code = BUN) mg/dL 7-18 GLOMERULAR FILTRATION RATE (test code = GFR) mL/min >=60 CREATININE (test code = CREAT) mg/dL 0.7-1.3 BUN/CREATININE RATIO (test code = BUN/CREA) 10-20 CALCIUM (test code = CA) mg/dL 8.5-10.1 [id number] 16:06:00* Test Item Value Reference Range Interpretation Comments TROPONIN-I (test code = TROPI) ng/mL 0-0.045 CBC W/O [id number] 15:50:00* Test Item Value Reference Range Interpretation Comments WHITE BLOOD CELL (test code = WBC) 4.1 K/mm3 4.5-12.5 L RED BLOOD CELL (test code = RBC) 5.38 mill/mm3 4.0-5.8 N HEMOGLOBIN (test code = HGB) 15.5 gram/dL 13.0-17.5 N HEMATOCRIT (test code = HCT) 46.1 % 42.0-52.0 N MEAN CELL VOLUME (test code = MCV) 85.7 fL 80-98 N MEAN CELL HGB (test code = MCH) 28.8 picogram 27.0-33.0 N MEAN CELL HGB CONCETRATION (test code = MCHC) 33.6 gram/dL 33.0-36. 0 N RED CELL DISTRIBUTION WIDTH (test code = RDW) 12.6 % 11.6-16. 2 N PLATELET COUNT (test code = PLT) 212 K/mm3 150-450 N MEAN PLATELET VOLUME (test code = MPV) 10.6 fL 6.7-11.0 N
== END 2019-12-11 09:52 | disposition home or self-care (01) ==
LOC: ER 08:27
DX: K80.80 Other cholelithiasis without obstruction (principal); R10.11 Right upper quadrant pain; F17.210 Nicotine dependence, cigarettes, uncomplicated
CPT/HCPCS: 36415; 80053; 80307; 81001; 82150; 83690; 85025; 85610; 85730; 99284; C9113; J0500; J2405; J7030

== ENCOUNTER 2019-12-20 06:22 | Emergency (ER) | payer SELFPAY ==
[~2019-12-20] VITALS: Ht 167.6 cm; Wt 95.3 kg
[2019-12-20] MEDS ORDERED: SODIUM CHLORIDE 0.9% 1000ML 1,000 ML IV STA (06:48)
[2019-12-20] MEDS ORDERED: ONDANSETRON HCL INJ 2MG/ML 2ML 2 MG/ML VIAL IV STA (06:48)
[2019-12-20] MEDS ORDERED: KETOROLAC TROMETHAMINE 30 MG/ML VIAL IV STA (06:48)
--- NOTE | 2019-12-20 06:50 | Emergency Department Note ---
History of Present Illnes History of Present Illness Chief Complaint: Abdominal Complaints History of Present Illness This is a 24 year old male with RUQ pain , R flank pain 3 days with n/v and neg fevers . Patient seen in the ED 4 weeks prior for same issue and was incidentally found to have the COVID-19 URI. Patient was admitted and discharged with subsequent ER visit for hypoxia. Patient was transferred to [facility] and was ultimately discharged. Since hospitalization patient states that he has tested neg for the COVID-19 virus but admits to not following up as outpatient for treatment of gallstones. Historian: Patient Arrival Mode: Car Onset (how long ago): day(s) Radiation: Reports abdomen Severity: moderate Onset quality: gradual Duration (how long): day(s) (3) Timing of current episode: constant Progression: worsening Chronicity: recurrent Context: Reports recent illness Relieving factors: none Exacerbating factors: none Associated symptoms: Reports nausea/vomiting; Denies fever/chills Treatments prior to arrival: none (BELLA SAMSON DO) Past Medical/Family History Physician Review I have reviewed the patient's past medical and family history. Any updates have been documented here. (BELLA SAMSON DO) Past Medical History Recent Fever: No Clinical Suspicion of Infectio: No New/Unexplained Change in Ment: No Past Medical History: None, TIA Other Medical History: GALLSTONES Past Surgical History: None (BELLA SAMSON DO) Social History Smoking Cessation: Never Smoker Alcohol Use: None Any Illegal Drug Use: No (BELLA SAMSON DO) Other Last Tetanus: UTD (BELLA SAMSON DO) Review of Systems Review of Systems Constitutional: Denies fever EENTM: Reports no symptoms Cardiovascular: Reports no symptoms Respiratory: Reports no symptoms Gastrointestinal: Reports abdominal pain, Reports nausea, Reports vomiting Genitourinary: Reports no symptoms Musculoskeletal: Reports no symptoms Integumentary: Reports no symptoms Neurological: Reports no symptoms Psychological: Reports no symptoms Endocrine: Reports no symptoms Hematological/Lymphatic: Reports no symptoms (BELLA SAMSON DO) Physical Exam Related Data Allergies: Coded Allergies: No Known Allergies (Unverified , 10/29/19) Vital signs reviewed: Yes (BELLA SAMSON DO) Physical Exam CONSTITUTIONAL Constitutional: Present well-developed, Present well-nourished HENT HENT: Present normocephalic, Present atraumatic, Present oropharynx clear/moist, Present nose normal HENT L/R: Present left ext ear normal, Present right ext ear normal EYES Eyes: Reports PERRL, Reports conjunctivae normal NECK Neck: Present ROM normal PULMONARY Pulmonary: Present effort normal, Present breath sounds normal CARDIOVASCULAR Cardiovascular: Present regular rhythm, Present heart sounds normal, Present capillary refill normal, Present normal rate GASTROINTESTINAL Abdominal: Present soft, Present tender (RUQ) GENITOURINARY Genitourinary: Present exam deferred SKIN Skin: Present warm, Present dry MUSCULOSKELETAL Musculoskeletal: Present ROM normal NEUROLOGICAL Neurological: Present alert, Present oriented x 3, Present no gross motor or sensory deficits PSYCHOLOGICAL Psychological: Present mood/affect normal, Present judgement normal (BELLA SAMSON DO) Results Laboratory Lab results reviewed: Yes (BELLA SAMSON DO) Imaging Imaging results reviewed: Yes Impressions [place] [address] Patient Name: MAYO CA MR #: [id number] : 1995 Age/Sex: 24/M Req #: [id number] [facility] Physician: Ordered by: BELLA SAMSON DO Report #: [id number] Location: ER Room/Bed: Procedure: [id number] CT/CT ABDOMEN/PELVIS W Exam Date: 12/20/19 Exam Time: 0735 REPORT STATUS: Signed CT of the abdomen and pelvis, with contrast. History: Right upper quadrant pain. Comparison: CT abdomen/pelvis with contrast from 10/29/2019. Technique: Multidetector CT scanning of the abdomen and pelvis was performed from the level of the lung bases to the inferior pubic rami after intravenous administration of contrast. Coronal and sagittal multiplanar reformations were obtained. RADIATION DOSE: Total DLP: 675.94 mGy*cm Dose modulation, iterative reconstruction, and/or weight based adjustment of the mA/kV was utilized to reduce the radiation dose to as low as reasonably achievable. FINDINGS: The previously visualized groundglass opacities within the lung bases have resolved. The imaged portion of the heart demonstrates no significant abnormalities. The liver is normal in size but appears diffusely decreased in attenuation in comparison 2 the spleen which can be seen in the setting of fatty infiltration. Again identified is a calcified gallstone within the lumen of the gallbladder. There is no evidence for gallbladder wall thickening or pericholecystic fluid. There is no intra or extrahepatic biliary ductal dilatation. The stomach, spleen, pancreas, and bilateral adrenal glands are unremarkable. The kidneys are normal in size and location and enhance symmetrically. Probable extrarenal pelvis noted on the right. There is no evidence for nephrolithiasis or hydronephrosis. No ureteral stone or dilatation is appreciated. The partially distended urinary bladder demonstrates no significant abnormalities. The prostate is unremarkable. The abdominal aorta is normal course and caliber. The IVC is unremarkable. Please note evaluation the bowel is limited without the use of enteric contrast material. The visualized loops of small and large bowel demonstrate no evidence of obstruction or inflammation. The appendix is visualized and appears unremarkable. There is no ascites or intraperitoneal free air. No abnormally enlarged lymph nodes are identified within the abdomen or pelvis. Again noted are bilateral L5 pars interarticularis defects. The osseous structures otherwise demonstrate no evidence for acute fracture or destructive process. The extraperitoneal soft tissues are unremarkable. IMPRESSION: Interval resolution of previously visualized ground glass opacities within the lung bases. Cholelithiasis without CT evidence for acute cholecystitis. No other acute abdominopelvic process identified. Signed by: Dr. Chirag Carranza MD on 12/20/2019 8:53 AM Dictated By: CHIRAG CARRANZA MD 2 Transcribed By: DANIELA on 12/20/19852 COPY TO: BELLA SAMSON DO~ (BELLA SAMSON DO) Assessment & Plan Medical Decision Making MDM 24 yom with recurrent R flank pain, CBC, CMP, and CTS of abd/pelvis ordered to evaluate for abdominal abscess, appendicitis, biliary pathology, pancreatitis, perforated viscus. (BELLA SAMSON DO) MDM 24-year-old male arrives to the ED with right upper quadrant abdominal pain, CT findings consistent cholelithiasis. Patient's pain well controlled emergency department. Patient stable for discharge home with outpatient general surgery follow-up. Spoke to patient length about diet changes to help alleviate symptoms, patient expressed understanding stable for discharge home. (MARIANO TIM DO) Assessment & Plan Final Impression: (1) Cholelithiasis (2) Gallstones (MARIANO TIM DO) Depart Disposition: HOME, SELF-prison Meds Active Scripts Tramadol Hcl (ULTRAM) 50 Mg Tablet, 50 MG PO Q6HR PRN for Mild Pain (1-3) or Fever>100.8, #14 TAB Prov:MARIANO TIM DO 12/20/19 Acetaminophen (Tylenol) 325 Mg Capsule, 650 MG PO Q6H for 21 Days, #90 CAP 0 Refills Prov:AURELIA LING NP 10/30/19 Azithromycin (Z-GENNY) 250 Mg Tablet, 250 MG PO UD for 3 Days, #1 UDPKT 0 Refills Z-Pack Prov:AURELIA LING NP 10/30/19 BELLA SAMSON DO Dec 20, 2019 06:50 MARIANO TIM DO Dec 20, 2019 10:17
--- OUTSIDE RECORDS SUMMARY | 2019-12-20 07:23 | XMS REPORT | Continuity of Care Document ---
Author Author [facility] Organization [facility] Address [address] [place] [address] Phone Unavailable Care Team Providers Care Internet Sales Associate Name Role Phone NO, PCP [...] Clinician Comments Source Viral pneumonia Problem Active [facility] Fever Problem Active [facility] Multiple gallstones Problem Active [facility] Upper respiratory tract infection due to severe acute respiratory syndrome coronavirus 2 (SARS-CoV-2) Problem Active [facility] Hypoxia Problem Active [facility] Allergies, Adverse Reactions, Alerts Allergy Name Allergy Type Status Severity Reaction(s) Onset Date Inacti ve Date Treating Clinician Comments Source No Known Allergies DA Active U 2019-11-10 00:00:00 [facility] No Known Allergies DA Active U 2019-10-28 00:00:00 [facility] Social History Social Habit Start Date Stop Date Quantity Comments Source Sex Assigned At 1995 00:00:00 1995 00:00:00 Male [facility] Medications Ordered Medication Name Filled Medication Name Start Date Stop Da te Current Medication? Ordering Clinician Indication Dosage Frequency Signature (SIG) Comments Components Source Acetaminophen (Tylenol) 325 Mg CAPSULE Acetaminophen (Tyleno l) 325 Mg CAPSULE 2019-10-30 20:02:00 Yes 650 Every 6 Hours [facility] Azithromycin (Z-Silver) 250 Mg TABLET Azithromycin (Z-Silver) 250 Mg TABLET 2019-10-30 20:00:00 Yes 250 Use As Directed [facility] Vital Signs Vital Name Observation Time Observation Value Comments Source Body Temperature 2019-12-11 09:40:00 97.5 [degF] [facility] Weight 2019-12-11 08:42:00 210 [lb_av] [facility] BMI (Body Mass Index) 2019-12-11 08:42:00 33.9 kg/m2 [facility] Body Temperature 2019-11-01 08:30:00 99.0 [degF] [facility] Weight 2019-11-01 04:53:00 199 [lb_av] [facility] BMI (Body Mass Index) 2019-11-01 04:53:00 32.1 kg/m2 [facility] Body Temperature 2019-10-30 20:00:00 100.9 [degF] [facility] BMI (Body Mass Index) 2019-10-30 05:12:00 32.2 kg/m2 [facility] Weight 2019-10-30 01:30:00 199.25 [lb_av] [facility] Procedures Procedure Date / Time Performed Performing Clinician Sourc e EMERGENCY DEPT VISIT 2019-11-01 00:00:00 [facility] Computed tomography of abdomen and pelvis with contrast 00:00:00 [facility] Plan of Care Planned Activity Planned Date Details Comments Source Instructions Cholelithiasis [facility] Encounters Start Date/Time End Date/Time Encounter Type Admission Type Attendi [facility] Care Department Encounter ID Source 2019-12-11 08:27:00 2019-12-11 09:52:00 Departed Emergency Room [facility] [id number] [facility] 2019-11-21 00:00:00 2019-11-21 00:00:00 Orders Only D octor Unassigned, [place] [facility] [id number] 2019-11-06 00:00:00 2019-11-06 00:00:00 Transition of Care Anju Ortiz [id number] 2019-11-01 10:35:00 2019-11-03 16:54:00 Hospital Encounter Deniz Hooks [facility] [id number] 2019-11-01 04:52:00 2019-11-01 09:19:00 Departed Emergency Room 1 CHAPIN BELLA [facility] [id number] [facility] 2019-10-29 22:42:00 2019-10-30 21:45:00 Discharged Inpatient (obs) 1 KALE VIRK [facility] [id number] [facility] 2019-08-03 23:33:00 2019-08-03 23:33:00 Emergency [facility] [id number] [facility] 2018-07-31 21:15:00 2018-07-31 21:15:00 Emergency E [facility] 7501 [facility] 2018-05-05 08:08:00 2018-05-05 08:08:00 Emergency E [facility] 7500 [facility] Results Test Description Test Time Test Comments Results Result Comments Source Blood leukocytes automated count (number/volume) 2019-12-11 08:37:00 Test Item White Blood Count (test code = 6690-2) 7.82 4.8-10.8 [facility] automated count (number/volume)2019-12-11 08:37:00* Test Item Value Reference Range Interpretation Comments Red Blood Count (test code = 789-8) 5.31 4.3-5.7 [facility] Center[facility] hemoglobin measurement (moles/volume)2019-12-11 08:37:00* Test Item Value Reference Range Interpretation Comments Hemoglobin (test code = 87360-5) 14.8 14.0-18.0 [facility] CenterAutomated blood hematocrit (volume fraction)2019-12-11 08:37:00* Test Item Value Reference Range Interpretation Comments Hematocrit (test code = 4544-3) 45.0 38.2-49.6 [facility] CenterAutomated erythrocyte mean corpuscular atytfh2788-55-36 08:37:00* Test Item Value Reference Range Interpretation Comments Mean Corpuscular Volume (test code = 787-2) 84.7 81-99 [facility] CenterAutomated erythrocyte mean corpuscular hemoglobin (mass per erythrocyte)2019-12-11 08:37:00* Test Item Value Reference Range Interpretation Comments Mean Corpuscular Hemoglobin (test code = 785-6) 27.9 28-32 [facility] CenterAutomated erythrocyte mean corpuscular hemoglobin concentration measurement (mass/volume)2019-12-11 08:37:00* Test Item Value Reference Range Interpretation Comments Mean Corpuscular Hemoglobin Concent (test code = 786-4) 32.9 31-35 [facility] CenterRDW ExaPc-Mvx1445-37-28 08:37:00* Test Item Value Reference Range Interpretation Comments Red Cell Distribution Width (test code = 49304-2) 13.7 11.7 -14.4 [facility] CenterAutomated blood platelet count (count/volume)2019-12-11 08:37:00* Test Item Value Reference Range Interpretation Comments Platelet Count (test code = 777-3) 297 140-360 [facility] CenterAutomated blood segmented neutrophil count as percentage of total hrpuwuquuz2021-67-43 08:37:00* Test Item Value Reference Range Interpretation Comments Neutrophils (%) (Auto) (test code = 50628-6) 54.8 38.7-80.0 [facility] CenterAutomated blood lymphocyte count as percentage ot total oaymlgwyav5948-81-93 08:37:00* Test Item Value Reference Range Interpretation Comments Lymphocytes (%) (Auto) (test code = 736-9) 35.4 18.0-39.1 [facility] CenterAutomated blood monocyte count as percentage of total njutrbanlz0191-42-92 08:37:00* Test Item Value Reference Range Interpretation Comments Monocytes (%) (Auto) (test code = 5905-5) 6.9 4.4-11.3 [facility] CenterAutomated blood eosinophil count as percentage of total cqribnrjya7037-58-90 08:37:00* Test Item Value Reference Range Interpretation Comments Eosinophils (%) (Auto) (test code = 713-8) 1.8 0.0-6.0 [facility] CenterAutomated blood basophil count as percentage of total flccksynqm4610-37-70 08:37:00* Test Item Value Reference Range Interpretation Comments Basophils (%) (Auto) (test code = 706-2) 0.5 0.0-1.0 [facility] CenterFluoroscopic procedure less than one hour yrsfwqxl3820-53-36 08:37:00* Test Item Value Reference Range Interpretation Comments IM GRANULOCYTES % (test code = IM GRANULOCYTES %) 0.6 0.0- 1.0 [facility] CenterAutomated blood neutrophil count 2019-12-11 08:37:00* Test Item Value Reference Range Interpretation Comments Neutrophils # (Auto) (test code = 751-8) 4.3 2.1-6.9 [facility] CenterBlood lymphocytes count (number/volume) 2019-12-11 08:37:00* Test Item Value Reference Range Interpretation Comments Lymphocytes # (Auto) (test code = 71300-0) 2.8 1.0-3.2 [facility] CenterBlood monocytes automated count (number/volume)2019-12-11 08:37:00* Test Item Value Reference Range Interpretation Comments Monocytes # (Auto) (test code = 742-7) 0.5 0.2-0.8 [facility] CenterAutomated blood eosinophil count 2019-12-11 08:37:00* Test Item Value Reference Range Interpretation Comments Eosinophils # (Auto) (test code = 711-2) 0.1 0.0-0.4 [facility] CenterAutomated blood basophil count (count/volume)2019-12-11 08:37:00* Test Item Value Reference Range Interpretation Comments Basophils # (Auto) (test code = 704-7) 0.0 0.0-0.1 [facility] CenterFluoroscopic procedure less than one hour xghiqoag3880-71-86 08:37:00* Test Item Value Reference Range Interpretation Comments Absolute Immature Granulocyte (auto (anne t code = Absolute Immature Granulocyte (auto) 0.05 0-0.1 [facility] CenterProthrombin time (PT) in platelet poor plasma by coagulation plwbd7370-74-88 08:37:00* Test Item Value Reference Range Interpretation Comments Prothrombin Time (test code = 5902-2) 12.3 11.9-14.5 [facility] CenterINR in Platelet poor plasma by Coagulation yephf8015-18-89 08:37:00* Test Item Value Reference Range Interpretation Comments Prothromb Time International Ratio (test code = 6301-6) 0.87 Oral Anticoagulant Therapy INR Values:1. Low Intensity Therapy 1.5 - 2.02 . Moderate Intensity Therapy 2.0 - 3.03. High Intensity Therapy(1) 2.5 - 3. 54. High Intensity Therapy(2) 3.0 - 4.05. Panic Value INR > 5.0 [facility] CenterActivated partial thromboplastin time (aPTT) in platelet poor plasma by coagulation ucikq8625-82-95 08:37:00* Test Item Value Reference Range Interpretation Comments Activated Partial Thromboplast Time (test code = 94475-1) 26.4 23.8-35.5 [facility] CenterUrine color fnvlbocrixgbm7796-81-53 08:37:00* Test Item Value Reference Range Interpretation Comments Urine Color (test code = 5778-6) YELLOW YELLOW [facility] CenterUrine ussksfq8736-64-12 08:37:00* Test Item Value Reference Range Interpretation Comments Urine Clarity (test code = 97304-3) CLEAR CLEAR [facility] Hospitalpecific gravity of Urine by Test strip 2019-12-11 08:37:00* Test Item Value Reference Range Interpretation Comments Urine Specific [place] (test code = 5811-5) >=1.030 1.010-1.02 5 [facility] CenterUrine pH measurement by automated test mzhra4901-21-09 08:37:00* Test Item Value Reference Range Interpretation Comments Urine pH (test code = 16677-4) 5.5 5-7 [facility] CenterUrine leukocyte esterase detection by uyzyyrut5336-43-45 08:37:00* Test Item Value Reference Range Interpretation Comments Urine Leukocyte Esterase (test code = 5799-2) NEGATIVE NEGATIVE [facility] CenterUrine nitrite kqlrktxpj1322-64-68 08:37:00* Test Item Value Reference Range Interpretation Comments Urine Nitrite (test code = 00787-4) NEGATIVE NEGATIVE [facility] CenterUrine protein measurement by test strip (mass/volume)2019-12-11 08:37:00* Test Item Value Reference Range Interpretation Comments Urine Protein (test code = 5804-0) NEGATIVE NEGATIVE [facility] CenterUrine glucose kjzttbkcu0900-58-07 08:37:00* Test Item Value Reference Range Interpretation Comments Urine Glucose (UA) (test code = 2349-9) NEGATIVE NEGATIVE [facility] CenterUrine ketones detection by automated test utrfg7428-90-59 08:37:00* Test Item Value Reference Range Interpretation Comments Urine Ketones (test code = 65873-0) NEGATIVE NEGATIVE [facility] CenterUrine opiates screening hrnt5365-98-78 08:37:00* Test Item Value Reference Range Interpretation Comments Urine Opiates Screen (test code = 71042-0) NEGATIVE NEGATIVE ALL TESTS PERFORMED MANUALLY ON BIORAD TOX/SEE TESTWadley Regional Medical CenterBarbiturates screen, ioymh6591-23-12 08:37:00* Test Item Value Reference Range Interpretation Comments Urine Barbiturates Screen (test code = 048256624) NEGATIVE NEGA TIVE [facility] CenterUrine phencyclidine detection by screening nvbozt4219-11-24 08:37:00* Test Item Value Reference Range Interpretation Comments Urine Phencyclidine Screen (test code = 71507-1) NEGATIVE NEGAT JUANIS [facility] CenterUrine amphetamines detection by screen method > 1000 ng/wC0654-95-10 08:37:00* Test Item Value Reference Range Interpretation Comments Urine Amphetamines Screen (test code = 37901-9) NEGATIVE NEGATI VE [facility] CenterFluoroscopic procedure less than one hour moijrpac1002-77-50 08:37:00* Test Item Value Reference Range Interpretation Comments Urine Methamphetamines Screen (test code = Urine Metha mphetamines Screen) NEGATIVE NEGATIVE [facility] CenterUrine benzodiazepines detection by screening antuzs7528-10-99 08:37:00* Test Item Value Reference Range Interpretation Comments Urine Benzodiazepines Screen (test code = 64264-2) NEGATIVE NEG ATIVE [facility] CenterUrine cocaine measurement (mass/volume) 2019-12-11 08:37:00* Test Item Value Reference Range Interpretation Comments Urine Cocaine Screen (test code = 3398-5) NEGATIVE NEGATIVE [facility] CenterUrine cannabinoids detection by screening kefudl4043-78-01 08:37:00* Test Item Value Reference Range Interpretation Comments Urine Cannabinoids Screen (test code = 37144-0) NEGATIVE NEGATI VE THESE RESULTS ARE FOR MEDICAL TREATMENT ONLYTHIS REPORT CONTAINS UNCONFIR MED SCREENING RESULTS*POSITIVE RESULTS WILL BE CONFIRMED BY REFERENCE LAB UPON R EQUEST CUT-OFFDRUG CLASS CONCENTRATION ng/mLAmphetamines 1000Methamphetamines 1000Cocaine 300Opiate 300Phencyc lidine 25Cannabinoid 50Barbiturates 300Benzodiazepine 300Methadone 300[facility] HospitalUrine methadone xlvpxa7072-59-11 08:37:00* Test Item Value Reference Range Interpretation Comments Urine Methadone Screen (test code = 20329-9) NEGATIVE NEGATIVE THESE RESULTS ARE FOR MEDICAL TREATMENT ONLYTHIS REPORT CONTAINS UNCONFIR MED SCREENING RESULTS*POSITIVE RESULTS WILL BE CONFIRMED BY REFERENCE LAB UPON R EQUEST CUT-OFFDRUG CLASS CONCENTRATION ng/mLAmphetamines 1000Methamphetamines 1000Cocaine Metabolite 300Opiate 300Phencyc lidine 25Cannabinoid 50Barbiturates 300Benzodiazepine 300Methadone 300[facility] CenterUrine urobilinogen measurement by test strip (mass/volume)2019-12-11 08:37:00* Test Item Value Reference Range Interpretation Comments Urine Urobilinogen (test code = 21984-9) 0.2 0.2-1 [facility] CenterUrine total bilirubin measurement (mass/volume)2019-12-11 08:37:00* Test Item Value Reference Range Interpretation Comments Urine Bilirubin (test code = 1978-6) NEGATIVE NEGATIVE [facility] CenterUrine erythrocytes pmwbvkgeh2580-47-73 08:37:00* Test Item Value Reference Range Interpretation Comments Urine Blood (test code = 11950-9) NEGATIVE NEGATIVE [facility] CenterAutomated urine sediment leukocyte count by microscopy (number/high power field)2019-12-11 08:37:00* Test Item Value Reference Range Interpretation Comments Urine WBC (test code = 5821-4) 0-5 0-5 [facility] CenterErythrocytes detection in urine sediment by light tzgcuzezsc6407-64-95 08:37:00* Test Item Value Reference Range Interpretation Comments Urine RBC (test code = 79806-2) NONE 0-5 [facility] CenterBacteria detection in urine sediment by light gnyuhsdvpl5790-91-62 08:37:00* Test Item Value Reference Range Interpretation Comments Urine Bacteria (test code = 67760-1) FEW NONE [facility] CenterEpithelial cells detection in urine sediment by light evtxtxefba7246-58-39 08:37:00* Test Item Value Reference Range Interpretation Comments Urine Epithelial Cells (test code = 34809-1) RARE NONE [facility] Hospitalerum or plasma sodium measurement (moles/volume)2019-12-11 08:37:00* Test Item Value Reference Range Interpretation Comments Sodium Level (test code = 2951-2) 139 136-145 [facility] Hospitalerum or plasma potassium measurement (moles/volume)2019-12-11 08:37:00* Test Item Value Reference Range Interpretation Comments Potassium Level (test code = 2823-3) 3.7 3.5-5.1 [facility] Hospitalerum or plasma chloride measurement (moles/volume)2019-12-11 08:37:00* Test Item Value Reference Range Interpretation Comments Chloride Level (test code = 2075-0) 107 98-107 [facility] Hospitalerum or plasma carbon dioxide, total measurement (moles/volume)2019-12-11 08:37:00* Test Item Value Reference Range Interpretation Comments Carbon Dioxide Level (test code = 2028-9) 24 22-29 [facility] Hospitalerum or plasma anion oth9286-25-83 08:37:00* Test Item Value Reference Range Interpretation Comments Anion Gap (test code = 22613-5) 11.7 8-16 [facility] Hospitalerum or plasma urea nitrogen measurement (mass/volume)2019-12-11 08:37:00* Test Item Value Reference Range Interpretation Comments Blood Urea Nitrogen (test code = 3094-0) 15 7-26 [facility] Hospitalerum or plasma creatinine measurement (mass/volume)2019-12-11 08:37:00* Test Item Value Reference Range Interpretation Comments Creatinine (test code = 2160-0) 0.82 0.72-1.25 [facility] Hospitalerum or plasma urea nitrogen/creatinine mass ryrbw9912-57-66 08:37:00* Test Item Value Reference Range Interpretation Comments BUN/Creatinine Ratio (test code = 3097-3) 18 6-25 [facility] CenterEstimated glomerular filtration rate (GFR) orjkzirtgppyc8328-32-15 08:37:00* Test Item Value Reference Range Interpretation Comments Estimat Glomerular Filtration Rate (test code = 243467388) > 60 >60 Ranges were taken from the National Kidney Disease Education Program and the [facility] Kidney Foundation literature.Reference ranges:60 or greater: Yyifmn63-06 ( for 3 consecutive months): Chronic kidney disease 15 or less: Kidney failureWadley Regional Medical CenterGlucose suexgzqdksf1484-29-20 08:37:00* Test Item Value Reference Range Interpretation Comments Glucose Level (test code = SOL2105) 88 74-118 [facility] Hospitalerum or plasma calcium measurement (mass/volume)2019-12-11 08:37:00* Test Item Value Reference Range Interpretation Comments Calcium Level (test code = 66313-7) 9.1 8.4-10.2 [facility] Hospitalerum or plasma total bilirubin measurement (mass/volume)2019-12-11 08:37:00* Test Item Value Reference Range Interpretation Comments Total Bilirubin (test code = 1975-2) 0.4 0.2-1.2 [facility] CenterFluoroscopic procedure less than one hour blqkcffz5222-82-27 08:37:00* Test Item Value Reference Range Interpretation Comments Aspartate Amino Transf (AST/SGOT) (test code = Aspartate Amino Transf (AST/SGOT)) 29 5-34 [facility] Hospitalerum or plasma alanine aminotransferase measurement (enzymatic activity/volume)2019-12-11 08:37:00* Test Item Value Reference Range Interpretation Comments Alanine Aminotransferase (ALT/SGPT) (test code = 1742-6) 86 0-55 [facility] Hospitalerum or plasma protein measurement (mass/volume)2019-12-11 08:37:00* Test Item Value Reference Range Interpretation Comments Total Protein (test code = 2885-2) 7.5 6.5-8.1 [facility] Hospitalerum or plasma albumin measurement (mass/volume)2019-12-11 08:37:00* Test Item Value Reference Range Interpretation Comments Albumin (test code = 1751-7) 3.8 3.5-5.0 [facility] CenterPlasma globulin measurement (mass/volume) 2019-12-11 08:37:00* Test Item Value Reference Range Interpretation Comments Globulin (test code = 12437-2) 3.7 2.3-3.5 [facility] Hospitalerum or plasma albumin/globulin mass vrpee8087-28-70 08:37:00* Test Item Value Reference Range Interpretation Comments Albumin/Globulin Ratio (test code = 1759-0) 1.0 0.8-2.0 [facility] Hospitalerum or plasma alkaline phosphatase measurement (enzymatic activity/volume)2019-12-11 08:37:00* Test Item Value Reference Range Interpretation Comments Alkaline Phosphatase (test code = 6768-6) 23 40-150 [facility] Hospitalerum or plasma amylase measurement (enzymatic activity/volume)2019-12-11 08:37:00* Test Item Value Reference Range Interpretation Comments Amylase Level (test code = 1798-8) 62 25-125 [facility] Hospitalerum or plasma lipase measurement (enzymatic activity/volume)2019-12-11 08:37:00* Test Item Value Reference Range Interpretation Comments Lipase (test code = 3040-3) 31 8-78 [facility]- US ABDOMEN [id number] 21:58:00 Name: MAYO CA [facility] : 1995 Age/S: 24 / M [address] [facility] Unit #: [id number] Loc: [place] [address] Phys: Tj Mejias MD Acct: [id number] Di s Date: Status: [facility] ER PHONE #: [phone] Exam Date: 11/10/20192 FAX #: [phone] Reason: RUQ PAIN EXAMS: CPT CODE: [id number] [place] [address] HISTORY: Right upper quad rant pain. COMPARISON: [...] Yao M.D. CC: Marilin gist: Elizabeth Dallas RDWY Trnscb Date/Time: 0 11/10/2019 (2157) t.[email or web address] Orig Print D/T: S: 11/10/2019 (2200) Probe: PAGE 1 Signed Rep ort - US ABDOMEN [id number] 21:58:00 Name: LANNYMAYO [facility] : 1995 Age/S: 24 / M [address] [facility] Unit #: [id number] Loc: [place] [address] Phys: Tj Mejias MD Acct: [id number] Di s Date: Status: REG ER PHONE #: Exam Date: 11/10/20192135 FAX #: Reason: RUQ PAIN EXAMS: CPT CODE: [id number] [place] [address] HISTORY: Right upper quad rant pain. COMPARISON: [...] Signed by Kisha Yao on 020 at 215 Reported and signed by: Aristides Yao M.D. CC: Marilin gist: Elizabeth Dallas [facility] Trnscb Date/Time: 0 11/10/2019 (2157) [id number] Orig Print D/T: S: 11/10/2019 (2200) Probe: PAGE 1 Signed Rep ort URINALYSIS [id number] 21:04:00* Test Item Value Reference Range Interpretation [...] Urine Source? Clean CatchDRUGS OF ABUSE SCREEN [id number] 21:04:00* Test Item Value Reference Range Interpretation [...] NEGATIVE NEGATIV E Urine Source? Clean CatchURINALYSIS YFKWNDMA9515-38-24 20:57:00* Test Item Value Reference Range Interpretation [...] Urine Source? Clean CatchDRUGS OF ABUSE SCREEN [id number] 20:57:00* Test Item Value Reference Range Interpretation [...] NEGATIV E Urine Source? Clean CatchBASIC METABOLIC [id number] 20:51:00* Test Item Value Reference Range Interpretation [...] CA) 8.3 mg/dL 8.4-10.2 L HEPATIC FUNCTION [id number] 20:51:00* Test Item Value Reference Range Interpretation [...] code = ALKP) 22 U/L 38-126 L [id number] 20:51:00* Test Item Value Reference Range Interpretation Comments LIPASE (test code = LIP) 218 U/L 128-270 N BASIC METABOLIC GGZVY4980-20-27 20:47:00* Test Item Value Reference Range Interpretation [...] CA) 8.3 mg/dL 8.4-10.2 L HEPATIC FUNCTION [id number] 20:47:00* Test Item Value Reference Range Interpretation [...] TOTAL (test code = ALKP) IUnit/L 45-117 [id number] 20:47:00* Test Item Value Reference Range Interpretation Comments LIPASE (test code = LIP) Unit/L 144-286 CBC W/O [id number] 20:45:00* Test Item Value Reference Range Interpretation [...] fL 6.7-11.0 N CHEST SINGLE (PORTABLE)2019-11-01 08:31:00 [place] [address] Patient Name: MAYO CA MR #: [id number] : 1995 Age/Sex: 24/M Req #: [id number] Adm Physician: Ordered by: BELLA SAMSON DO Report #: [id number] Location: ER Room/Bed: Procedure: [id number] DX/CHEST SINGLE (PORTABLE) Exam Date: 11/01/19 Exam Time: 0515 REPORT STATUS: Signed EXAMINATION: CHEST SINGLE (PORTABLE) [...] SILVINO BERNAL MD 2 Transcribed By: KAILA LICEA on 11/01/19832 COPY TO: BELLA SAMSON DO Blood leukocytes automated count (number/volume)2019-11-01 05:00:00* Test Item Value Reference Range Interpretation Comments White Blood Count (test code = 6690-2) 4.76 4.8-10.8 [facility] CenterBlood erythrocytes automated count (number/volume)2019-11-01 05:00:00* Test Item Value Reference Range Interpretation Comments Red Blood Count (test code = 789-8) 5.77 4.3-5.7 [facility] CenterBlood hemoglobin measurement (moles/volume)2019-11-01 05:00:00* Test Item Value Reference Range Interpretation Comments Hemoglobin (test code = 18212-6) 16.0 14.0-18.0 [facility] CenterAutomated blood hematocrit (volume fraction)2019-11-01 05:00:00* Test Item Value Reference Range Interpretation Comments Hematocrit (test code = 4544-3) 47.1 38.2-49.6 [facility] CenterAutomated erythrocyte mean corpuscular qdydcf9715-65-49 05:00:00* Test Item Value Reference Range Interpretation Comments Mean Corpuscular Volume (test code = 787-2) 81.6 81-99 [facility] CenterAutomated erythrocyte mean corpuscular hemoglobin (mass per erythrocyte)2019-11-01 05:00:00* Test Item Value Reference Range Interpretation Comments Mean Corpuscular Hemoglobin (test code = 785-6) 27.7 28-32 [facility] CenterAutomated erythrocyte mean corpuscular hemoglobin concentration measurement (mass/volume)2019-11-01 05:00:00* Test Item Value Reference Range Interpretation Comments Mean Corpuscular Hemoglobin Concent (test code = 786-4) 34.0 31-35 [facility] CenterRDW DjiBh-Bzy7440-28-18 05:00:00* Test Item Value Reference Range Interpretation Comments Red Cell Distribution Width (test code = 92784-2) 12.0 11.7 -14.4 [facility] CenterAutomated blood platelet count (count/volume)2019-11-01 05:00:00* Test Item Value Reference Range Interpretation Comments Platelet Count (test code = 777-3) 156 140-360 [facility] CenterAutomated blood segmented neutrophil count as percentage of total gzphrxzwsv3673-50-99 05:00:00* Test Item Value Reference Range Interpretation Comments Neutrophils (%) (Auto) (test code = 38716-8) 73.5 38.7-80.0 [facility] CenterAutomated blood lymphocyte count as percentage ot total szzjlaviph4620-90-64 05:00:00* Test Item Value Reference Range Interpretation Comments Lymphocytes (%) (Auto) (test code = 736-9) 20.0 18.0-39.1 [facility] CenterAutomated blood monocyte count as percentage of total upwhrcbgvs1285-26-58 05:00:00* Test Item Value Reference Range Interpretation Comments Monocytes (%) (Auto) (test code = 5905-5) 6.1 4.4-11.3 [facility] CenterAutomated blood eosinophil count as percentage of total aszninztcm3372-83-44 05:00:00* Test Item Value Reference Range Interpretation Comments Eosinophils (%) (Auto) (test code = 713-8) 0.0 0.0-6.0 [facility] CenterAutomated blood basophil count as percentage of total qtzkpwyewz2339-46-15 05:00:00* Test Item Value Reference Range Interpretation Comments Basophils (%) (Auto) (test code = 706-2) 0.2 0.0-1.0 [facility] CenterFluoroscopic procedure less than one hour njsmuvey1868-40-54 05:00:00* Test Item Value Reference Range Interpretation Comments IM GRANULOCYTES % (test code = IM GRANULOCYTES %) 0.2 0.0- 1.0 [facility] CenterAutomated blood neutrophil count 2019-11-01 05:00:00* Test Item Value Reference Range Interpretation Comments Neutrophils # (Auto) (test code = 751-8) 3.5 2.1-6.9 [facility] CenterBlood lymphocytes count (number/volume) 2019-11-01 05:00:00* Test Item Value Reference Range Interpretation Comments Lymphocytes # (Auto) (test code = 97878-5) 1.0 1.0-3.2 [facility] CenterBlood monocytes automated count (number/volume)2019-11-01 05:00:00* Test Item Value Reference Range Interpretation Comments Monocytes # (Auto) (test code = 742-7) 0.3 0.2-0.8 [facility] CenterAutomated blood eosinophil count 2019-11-01 05:00:00* Test Item Value Reference Range Interpretation Comments Eosinophils # (Auto) (test code = 711-2) 0.0 0.0-0.4 [facility] CenterAutomated blood basophil count (count/volume)2019-11-01 05:00:00* Test Item Value Reference Range Interpretation Comments Basophils # (Auto) (test code = 704-7) 0.0 0.0-0.1 [facility] CenterFluoroscopic procedure less than one hour qgmdvoiz9898-82-60 05:00:00* Test Item Value Reference Range Interpretation Comments Absolute Immature Granulocyte (auto (anne t code = Absolute Immature Granulocyte (auto) 0.01 0-0.1 [facility] Hospitalerum or plasma sodium measurement (moles/volume)2019-11-01 05:00:00* Test Item Value Reference Range Interpretation Comments Sodium Level (test code = 2951-2) 134 136-145 [facility] Hospitalerum or plasma potassium measurement (moles/volume)2019-11-01 05:00:00* Test Item Value Reference Range Interpretation Comments Potassium Level (test code = 2823-3) 3.5 3.5-5.1 [facility] Hospitalerum or plasma chloride measurement (moles/volume)2019-11-01 05:00:00* Test Item Value Reference Range Interpretation Comments Chloride Level (test code = 2075-0) 102 98-107 [facility] Hospitalerum or plasma carbon dioxide, total measurement (moles/volume)2019-11-01 05:00:00* Test Item Value Reference Range Interpretation Comments Carbon Dioxide Level (test code = 2028-9) 19 22-29 [facility] Hospitalerum or plasma anion qow8785-87-19 05:00:00* Test Item Value Reference Range Interpretation Comments Anion Gap (test code = 36043-8) 16.5 8-16 [facility] Hospitalerum or plasma urea nitrogen measurement (mass/volume)2019-11-01 05:00:00* Test Item Value Reference Range Interpretation Comments Blood Urea Nitrogen (test code = 3094-0) 10 7-26 [facility] Hospitalerum or plasma creatinine measurement (mass/volume)2019-11-01 05:00:00* Test Item Value Reference Range Interpretation Comments Creatinine (test code = 2160-0) 1.07 0.72-1.25 [facility] Hospitalerum or plasma urea nitrogen/creatinine mass pgkkn0433-73-81 05:00:00* Test Item Value Reference Range Interpretation Comments BUN/Creatinine Ratio (test code = 3097-3) 9 6-25 [facility] CenterEstimated glomerular filtration rate (GFR) otcjplaxavfko8093-72-08 05:00:00* Test Item Value Reference Range Interpretation Comments Estimat Glomerular Filtration Rate (test code = 311816795) > 60 >60 Ranges were taken from the National Kidney Disease Education Program and the [facility] literature.Reference ranges:60 or greater: Vjouac48-75 ( for 3 consecutive months): Chronic kidney disease 15 or less: Kidney failureWadley Regional Medical CenterGlucose lfikhyqvsrk2661-32-82 05:00:00* Test Item Value Reference Range Interpretation Comments Glucose Level (test code = GHY2842) 131 74-118 [facility] Hospitalerum or plasma calcium measurement (mass/volume)2019-11-01 05:00:00* Test Item Value Reference Range Interpretation Comments Calcium Level (test code = 47008-2) 8.4 8.4-10.2 [facility] Hospitalerum or plasma creatine kinase measurement (enzymatic activity/volume)2019-10-30 14:00:00* Test Item Value Reference Range Interpretation Comments Creatine Kinase (test code = 2157-6) 77 30-200 [facility] Hospitalerum or plasma creatine kinase MB measurement (mass/volume)2019-10-30 14:00:00* Test Item Value Reference Range Interpretation Comments Creatine Kinase MB (test code = 17681-4) 0.40 0-5.0 [facility] CenterTroponin I measurement by highly sensitive enzyme itnouuknlxg3346-68-41 14:00:00* Test Item Value Reference Range Interpretation Comments Troponin I (test code = 47825-0) 0.006 0-0.300 [facility] Hospitalerum or plasma creatine kinase measurement (enzymatic activity/volume)2019-10-30 14:00:00* Test Item Value Reference Range Interpretation Comments Creatine Kinase (test code = 2157-6) 77 30-200 [facility] Hospitalerum or plasma creatine kinase MB measurement (mass/volume)2019-10-30 14:00:00* Test Item Value Reference Range Interpretation Comments Creatine Kinase MB (test code = 21084-9) 0.40 0-5.0 [facility] CenterTroponin I measurement by highly sensitive enzyme ajzvhobqfdp4024-91-58 14:00:00* Test Item Value Reference Range Interpretation Comments Troponin I (test code = 30398-8) 0.006 0-0.300 [facility] Hospitalerum or plasma creatine kinase measurement (enzymatic activity/volume)2019-10-30 14:00:00* Test Item Value Reference Range Interpretation Comments Creatine Kinase (test code = 2157-6) 77 30-200 [facility] Hospitalerum or plasma creatine kinase MB measurement (mass/volume)2019-10-30 14:00:00* Test Item Value Reference Range Interpretation Comments Creatine Kinase MB (test code = 58769-6) 0.40 0-5.0 [facility] CenterTroponin I measurement by highly sensitive enzyme mtfmuxfbsnk1988-94-23 14:00:00* Test Item Value Reference Range Interpretation Comments Troponin I (test code = 85877-9) 0.006 0-0.300 [facility] CenterBlsleepy eye [facility] leukocytes automated count (number/volume)2019-10-30 06:11:00* Test Item Value Reference Range Interpretation Comments White Blood Count (test code = 6690-2) 3.71 4.8-10.8 [facility] erythrocytes automated count (number/volume)2019-10-30 06:11:00* Test Item Value Reference Range Interpretation Comments Red Blood Count (test code = 789-8) 5.60 4.3-5.7 [facility] hemoglobin measurement (moles/volume)2019-10-30 06:11:00* Test Item Value Reference Range Interpretation Comments Hemoglobin (test code = 74944-7) 15.6 14.0-18.0 [facility] CenterAutomated blood hematocrit (volume fraction)2019-10-30 06:11:00* Test Item Value Reference Range Interpretation Comments Hematocrit (test code = 4544-3) 47.1 38.2-49.6 [facility] CenterAutomated erythrocyte mean corpuscular hjtqzl0749-87-75 06:11:00* Test Item Value Reference Range Interpretation Comments Mean Corpuscular Volume (test code = 787-2) 84.1 81-99 [facility] CenterAutomated erythrocyte mean corpuscular hemoglobin (mass per erythrocyte)2019-10-30 06:11:00* Test Item Value Reference Range Interpretation Comments Mean Corpuscular Hemoglobin (test code = 785-6) 27.9 28-32 [facility] CenterAutomated erythrocyte mean corpuscular hemoglobin concentration measurement (mass/volume)2019-10-30 06:11:00* Test Item Value Reference Range Interpretation Comments Mean Corpuscular Hemoglobin Concent (test code = 786-4) 33.1 31-35 [facility] CenterRDW TezAq-Xsk0552-94-16 06:11:00* Test Item Value Reference Range Interpretation Comments Red Cell Distribution Width (test code = 91317-5) 12.3 11.7 -14.4 [facility] CenterAutomated blood platelet count (count/volume)2019-10-30 06:11:00* Test Item Value Reference Range Interpretation Comments Platelet Count (test code = 777-3) 162 140-360 [facility] CenterAutomated blood segmented neutrophil count as percentage of total goxhxrjlop7282-79-01 06:11:00* Test Item Value Reference Range Interpretation Comments Neutrophils (%) (Auto) (test code = 71347-1) 60.6 38.7-80.0 [facility] as percentage ot total quexpeisci1504-79-74 06:11:00* Test Item Value Reference Range Interpretation Comments Lymphocytes (%) (Auto) (test code = 736-9) 28.3 18.0-39.1 [facility] CenterAutomated blood monocyte count as percentage of total rdvpnooxvn9146-17-03 06:11:00* Test Item Value Reference Range Interpretation Comments Monocytes (%) (Auto) (test code = 5905-5) 10.5 4.4-11.3 [facility] CenterAutomated blood eosinophil count as percentage of total ofzgsvcdzt5274-65-97 06:11:00* Test Item Value Reference Range Interpretation Comments Eosinophils (%) (Auto) (test code = 713-8) 0.0 0.0-6.0 [facility] CenterAutomated blood basophil count as percentage of total unfvqneptu4158-42-14 06:11:00* Test Item Value Reference Range Interpretation Comments Basophils (%) (Auto) (test code = 706-2) 0.3 0.0-1.0 [facility] CenterFluoroscopic procedure less than one hour ibrvoyie3780-15-59 06:11:00* Test Item Value Reference Range Interpretation Comments IM GRANULOCYTES % (test code = IM GRANULOCYTES %) 0.3 0.0- 1.0 [facility] CenterAutomated blood neutrophil count 2019-10-30 06:11:00* Test Item Value Reference Range Interpretation Comments Neutrophils # (Auto) (test code = 751-8) 2.3 2.1-6.9 [facility] CenterBlood lymphocytes count (number/volume) 2019-10-30 06:11:00* Test Item Value Reference Range Interpretation Comments Lymphocytes # (Auto) (test code = 06528-1) 1.1 1.0-3.2 [facility] CenterBlood monocytes automated count (number/volume)2019-10-30 06:11:00* Test Item Value Reference Range Interpretation Comments Monocytes # (Auto) (test code = 742-7) 0.4 0.2-0.8 [facility] CenterAutomated blood eosinophil count 2019-10-30 06:11:00* Test Item Value Reference Range Interpretation Comments Eosinophils # (Auto) (test code = 711-2) 0.0 0.0-0.4 [facility] CenterAutomated blood basophil count (count/volume)2019-10-30 06:11:00* Test Item Value Reference Range Interpretation Comments Basophils # (Auto) (test code = 704-7) 0.0 0.0-0.1 [facility] CenterFluoroscopic procedure less than one hour czphjxdx2383-56-92 06:11:00* Test Item Value Reference Range Interpretation Comments Absolute Immature Granulocyte (auto (anne t code = Absolute Immature Granulocyte (auto) 0.01 0-0.1 [facility] Hospitalerum or plasma sodium measurement (moles/volume)2019-10-30 06:11:00* Test Item Value Reference Range Interpretation Comments Sodium Level (test code = 2951-2) 139 136-145 [facility] Hospitalerum or plasma potassium measurement (moles/volume)2019-10-30 06:11:00* Test Item Value Reference Range Interpretation Comments Potassium Level (test code = 2823-3) 4.0 3.5-5.1 [facility] Hospitalerum or plasma chloride measurement (moles/volume)2019-10-30 06:11:00* Test Item Value Reference Range Interpretation Comments Chloride Level (test code = 2075-0) 108 98-107 [facility] Hospitalerum or plasma carbon dioxide, total measurement (moles/volume)2019-10-30 06:11:00* Test Item Value Reference Range Interpretation Comments Carbon Dioxide Level (test code = 2028-9) 23 22-29 [facility] Hospitalerum or plasma anion jge2282-55-98 06:11:00* Test Item Value Reference Range Interpretation Comments Anion Gap (test code = 02061-5) 12.0 8-16 [facility] Hospitalerum or plasma urea nitrogen measurement (mass/volume)2019-10-30 06:11:00* Test Item Value Reference Range Interpretation Comments Blood Urea Nitrogen (test code = 3094-0) 9 7-26 [facility] Hospitalerum or plasma creatinine measurement (mass/volume)2019-10-30 06:11:00* Test Item Value Reference Range Interpretation Comments Creatinine (test code = 2160-0) 0.99 0.72-1.25 [facility] Hospitalerum or plasma urea nitrogen/creatinine mass uitbi4559-37-41 06:11:00* Test Item Value Reference Range Interpretation Comments BUN/Creatinine Ratio (test code = 3097-3) 9 6-25 [facility] CenterEstimated glomerular filtration rate (GFR) suorgajruvduc7067-27-52 06:11:00* Test Item Value Reference Range Interpretation Comments Estimat Glomerular Filtration Rate (test code = 895060456) > 60 >60 Ranges were taken from the National Kidney Disease Education Program and the [facility] literature.Reference ranges:60 or greater: Wbcvmi08-32 ( for 3 consecutive months): Chronic kidney disease 15 or less: Kidney failureWadley Regional Medical CenterGlucose qgsrcmrhami1020-26-37 06:11:00* Test Item Value Reference Range Interpretation Comments Glucose Level (test code = FPC0132) 87 74-118 [facility] Hospitalerum or plasma calcium measurement (mass/volume)2019-10-30 06:11:00* Test Item Value Reference Range Interpretation Comments Calcium Level (test code = 99405-0) 8.4 8.4-10.2 [facility] Hospitalerum or plasma total bilirubin measurement (mass/volume)2019-10-30 06:11:00* Test Item Value Reference Range Interpretation Comments Total Bilirubin (test code = 1975-2) 0.6 0.2-1.2 [facility] CenterFluoroscopic procedure less than one hour ehiyxsow9637-71-90 06:11:00* Test Item Value Reference Range Interpretation Comments Aspartate Amino Transf (AST/SGOT) (test code = Aspartate Amino Transf (AST/SGOT)) 41 5-34 [facility] Hospitalerum or plasma alanine aminotransferase measurement (enzymatic activity/volume)2019-10-30 06:11:00* Test Item Value Reference Range Interpretation Comments Alanine Aminotransferase (ALT/SGPT) (test code = 1742-6) 68 0-55 [facility] Hospitalerum or plasma protein measurement (mass/volume)2019-10-30 06:11:00* Test Item Value Reference Range Interpretation Comments Total Protein (test code = 2885-2) 7.5 6.5-8.1 [facility] Hospitalerum or plasma albumin measurement (mass/volume)2019-10-30 06:11:00* Test Item Value Reference Range Interpretation Comments Albumin (test code = 1751-7) 3.5 3.5-5.0 [facility] CenterPlasma globulin measurement (mass/volume) 2019-10-30 06:11:00* Test Item Value Reference Range Interpretation Comments Globulin (test code = 21532-0) 4.0 2.3-3.5 [facility] Hospitalerum or plasma albumin/globulin mass tgovb8319-91-07 06:11:00* Test Item Value Reference Range Interpretation Comments Albumin/Globulin Ratio (test code = 1759-0) 0.9 0.8-2.0 [facility] Hospitalerum or plasma alkaline phosphatase measurement (enzymatic activity/volume)2019-10-30 06:11:00* Test Item Value Reference Range Interpretation Comments Alkaline Phosphatase (test code = 6768-6) 24 40-150 [facility] Hospitalerum or plasma total bilirubin measurement (mass/volume)2019-10-30 06:11:00* Test Item Value Reference Range Interpretation Comments Total Bilirubin (test code = 1974-2) 0.6 0.2-1.[address] [facility] [facility] CenterFluor[facility] procedure less than one hour geesebfb1195-87-76 06:11:00* Test Item Value Reference Range Interpretation Comments Aspartate Amino Transf (AST/SGOT) (test code = Aspartate Amino Transf (AST/SGOT)) 41 5-34 [facility] Hospitalerum or plasma alanine aminotransferase measurement (enzymatic activity/volume)2019-10-30 06:11:00* Test Item Value Reference Range Interpretation Comments Alanine Aminotransferase (ALT/SGPT) (test code = 1742-6) 68 0-55 [facility] Hospitalerum or plasma protein measurement (mass/volume)2019-10-30 06:11:00* Test Item Value Reference Range Interpretation Comments Total Protein (test code = 2885-2) 7.5 6.5-8.1 [facility] Hospitalerum or plasma albumin measurement (mass/volume)2019-10-30 06:11:00* Test Item Value Reference Range Interpretation Comments Albumin (test code = 1751-7) 3.5 3.5-5.0 [facility] CenterPlasma globulin measurement (mass/volume) 2019-10-30 06:11:00* Test Item Value Reference Range Interpretation Comments Globulin (test code = 13954-1) 4.0 2.3-3.5 [facility] Hospitalerum or plasma albumin/globulin mass ypapd4044-91-75 06:11:00* Test Item Value Reference Range Interpretation Comments Albumin/Globulin Ratio (test code = 1759-0) 0.9 0.8-2.0 [facility] Hospitalerum or plasma alkaline phosphatase measurement (enzymatic activity/volume)2019-10-30 06:11:00* Test Item Value Reference Range Interpretation Comments Alkaline Phosphatase (test code = 6768-6) 24 40-150 [facility] CenterCHEST SINGLE (PORTABLE)2019-10-29 21:50:00 [place] [address] Patient Name: MAYO CA MR #: [id number] : 1995 Age/Sex: 24/M Req #: [id number] Adm Physician: Ordered by: RENY ALEXANDER MD Report #: [id number] Location: ER Room/Bed: Procedure: [id number] DX/CHES T SINGLE (PORTABLE) Exam Date: 10/29/19 [...] COPY TO: RENY DIAL MD CT ABDOMEN/PELVIS [id number] 21:42:00 [place] [address] Patient Name: MAYO CA MR #: [id number] : 1995 Age/Sex: 24/M Req #: [id number] Adm Physician: KALE VIRK MD Ordered by: RENY ALEXANDER MD Report #: [id number] Location: [facility] Room/Bed: [facility] 176-1 Procedure: [id number] CT/CT A BDOMEN/PELVIS W Exam Date: 10/29/19 [...] MD Fluoroscopic procedure less than one hour pgxcbaud8935-27-76 20:07:00* Test Item Value Reference Range Interpretation [...] from individuals suspected of COVID-19 by their [facility] provider. This test has not been [...] under 564(g) of the ACT.Testing performed by [facility] [place], [place] [address]MYOWad[facility] CenterFluoroscopic procedure less than one hour htippgar0677-93-61 20:07:00* Test Item Value Reference Range Interpretation [...] from individuals suspected of COVID-19 by their [facility] provider. This test has not been [...] under 564(g) of the ACT.Testing performed by [address] [address]MIBWadley Regional Medical CenterFluoroscopic procedure less than one hour vxladcqp7745-22-45 20:07:00* Test Item Value Reference Range Interpretation [...] from individuals suspected of COVID-19 by their [facility] provider. This test has not been [...] under 564(g) of the ACT.Testing performed by [facility] [place], [place] [address]ADTWadley Regional Medical CenterProthrombin time (PT) in platelet poor plasma by coagulation mapkv4566-78-98 19:49:00* Test Item Value Reference Range Interpretation Comments Prothrombin Time (test code = 5902-2) 13.3 11.9-14.5 [facility] CenterINR in Platelet poor plasma by Coagulation pxqkd8149-27-26 19:49:00* Test Item Value Reference Range Interpretation Comments Prothromb Time International Ratio (test code = 6301-6) 0.96 Oral Anticoagulant Therapy INR Values:1. Low Intensity Therapy 1.5 - 2.02 . Moderate Intensity Therapy 2.0 - 3.03. High Intensity Therapy(1) 2.5 - 3. 54. High Intensity Therapy(2) 3.0 - 4.05. Panic Value INR > 5.0 [facility] CenterActivated partial thromboplastin time (aPTT) in platelet poor plasma by coagulation szdgv8977-09-57 19:49:00* Test Item Value Reference Range Interpretation Comments Activated Partial Thromboplast Time (test code = 63020-9) 28.5 23.8-35.5 [facility] CenterUrine color kfvyzvudmohkv3124-40-70 19:49:00* Test Item Value Reference Range Interpretation Comments Urine Color (test code = 5778-6) STRAW YELLOW [facility] CenterUrine svynvev1457-02-69 19:49:00* Test Item Value Reference Range Interpretation Comments Urine Clarity (test code = 05399-7) SL CLOUDY CLEAR [facility] Hospitalpecific gravity of Urine by Test strip 2019-10-29 19:49:00* Test Item Value Reference Range Interpretation Comments Urine Specific [place] (test code = 5811-5) 1.025 1.010-1.02 5 [facility] CenterUrine pH measurement by automated test lexxn3185-78-56 19:49:00* Test Item Value Reference Range Interpretation Comments Urine pH (test code = 65950-5) 7 5-7 [facility] CenterUrine leukocyte esterase detection by tujlgxhn0647-52-92 19:49:00* Test Item Value Reference Range Interpretation Comments Urine Leukocyte Esterase (test code = 5799-2) NEGATIVE NEGATIVE [facility] CenterUrine nitrite vlsgwqtpw7040-44-41 19:49:00* Test Item Value Reference Range Interpretation Comments Urine Nitrite (test code = 56252-4) NEGATIVE NEGATIVE [facility] CenterUrine protein measurement by test strip (mass/volume)2019-10-29 19:49:00* Test Item Value Reference Range Interpretation Comments Urine Protein (test code = 5804-0) 1+ NEGATIVE [facility] [facility] [id number] 19:49:00* Test Item Value Reference Range Interpretation Comments Urine Glucose (UA) (test code = 2349-9) NEGATIVE NEGATIVE [facility] ketones detection by automated test [id number] 19:49:00* Test Item Value Reference Range Interpretation Comments Urine Ketones (test code = 17118-6) NEGATIVE NEGATIVE [facility] CenterU[facility] urobilinogen measurement by test strip (mass/volume)2019-10-29 19:49:00* Test Item Value Reference Range Interpretation Comments Urine Urobilinogen (test code = 34915-0) 1 0.2-1 [facility] total bilirubin measurement (mass/volume)2019-10-29 19:49:00* Test Item Value Reference Range Interpretation Comments Urine Bilirubin (test code = 1977-10) SMALL NEGATIVE [facility] CenterU[facility] erythrocytes [id number] 19:49:00* Test Item Value Reference Range Interpretation Comments Urine Blood (test code = 26475-9) NEGATIVE NEGATIVE [facility] CenterAutomated urine sediment leukocyte count by microscopy (number/high power field)2019-10-29 19:49:00* Test Item Value Reference Range Interpretation Comments Urine WBC (test code = 5821-4) 0-5 0-5 [facility] CenterErythrocytes detection in urine sediment by light [id number] 19:49:00* Test Item Value Reference Range Interpretation Comments Urine RBC (test code = 84274-5) 0-5 0-5 [facility] CenterBacteria detection in urine sediment by light aisdlupzmy2661-67-67 19:49:00* Test Item Value Reference Range Interpretation Comments Urine Bacteria (test code = 11758-7) FEW NONE [facility] CenterEpithelial cells detection in urine sediment by light ecypljrkjq5428-16-85 19:49:00* Test Item Value Reference Range Interpretation Comments Urine Epithelial Cells (test code = 86119-6) FEW NONE [facility] CenterFluoroscopic procedure less than one hour kosboppu3169-87-94 19:49:00* Test Item Value Reference Range Interpretation Comments Lactic Acid Level (test code = Lactic Acid Level) 1.7 0.5- 2.0 [facility] CenterBlood [id number] 19:49:00* Test Item Value Reference Range Interpretation Comments Blood Culture (test code = 08456116) NO GROWTH AFTER 24 HOURS [facility] CenterProthrombin time (PT) in platelet poor plasma by coagulation [id number] 19:49:00* Test Item Value Reference Range Interpretation Comments Prothrombin Time (test code = 5902-2) 13.3 11.9-14.5 [facility] CenterINR in Platelet poor plasma by Coagulation rcgnl0815-58-25 19:49:00* Test Item Value Reference Range Interpretation Comments Prothromb Time International Ratio (test code = 6301-6) 0.96 Oral Anticoagulant Therapy INR Values:1. Low Intensity Therapy 1.5 - 2.02 . Moderate Intensity Therapy 2.0 - 3.03. High Intensity Therapy(1) 2.5 - 3. 54. High Intensity Therapy(2) 3.0 - 4.05. Panic Value INR > 5.0 [facility] CenterActivated partial thromboplastin time (aPTT) in platelet poor plasma by coagulation iojzl8638-28-80 19:49:00* Test Item Value Reference Range Interpretation Comments Activated Partial Thromboplast Time (test code = 84353-2) 28.5 23.8-35.5 [facility] CenterUrine color uzloodgudsblm2104-24-02 19:49:00* Test Item Value Reference Range Interpretation Comments Urine Color (test code = 5778-6) STRAW YELLOW [facility] CenterUrine pfrfntl1579-09-31 19:49:00* Test Item Value Reference Range Interpretation Comments Urine Clarity (test code = 81578-9) SL CLOUDY CLEAR [facility] by Test strip 2019-10-29 19:49:00* Test Item Value Reference Range Interpretation Comments Urine Specific [place] (test code = 5811-5) 1.025 1.010-1.02 5 [facility] CenterU[facility] pH measurement by automated test [id number] 19:49:00* Test Item Value Reference Range Interpretation Comments Urine pH (test code = 67796-3) 7 5-7 [facility] CenterU[facility] leukocyte esterase detection by gktoqyvn7993-61-28 19:49:00* Test Item Value Reference Range Interpretation Comments Urine Leukocyte Esterase (test code = 5799-2) NEGATIVE NEGATIVE [facility] CenterU[facility] nitrite zjkpjpkeh1323-34-96 19:49:00* Test Item Value Reference Range Interpretation Comments Urine Nitrite (test code = 84778-3) NEGATIVE NEGATIVE [facility] CenterU[facility] protein measurement by test strip (mass/volume)2019-10-29 19:49:00* Test Item Value Reference Range Interpretation Comments Urine Protein (test code = 5804-0) 1+ NEGATIVE [facility] CenterU[facility] glucose yalwelrvd9078-85-58 19:49:00* Test Item Value Reference Range Interpretation Comments Urine Glucose (UA) (test code = 2349-9) NEGATIVE NEGATIVE [facility] CenterU[facility] ketones detection by automated test [id number] 19:49:00* Test Item Value Reference Range Interpretation Comments Urine Ketones (test code = 38969-4) NEGATIVE NEGATIVE [facility] CenterUrine urobilinogen measurement by test strip (mass/volume)2019-10-29 19:49:00* Test Item Value Reference Range Interpretation Comments Urine Urobilinogen (test code = 40685-5) 1 0.2-1 [facility] CenterU[facility] total bilirubin measurement (mass/volume)2019-10-29 19:49:00* Test Item Value Reference Range Interpretation Comments Urine Bilirubin (test code = 1978-6) SMALL NEGATIVE [facility] CenterU[facility] erythrocytes ykdxsnpxz1885-81-97 19:49:00* Test Item Value Reference Range Interpretation Comments Urine Blood (test code = 36549-0) NEGATIVE NEGATIVE [facility] CenterAutomated urine sediment leukocyte count by microscopy (number/high power field)2019-10-29 19:49:00* Test Item Value Reference Range Interpretation Comments Urine WBC (test code = 5821-4) 0-5 0-5 [facility] CenterErythrocytes detection in urine sediment by light lobszprrfi3222-08-06 19:49:00* Test Item Value Reference Range Interpretation Comments Urine RBC (test code = 72067-4) 0-5 0-5 [facility] CenterBacteria detection in urine sediment by light qfurmuskdb6675-57-01 19:49:00* Test Item Value Reference Range Interpretation Comments Urine Bacteria (test code = 99147-3) FEW NONE [facility] CenterEpithelial cells detection in urine sediment by light thgzawzkyp0336-66-25 19:49:00* Test Item Value Reference Range Interpretation Comments Urine Epithelial Cells (test code = 25179-6) FEW NONE [facility] CenterFluoroscopic procedure less than one hour ququhuxc7843-41-19 19:49:00* Test Item Value Reference Range Interpretation Comments Lactic Acid Level (test code = Lactic Acid Level) 1.7 0.5- 2.0 [facility] CenterBlood rsoynsi1111-13-69 19:49:00* Test Item Value Reference Range Interpretation Comments Blood Culture (test code = 07987045) NO GROWTH AFTER 48 HOURS [facility] CenterFluoroscopic procedure less than one hour dxmhlnig2649-99-38 19:49:00* Test Item Value Reference Range Interpretation Comments Lactic Acid Level (test code = Lactic Acid Level) 1.7 0.5- 2.0 [facility] CenterBlood tprochk5764-14-96 19:49:00* Test Item Value Reference Range Interpretation Comments Blood Culture (test code = 47907581) NO GROWTH AFTER 5 DAYS, FINAL REPORT [facility] CenterURINALYSIS [id number] 16:28:00* Test Item Value Reference Range Interpretation [...] per HPF NONE Urine Source? Clean CatchURINALYSIS [id number] 16:22:00* Test Item Value Reference Range Interpretation [...] HPF NONE Urine Source? Clean CatchBASIC METABOLIC [id number] 16:15:00* Test Item Value Reference Range Interpretation [...] code = CA) 9.2 mg/dL 8.5-10.1 N [id number]-[id number] 16:15:00* Test Item Value Reference Range Interpretation Comments TROPONIN-I (test code = TROPI) <0.015 ng/mL 0-0.045 N BASIC METABOLIC [id number] 16:06:00* Test Item Value Reference Range Interpretation [...] CALCIUM (test code = CA) mg/dL 8.5-10.1 [id number]-[id number] 16:06:00* Test Item Value Reference Range Interpretation Comments TROPONIN-I (test code = TROPI) ng/mL 0-0.045 CBC W/O [id number] 15:50:00* Test Item Value Reference Range Interpretation [...]
[2019-12-20] MEDS ORDERED: SODIUM CHLORIDE 0.9% 50ML 50 ML ONE (07:24)
[2019-12-20] MEDS ORDERED: IOPAMIDOL 370 MG/ML 200 ML INFUS..BTL INJ ONE (07:24)
[2019-12-20 07:29] LABS: BASOPHILS % 0.4 % (0.0-1.0); EOSINOPHILS # (AUTO) 0.2 (0.0-0.4); EOSINOPHILS % 2.8 % (0.0-6.0); HEMATOCRIT 43.5 % (38.2-49.6); HEMOGLOBIN 14.4 g/dL (14.0-18.0); LYMPHOCYTES % 30.2 % (18.0-39.1); MEAN CORPUSCULAR HEMOGLOBIN 28.1 pg (28-32); MEAN CORPUSCULAR HGB CONC 33.1 g/dL (31-35); MEAN CORPUSCULAR VOLUME 84.8 fL (81-99); MONOCYTES # (AUTO) 0.6 (0.2-0.8); MONOCYTES % 8.5 % (4.4-11.3); NEUTROPHILS # (AUTO) 3.8 (2.1-6.9); NEUTROPHILS % 57.7 % (38.7-80.0); PLATELET COUNT 294 x10e3/uL (140-360); RED BLOOD COUNT 5.13 x10e6/uL (4.3-5.7); RED CELL DISTRIBUTION WIDTH 13.3 % (11.7-14.4)
[2019-12-20 07:39] LABS: CLARITY,URINE CLEAR (CLEAR); COLOR,URINE YELLOW (YELLOW); LEUKOCYTE ESTERASE ,URINE NEGATIVE (NEGATIVE)
[2019-12-20 07:40] LABS: BILIRUBIN,URINE NEGATIVE (NEGATIVE); KETONES,URINE NEGATIVE (NEGATIVE); NITRITE,URINE NEGATIVE (NEGATIVE); PROTEIN,URINE DIPSTICK NEGATIVE (NEGATIVE); URINE UROBILINOGEN 0.2 mg/dL (0.2 - 1)
[2019-12-20 07:44] LABS: AMPHETAMINES SCREEN,URINE NEGATIVE (NEGATIVE); BENZODIAZEPINES SCREEN,URINE NEGATIVE (NEGATIVE); PHENCYCLIDINE SCREEN,URINE NEGATIVE (NEGATIVE)
[2019-12-20 07:48] LABS: ALANINE AMINOTRANSFERASE 69 IU/L (0-55); ALBUMIN 3.9 g/dL (3.5-5.0); ALBUMIN/GLOBULIN RATIO 1.1 (0.8-2.0); ALKALINE PHOSPHATASE 25 IU/L (40-150); ANION GAP 12.1 mmol/L (8-16); BLOOD UREA NITROGEN 12 mg/dL (7-26); BUN/CREATININE RATIO 13 (6-25); CALCIUM 9.1 mg/dL (8.4-10.2); CARBON DIOXIDE 25 mmol/L (22-29); CHLORIDE 108 mmol/L (98-107); EST GLOMERULAR FILTRATION RATE > 60 ML/MIN (60-); GLUCOSE 91 mg/dL (74-118); LIPASE 51 U/L (8-78); POTASSIUM 4.1 mmol/L (3.5-5.1); SODIUM 141 mmol/L (136-145)
[2019-12-20 07:56] LABS: BACTERIA,URINE RARE /HPF; EPITHELIAL CELLS,URINE FEW /LPF; RBC,URINE 0-5 /HPF (0-5); WBC,URINE (MAN) 0-5 /HPF (0-5)
--- NOTE | 2019-12-20 08:30 | NUR ---
PATIENT TO ROOM 8
--- NOTE | 2019-12-20 08:57 | Diagnostic Imaging Report ---
CT of the abdomen and pelvis, with contrast. History: Right upper quadrant pain. Comparison: CT abdomen/pelvis with contrast from 10/29/2019. Technique: Multidetector CT scanning of the abdomen and pelvis was performed from the level of the lung bases to the inferior pubic rami after intravenous administration of contrast. Coronal and sagittal multiplanar reformations were obtained. RADIATION DOSE: Total DLP: 675.94 mGy*cm Dose modulation, iterative reconstruction, and/or weight based adjustment of the mA/kV was utilized to reduce the radiation dose to as low as reasonably achievable. FINDINGS: The previously visualized groundglass opacities within the lung bases have resolved. The imaged portion of the heart demonstrates no significant abnormalities. The liver is normal in size but appears diffusely decreased in attenuation in comparison 2 the spleen which can be seen in the setting of fatty infiltration. Again identified is a calcified gallstone within the lumen of the gallbladder. There is no evidence for gallbladder wall thickening or pericholecystic fluid. There is no intra or extrahepatic biliary ductal dilatation. The stomach, spleen, pancreas, and bilateral adrenal glands are unremarkable. The kidneys are normal in size and location and enhance symmetrically. Probable extrarenal pelvis noted on the right. There is no evidence for nephrolithiasis or hydronephrosis. No ureteral stone or dilatation is appreciated. The partially distended urinary bladder demonstrates no significant abnormalities. The prostate is unremarkable. The abdominal aorta is normal course and caliber. The IVC is unremarkable. Please note evaluation the bowel is limited without the use of enteric contrast material. The visualized loops of small and large bowel demonstrate no evidence of obstruction or inflammation. The appendix is visualized and appears unremarkable. There is no ascites or intraperitoneal free air. No abnormally enlarged lymph nodes are identified within the abdomen or pelvis. Again noted are bilateral L5 pars interarticularis defects. The osseous structures otherwise demonstrate no evidence for acute fracture or destructive process. The extraperitoneal soft tissues are unremarkable. IMPRESSION: Interval resolution of previously visualized ground glass opacities within the lung bases. Cholelithiasis without CT evidence for acute cholecystitis. No other acute abdominopelvic process identified. Signed by: Dr. Chirag Carranza MD on 12/20/2019 8:53 AM
[2019-12-20] MEDS ORDERED: ULTRAM50 MG PO (10:13)
== END 2019-12-20 10:39 | disposition home or self-care (01) ==
LOC: ER 07:20
DX: K80.20 Calculus of gallbladder without cholecystitis without obstruction (principal); R10.11 Right upper quadrant pain; R11.2 Nausea with vomiting, unspecified
CPT/HCPCS: 36415; 74177; 80053; 80307; 81001; 83690; 85025; 99284; J1885; J2405; J7030; Q9967